=== PATIENT | female | born 1975 | race Caucasian/White ===

== ENCOUNTER → 2020-03-07 | Outpatient (CLI) | payer BC, MEDICARE, SELFPAY ==
[2020-03-07 09:28] VITALS: BMI 37.0
[2020-03-07 10:43] LABS: Absolute Lymphocyte Count 1.51 X10^3/uL (0.83-4.51); Absolute Neutrophil Count 4.6 X10^3/uL (2.0-7.7); Basophil# 0.02 X10^3/uL; Basophil% 0.3 % (0-1); Hematocrit 38.1 % (37-47); Hemoglobin 12.6 g/dL (12.0-15.0); Lymphocyte # 1.51 X10^3/ul (4.0); Lymphocyte % 22.3 % (19-41); Mean Corp Hgb Conc 33.1 g/dL (32-36); Mean Corpuscular Hgb 31.8 pg (27.0-32.0); Mean Corpuscular Volume 96.2 fL (81-99); Mean Platelet Vol. 10.5 fl (6.2-12.0); Monocyte# 0.38 X10^3/uL; Monocyte% 5.6 % (0-10); NRBC Flagged by Analyzer 0 % (0-5); Neutrophil # 4.63 X10^3/uL (2.7-7.7); Neutrophil % 68.5 % (47-70); Platelet Count 273 K/mm3 (150-450); RBC Distribution Width CV 12.6 % (11.6-14.6); RBC Distribution Width SD 43.9 fl (35.1-43.9); Red Blood Count 3.96 M/mm3 (4.2-5.4); White Blood Count 6.8 K/mm3 (4.4-11.0)
[2020-03-07 11:50] LABS: Prolactin 8.8 ng/mL; T4 Free Direct 1.07 ng/dL (0.76-1.46); Thyroid Stim Hormone (TSH) 1.93 uIU/mL (0.358-3.74)
== END | disposition home or self-care (01) ==
LOC: PAVLAB 10:16
PROVIDERS: PCP Family Medicine; Referring Provider Obstetrics & Gynecology; Visit Provider Obstetrics & Gynecology
DX: N92.6 Irregular menstruation, unspecified (principal)
CPT/HCPCS: 36415; 84146; 84439; 84443; 85025

== ENCOUNTER → 2020-03-29 | Outpatient (CLI) | payer BC, MEDICARE, SELFPAY ==
[2020-03-07 09:28] VITALS: BMI 37.0
--- NOTE | 2020-03-29 08:13 | US_ITS ---
STUDY: ULTRASOUND OF THE FEMALE PELVIS - COMPLETE REASON FOR EXAM: Female, 44 years old. IRREGULAR MENSES LMP: 03/08/2020. TECHNIQUE: Transabdominal and Transvaginal TECHNICAL QUALITY: Adequate. COMPARISON: None. FINDINGS: The uterus is anteverted and is in a midline position. The uterus is enlarged and measures 14.2 cm x 7.1 cm x 6.7 cm. There is a Nabothian cyst of the cervix. The endometrium is thickened and measures 15 mm in thickness, and is hyperechoic. There is no demonstrated endometrial mass. There is a 2.4 cm x 2.7cm x 1.3 cm fundal fibroid. I.U.D. - The patient does not have an I.U.D. The right ovary is visualized. The right ovary is enlarged and measures 9.3 cm x 10.7 cm x 9.4 cm. There is a 7.7 cm x 9.6 cm x 8.8 cm right ovarian cyst. There is no visualized right adnexal mass or complex lesion. There is normal arterial and normal venous vascularity. The left ovary is visualized. The left ovary measures 3.6 cm x 4.1 cm x 2.2 cm. There is a 2.4 cm x 2.8 cm x 1.7 cm cyst within There is no visualized left adnexal mass or complex lesion. There is normal arterial and normal venous vascularity. There is no fluid in the cul-de-sac. IMPRESSION: Enlarged fibroid uterus with thickened endometrium. Bilateral ovarian cysts more prominent on the right side which measures 7.7 cm x 9.6 cm x 8.8 cm. Electronically Signed: Mikhail Landon, at 12:56 EDT , Service support , STUDY: ULTRASOUND OF THE FEMALE PELVIS - LIMITED REASON FOR EXAM: Female, 44 years old IRREGULAR MENSES TECHNIQUE: Transabdominal and Transvaginal TECHNICAL QUALITY: Adequate. COMPARISON: None. FINDINGS: The uterus is anteverted and is in a midline position. The uterus measures 14.2 x 7.1 x 6.7 cm. Normal uterine cervix. The endometrium is thickened and measures 15 mm in thickness, and is hyperechoic. There is no demonstrated endometrial mass. There is a 2.4 cm x 2.7 cm x 1.3 cm fundal fibroid. The right ovary measures 9.3 cm x 10.7 cm x 9.4 cm. There is a 7.7 cm x 9.6 cm x 8.8 cm cyst. There is normal arterial and normal venous vascularity. The left ovary measures 3.6 cm x 4.1 cm x 2.2 cm. Is a 2.4 cm x 2.8 cm x 1.7 cm cyst. There is no visualized left adnexal mass or complex lesion. There is normal arterial and normal venous vascularity. There is no fluid in the cul-de-sac. US/Pelvic (Non ) IMPRESSION: Enlarged fibroid uterus with thickened endometrium. Bilateral ovarian cysts more prominent on the right side. Electronically Signed: Mikhail Landon, at 12:58 EDT , Service support ,
--- NOTE | 2020-03-29 08:13 | US_ITS ---
STUDY: ULTRASOUND OF THE FEMALE PELVIS - COMPLETE REASON FOR EXAM: Female, 44 years old. IRREGULAR MENSES LMP: 03/08/2020. TECHNIQUE: Transabdominal and Transvaginal TECHNICAL QUALITY: Adequate. COMPARISON: None. FINDINGS: The uterus is anteverted and is in a midline position. The uterus is enlarged and measures 14.2 cm x 7.1 cm x 6.7 cm. There is a Nabothian cyst of the cervix. The endometrium is thickened and measures 15 mm in thickness, and is hyperechoic. There is no demonstrated endometrial mass. There is a 2.4 cm x 2.7cm x 1.3 cm fundal fibroid. I.U.D. - The patient does not have an I.U.D. The right ovary is visualized. The right ovary is enlarged and measures 9.3 cm x 10.7 cm x 9.4 cm. There is a 7.7 cm x 9.6 cm x 8.8 cm right ovarian cyst. There is no visualized right adnexal mass or complex lesion. There is normal arterial and normal venous vascularity. The left ovary is visualized. The left ovary measures 3.6 cm x 4.1 cm x 2.2 cm. There is a 2.4 cm x 2.8 cm x 1.7 cm cyst within There is no visualized left adnexal mass or complex lesion. There is normal arterial and normal venous vascularity. There is no fluid in the cul-de-sac. IMPRESSION: Enlarged fibroid uterus with thickened endometrium. Bilateral ovarian cysts more prominent on the right side which measures 7.7 cm x 9.6 cm x 8.8 cm. Electronically Signed: Mikhail Landon, at 12:56 EDT , Service support , STUDY: ULTRASOUND OF THE FEMALE PELVIS - LIMITED REASON FOR EXAM: Female, 44 years old IRREGULAR MENSES TECHNIQUE: Transabdominal and Transvaginal TECHNICAL QUALITY: Adequate. COMPARISON: None. FINDINGS: The uterus is anteverted and is in a midline position. The uterus measures 14.2 x 7.1 x 6.7 cm. Normal uterine cervix. The endometrium is thickened and measures 15 mm in thickness, and is hyperechoic. There is no demonstrated endometrial mass. There is a 2.4 cm x 2.7 cm x 1.3 cm fundal fibroid. The right ovary measures 9.3 cm x 10.7 cm x 9.4 cm. There is a 7.7 cm x 9.6 cm x 8.8 cm cyst. There is normal arterial and normal venous vascularity. The left ovary measures 3.6 cm x 4.1 cm x 2.2 cm. Is a 2.4 cm x 2.8 cm x 1.7 cm cyst. There is no visualized left adnexal mass or complex lesion. There is normal arterial and normal venous vascularity. There is no fluid in the cul-de-sac. US/Transvaginal Non- IMPRESSION: Enlarged fibroid uterus with thickened endometrium. Bilateral ovarian cysts more prominent on the right side. Electronically Signed: Mikhail Landon, at 12:58 EDT , Service support ,
--- NOTE | 2020-03-29 08:15 | BI_ITS ---
MAMMOGRAPHY - BILATERAL SCREENING REASON FOR EXAM: Female, 44 years old. Routine annual screening examination. PERTINENT HISTORY: Non-contributory. History of bilateral breast reduction surgery. TECHNIQUE: Digital bilateral breast marychuy (3D mammographic acquisition) in the CC and MLO projections. 2-D mediolateral oblique (MLO) and craniocaudad (CC) views of both breasts were obtained. CAD: Full Field Digital Mammography with Computer Added Detection was performed. COMPARISON: Comparison is made with prior abdomen examination dated 08/10/2016. FINDINGS: Breast Composition: The breasts are almost entirely fatty. There are no dominant masses or suspicious calcifications. Stable benign-appearing bilateral axillary lymph nodes. No other significant abnormalities are identified. There has been no significant change since the prior study. BI/SCREEN MAMM (CAD) W/MARYCHUY BILAT IMPRESSION: Stable bilateral screening mammogram. Yearly follow-up mammogram recommended. (A) ASSESSMENT CATEGORY: BIRADS Category 2: Benign. A letter regarding these results will be sent to the patient by the facility within 30 days. Approximately 10% of breast cancers are not detected by mammography. A normal mammogram should not delay biopsy of a clinically suspicious abnormality. [id number] Electronically Signed: Mikhail Landon, at 10:26 EDT , Service support ,
[2020-04-01 21:23] LABS: HPV APTIMA, High Risk Negative (Negative)
== END | disposition home or self-care (01) ==
PROVIDERS: PCP Family Medicine; Referring Provider Obstetrics & Gynecology; Visit Provider Obstetrics & Gynecology
DX: N92.6 Irregular menstruation, unspecified (principal); Z12.31 Encounter for screening mammogram for malignant neoplasm of breast; Z12.4 Encounter for screening for malignant neoplasm of cervix
CPT/HCPCS: 76830; 76856; 77063; 77067; 87624; 88175; G0145

== ENCOUNTER 2020-04-19 06:40 | Day surgery (SDC) | payer BC, MEDICARE, SELFPAY ==
[2020-03-30 15:54] VITALS: BMI 37.0
--- NOTE | 2020-04-13 10:23 | EKG12_ITS ---
Test Reason : PRE OP Blood Pressure : / mmHG Vent. Rate : 079 BPM Atrial Rate : 079 BPM P-R Int : 156 ms QRS Dur : 086 ms QT Int : 380 ms P-R-T Axes : 045 -34 032 degrees QTc Int : 435 ms Normal sinus rhythm Left axis deviation Nonspecific T wave abnormality Abnormal ECG Confirmed by SHRADDHA BEGUM, ARTEMIO ([id number]), manager editorial HENRRY KC ([id number]) on 04/14/2020 8:14:05 AM Referred By: Margaret Teague Confirmed By:ARTEMIO LLANES MD
--- NOTE | 2020-04-16 00:59 | PCM.HPOB.BLA ---
- Problem List (1) Abnormal uterine bleeding Status: Acute Comment: recommend lab evaluation, imaging, and discussed hormonal therapy. fu for emb and liletta insertion. handouts given and patient info websites recommended. (2) Bilateral ovarian cysts Status: Acute Comment: recommend removal of ovary and drainage of cysts. Enlarged 14 cm fibroid uterus with thickened endometrium. Bilateral ovarian cysts more prominent on the right side which measures 7.7 cm x 9.6 cm x 8.8 cm. left 3 cm (3) Endometriosis Status: Acute Comment: diagnosed in past by Dr Hardwick. History and Physical Date of Admission: 04/19/20 Intake Vital Signs 03/30/20 BMI 37.0 03/30/20 Height 4 ft 11 in 03/30/20 Weight: 184 lb 03/30/20 BMI 37.1 03/30/20 BP 118/84 H Intake Visit Reasons: consult Chief Complaint: surgical consult Technical Writer And Editor Required: No Is patient in pain?: No Allergies acetaminophen [From [place]] Allergy (Mild, Verified 03/30/20 15:53) vomiting hydrocodone [From [place]] Allergy (Mild, Verified 03/30/20 15:53) vomiting oxycodone [From [place]] Allergy (Mild, Verified 03/30/20 15:53) vomiting Medications omeprazole 20 mg capsule,delayed release 20 mg PO DAILY 03/07/20 [History Confirmed 03/30/20] fluoxetine 20 mg capsule 20 mg PO DAILY #30 cap 03/08/20 [Rx Confirmed 03/30/20] Is last menstrual period known: No Post menopausal: No Patient : No : No PFSH Medical History Heartburn (Chronic) Endometriosis (Acute) Fibromyalgia (Chronic) Surgical History S/P colonoscopy (Acute) S/P (Resolved) S/P abdominoplasty (Resolved) S/P cholecystectomy (Resolved) S/P dilation and curettage (Resolved) S/P laparoscopy (Resolved) Status post breast reduction (Resolved) Family History Mother Colon cancer CVA (cerebral vascular accident) Social History (Updated 03/30/20 @ 16:[address] Margaret Teague MD) Smoking Status: Never smoker alcohol intake: never substance use type: does not use caffeine: Yes what type of physical activity do you participate in: yoga frequency: 1-2 times per week seatbelt use: always do you feel safe at home: Yes additional social history: Wwmglno-Ixqmlf-Nxwasj [employer]upp Patient is unemployed HPI consult: Details: CHARITY CANTOR is a 44 year old who presents for fu of AUB and enlarged uterus, cervical stenosis. she was planning on an IUD and was unable to have it placed. she had bilateral ovarian cysts seen on ultrasound one of which is 9 cm. She has persistent heavy bleeding and is needing definitive therapy. Female Reproductive History Menopausal Symptoms: Yes hot flashes, Yes night sweats, Yes difficulty concentrating, No change in libido Pregancy History 2 Elective abortions Hx Para 1 Spontaneous abortions 1 Hx # Term Pregnancies Ectopic pregnancies Hx # Pregnancies Multiple births 1 # of living children 2 Past Pregnancies Del. Date Name GA/Weeks Outcome Route Bth Weight Infant Gen Labor Lgth Anesthesia Del [facility] Provider FOB Unknown Memo/Chirag-2000 ROS Const Constitutional: Reports difficulty sleeping, fatigue, night sweats and weight gain; denies fever(s), headache(s), increased appetite, poor appetite or weight loss Eyes Eyes: Reports blurry vision and change in vision ENT ENT: Denies dry mouth Cardio Card: Denies chest pain Resp Resp: Denies cough or dyspnea GI GI: Reports as per HPI, abdominal pain, bloating, cramping and nausea; denies constipation or vomiting : Reports as per HPI, hot flashes, heavy periods, metrorrhagia and pelvic pain; denies difficulty urinating, painful urination, nipple discharge, urinary frequency, urinary incontinence, urinary hesitancy, urinary urgency, vaginal discharge, vaginal dryness, vaginal odor or vaginal itching Musc Musc: Reports joint pain and back pain Skin Skin/Breast: Denies nipple discharge Psych Psych: Reports anxiety, depression, difficulty concentrating, irritability and panic attacks; denies change in sex drive Exam Const General: cooperative, healthy appearing, comfortable, no acute distress, well developed Orientation: alert HENMT Head: normal to inspection, normocephalic Neck Neck: normal visual inspection, trachea midline Thyroid: thyroid normal Resp Effort & Inspection: normal respiratory effort GI Inspection: normal to inspection, non-distended Palpation: soft, no hepatosplenomegaly Musc Other: gross motor intact no deficits, full bilateral strength Skin General: no rashes or lesions noted Neuro General: alert, awake, moves all extremities, no focal motor deficits Motor: muscle tone normal throughout Extrem General: normal to inspection, no pedal edema Psych Appearance: grossly normal Mental Status: mental status grossly normal Affect: normal affect Speech and Movement: speech and movement normal Assessment & Plan Problems 1. Bilateral ovarian cysts N83.201; N83.202 recommend 2. Abnormal uterine bleeding N93.9 recommend lab evaluation, imaging, and discussed hormonal therapy. failed EMB and uterus enlarged that surgical treatment is recommended. handouts given and patient info websites recommended. 3. Endometriosis N80.9 diagnosed in past by Dr Hardwick. Plan plan [facility] oophorectomy, ovarian cystectomy and cystoscopy. After discussing the patient's diagnosis and treatment plan options, patient wishes to proceed with surgical management. I have discussed with the patient the risks, benefits, and alternatives of the procedure which include but are not limited to risks of anesthesia, bleeding, infection, possible damage to bowel, bladder, or surrounding vasculature which could lead to additional surgery to evaluate any complications. Patient agrees to procedure and wishes to proceed. ACOG/uptodate references given for additional information regarding procedure. Coding Level of Care Code Off vis,est,level 5 Diagnoses Bilateral ovarian cysts N83.201; N83.202 Abnormal uterine bleeding N93.9 Endometriosis N80.9
[2020-04-19] VITALS (14 sets, daily range): BP systolic 85–137; BP diastolic 38–82; PULSE 71–100; RESP 14–18; TEMP 36.1–37.1; O2SAT 95–100; BMI 37.1
[2020-04-19] MEDS: dexAMETHasone 10 MG/ML Vial 8 MG IV (07:00)
[2020-04-19] MEDS: Enoxaparin 40 MG/0.4 ML Syringe SC (07:00)
[2020-04-19 07:16] LABS: Absolute Lymphocyte Count 1.56 X10^3/uL (0.83-4.51); Absolute Neutrophil Count 4.1 X10^3/uL (2.0-7.7); Basophil# 0.03 X10^3/uL; Basophil% 0.5 % (0-1); Eosinophil# 0.12 X10^3/uL; Eosinophils% 1.9 % (0-5); Hematocrit 40.5 % (37-47); Hemoglobin 13.2 g/dL (12.0-15.0); Lymphocyte # 1.56 X10^3/ul (4.0); Lymphocyte % 25.2 % (19-41); Mean Corp Hgb Conc 32.6 g/dL (32-36); Mean Corpuscular Hgb 31.3 pg (27.0-32.0); Mean Platelet Vol. 10.1 fl (6.2-12.0); Monocyte# 0.33 X10^3/uL; Monocyte% 5.3 % (0-10); NRBC Flagged by Analyzer 0 % (0-5); Neutrophil # 4.14 X10^3/uL (2.7-7.7); Neutrophil % 66.8 % (47-70); Platelet Count 306 K/mm3 (150-450); RBC Distribution Width CV 12.6 % (11.6-14.6); Red Blood Count 4.22 M/mm3 (4.2-5.4); White Blood Count 6.2 K/mm3 (4.4-11.0)
[2020-04-19 07:17] LABS: Internal QC Validated? YES +Cl - CLEAR BKGD; Pregnancy, Urine Negative Negative
--- NOTE | 2020-04-19 07:25 | OP.PCM_ITS ---
Problem List (1) Abnormal uterine bleeding Status: Acute Comment: recommend lab evaluation, imaging, and discussed hormonal therapy. fu for emb and liletta insertion. handouts given and patient info websites recommended. (2) Bilateral ovarian cysts Status: Acute Comment: recommend removal of ovary and drainage of cysts. Enlarged 14 cm fibroid uterus with thickened endometrium. Bilateral ovarian cysts more prominent on the right side which measures 7.7 cm x 9.6 cm x 8.8 cm. left 3 cm (3) Endometriosis Status: Acute Comment: diagnosed in past by Dr Hardwick. Report of Operation Date of Procedure: 04/19/20 Pre-Operative Diagnosis: aub enlarged uterus ovarian cyst Post-Operative Diagnosis: same dense vesicouterine and uterine to anterior abdominal wall adhesions Surgery/Procedure Performed:: lavh bs cystoscopy Description of Surgical Findings:: Extensive vesicouterine to anterior abdominal wall adhesions dense sclerotic parametrial tissue. Pelvic congestion. Obliteration of round ligament on the right side and 3 times the thickness of around ligament on left side. 10 cm right ovary enlarged with simple cyst filled with clear fluid. Left ovary polycystic in appearance with 1 follicular cyst present. Omental to anterior abdominal wall adhesions. Enlarged uterus 14 cm size with multiple fibroids dense sclerotic tissue. Minimal uterine descent and limited vaginal access. Normal bladder lining bilateral strong ureteral spray day treatment clinician/art therapist: Kaitlynn Fairchild Type of Anesthesia:: General Special Medications: teresa Specimen's removed: uterus tubes Drains: tobias Estimated Blood Loss (mL): 150 Fluids Replaced: crystalloid Description of Procedure: Patient received preoperative antibiotics and SCDs were on preoperatively. Patient was taken back to the operating room and placed in the dorsal lithotomy position. General anesthesia was induced and patient was prepped and draped in normal sterile fashion. Uterine manipulator was placed inside the uterus and Tobias catheter placed in the bladder. The umbilicus was grasped with towel clamps and an intraumbilical incision was made after injecting with quarter percent Marcaine and a Veress needle entered into the abdomen confirmed to be intra-abdominal with a low opening pressure. Abdomen was insufflated with CO2 gas and the Veress needle removed and the 5 mm trocar was placed under direct visualization without complication. Right and left lower quadrants were transilluminated and injected with quarter percent Marcaine and 5 mm ports placed under direct visualization. Pelvis was well visualized see operative findings for additional information. The omental to anterior abdominal wall adhesions were transected with the LigaSure device and then adhesio lysis began to release the anterior uterine corpus off of the anterior abdominal wall. These were very dense adhesions and required blunt dissection as well as sharp and cautery with the LigaSure device. This freed up the right side of the uterus down to the level of the round ligament on the right side which was obliterated due to adhesions and the enlarged uterine corpus. A 10 cm ovarian cyst was noted and opened and drained for clear serous fluid. The right ovary was removed as well as the right and left fallopian tubes which were transected across with the miso salpinx with the LigaSure device and the right infundibulopelvic ligament was transected with the LigaSure device. The left round ligament was also second 3 times its temporal size and this was transected and pieces using the LigaSure device and adhesio lysis was performed to release the lower uterine corpus off of the anterior abdominal wall in the bladder area. Extensive dissection was performed utilizing hydrodissection, blunt and also sharp dissection. Using a LigaSure device the bladder flap was created and opened and the uterine arteries were isolated as much as possible and burned and transected using the LigaSure device. Utilizing a 30 degree scope and changing between the 3 different port sites and using an DataPad uterine manipulator, the uterine blood supply was cauterized and cut bilaterally and the parametrial area was completely dissected to a portion of the vaginal procedure to begin. In total approximately 50 minutes were spent due to adhesio lysis and difficulty of the surgery due to the dense adhesions and the enlarged uterine size. Attention was then paid to the vaginal portion of the procedure and the cervix was grasped with Marshall clamps and circumferentially injected with dilute vasopressin. A circumferential incision was made and the vaginal mucosa was mobilized off posteriorly and the cul-de-sac entered into sharply and a longneck speculum placed. The anterior cul-de-sac was then identified and entered into sharply. The uterosacral ligaments were clamped cut and suture ligated with 0 Monocryl bilaterally followed by the cardinal ligaments which were clamped cut and suture ligated bilaterally with 0 Monocryl. The uterus serially descended and was removed without difficulty with significant morcellation. Pelvic sidewall pedicles were checked and noted to have excellent hemostasis. The vaginal mucosa was reapproximated incorporating the posterior peritoneum. This was reapproximated using 0 Vicryl [id number] sutures. Excellent hemostasis was noted. The cystoscopy was then performed and bilateral ureteral strong spray was noted and the bladder was noted to have no abnormality or lesions seen. Tobias catheter was replaced and then attention paid to the abdominal portion of the procedure again. The pelvis and cul-de-sac was well visualized and no significant active bleeding noted but some raw areas were seen on the peritoneum and therefore Teresa was applied. Pressure was taken down and the areas visualized and noted of excellent hemostasis. All ports were removed under direct visualization without complication and the abdomen was desufflated of air. The instruments removed from the abdomen and the vagina vaginal sweep was negative. Port sites on the abdomen were closed with 4-0 Monocryl interrupted sutures and Steri's and windows were applied. She was awoken and taken recovery in stable condition. Grafts/Implants Used: none - Complications none - Admit VTE Documentation VTE Present on Admission: No VTE Mechan Device Prophylaxis: SCD's VTE Pharm Prophylaxis ordered?: Yes Multi Select Codes - Urinary/Genital Urinary/Genital CPT Codes: 70900 Cystoscopy, 98287 LAVH+BS/O >250gr Uterus, 78839 Lysis of adhesions, laproscopic - 50 minutes
[2020-04-19 07:27] LABS: Anion Gap 5 (5-15); BUN 10 mg/dL (7-18); Calcium,Total 8.8 mg/dL (8.5-10.1); Chloride 107 mmol/L (98-107); Creatinine, Serum 0.84 mg/dL (0.55-1.02); EST Glomerular Filtration Rate 78 mL/min (>60); Est Glom Filt Rate - Afr Amer 94 mL/min (>60); Glucose 111 mg/dL (74-106); Magnesium 2.2 mg/dL (1.6-2.6); Potassium 3.5 mmol/L (3.5-5.1); Sodium Level 139 mmol/L (136-145)
[2020-04-19 07:46] LABS: Bedside Glucose 115 mg/dL (70-110)
[2020-04-19] MEDS: Lactated Ringers 1,000 ML 40 ML IV (08:02)
[2020-04-19] MEDS: Phenazopyridine 95 MG Tablet 190 MG PO (08:03)
[2020-04-19] MEDS: Celecoxib 200 MG Capsule 400 MG PO (08:03)
[2020-04-19] MEDS: Gabapentin 600 MG Tablet PO (08:04)
[2020-04-19] MEDS: Scopolamine 1mg/72hr Patch 1 PATCH TRANSDERM. (08:05)
[2020-04-19] MEDS: Acetaminophen 500 MG Tablet 1000 MG PO ×3 (08:08→17:41)
--- NOTE | 2020-04-19 08:45 | HYST_PTH ---
PATIENT: CHARITY CANTOR [place] [facility] [place][id number] AGE/SX: 45/F ROOM: RE04/19/[address]: Dr. Margaret Teague MD : [id number] BED: DIS: 04/20/2020 SPEC #: [id number] RECD: 04/19/20 12:28 STATUS: MARY SHANTA #: [id number] ALICIA: 04/19/20 08:[address]: Margaret Teague DEPT: SURGICAL PATHOLOGY RECD BY: Karen Faust ENTERED: 04/19/20 13:32 SP TYPE: HYSTERECT OTHR DR: Dr. Jah Leyva MD Tissues: Uterus, NOS Procedures: Special Stain Group II Mucicarmine Stain (control) Surgery Specimen Level V HEADER OPERATION: ERAS, hysterectomy, LAVH, salpingectomy, right oophorectomy PRE-OP DIAGNOSIS: Bilateral ovarian cysts, abnormal uterine bleeding, endometriosis TISSUE SUBMITTED: Uterus, bilateral fallopian tubes, right ovary MICROSCOPIC DIAGNOSIS Uterus, hysterectomy: Cervix - squamous metaplasia, minimal chronic inflammation and nabothian cysts. Endometrium - transition endometrium. Myometrium - leiomyomas and focal superficial adenomyosis. Right and left fallopian tubes - no pathologic change. Right ovary - mucinous cystadenoma. See comment. AM:rufus 04/20/20 COMMENT Mucin stain with matched control was used in the evaluation of this case. MICROSCOPIC DESCRIPTION Slides are reviewed. GROSS DESCRIPTION Received in fixative is one container labeled with the patient's name and designated uterus. The specimen consists of a uterus received in eight fragments ranging in size from 3 cm to 8 cm and in aggregate weighing 207 gm. A fallopian tube is attached to the largest fragment. The fallopian tube measures 6 cm in length and 0.7 cm in average diameter and contains a normal fimbriated end. The presumed endocervical segment measures 5.5 cm in length. Due to fragmentation, the endometrial cavity is obstructed. The reddish-whitt endometrium measures up to 0.2 cm in thickness. The myometrium measures 2.2 cm in average thickness and contains two white rubbery nodules ranging in size from 0.3 to 0.4 cm. Also present free in the container is a pink-whitt cystic ovary with attached fallopian tube. The cystic ovary measures 7 x 6.5 x 1.5 cm. The adjacent fallopian tube measures 5 cm in length and 0.7 cm in average diameter. No tubo-ovarian adhesions are evident. The external appears smooth and glistening. No papillary projections or excrescences are identified. The external surface of the ovary is inked and the ovary serially sectioned to reveal a smooth, glistening inner surface. The cystic ovary averages 0.5 cm in thickness. Apparel Pattern Maker sections are submitted cassettes as follows: 1 - ecto- and endocervix, 2 - fallopian tube attached to uterus, 3 - endometrium/myometrium, 4 - endometrium/ myometrium and myometrial nodules, 5 & 6 - endometrium/myometrium, 7 - fallopian tube attached to cystic ovary, 8-12 - cystic ovary. / AM:rufus 04/19/20 TC:1 CPT: 24154, 54387
--- NOTE | 2020-04-19 08:48 | DCINST_ITS ---
Discharge Diet: No Restrictions Discharge Activity: Return to Normal Activity, May Not Drive, May Shower May resume sexual activity in: 6-8 weeks Call your doctor if your incision/area has: Continuous Slow Oozing, Sudden Increased Bleeding, Increased Pain/ Swelling, Increased Redness, Foul Smelling Discharge Call your doctor if you observe: Fever of 101 or Higher, Inability to urinate, Inability to have a bowel movement, Using more than one pad per hour Allergies/Adverse Reactions: Allergies hydrocodone [From [place]] Allergy (Mild, Verified 04/19/20 07:27) vomiting oxycodone [From Percocet] Allergy (Mild, Verified 04/19/20 07:27) vomiting Medications to take at Discharge fluoxetine 40 mg capsule 40 mg PO DAILY #30 cap 03/30/20 Acyclovir [Zovirax] 400 mg PO BID PRN 04/11/20 Multivitamin with Minerals [Multiple Vitamin] 1 ea PO DAILY 04/11/20 Pantoprazole Sodium [Protonix] 40 mg PO DAILY 04/11/20 Naproxen [Naprosyn] 250 - 500 mg PO Q8H PRN PRN #30 tab 04/19/20 The following prescriptions were given: Naproxen [Naprosyn] 250 - 500 mg PO Q8H PRN PRN #30 tab PRN Reason: MILD PAIN Transmission Status: Received by [facility] Orders to be completed after discharge: Type & Screen - PAT ONLY Time Frame: 04/13/20, Facility: [facility], Location: Laboratory Basic Metabolic Profile (BMP) Time Frame: 04/13/20, Facility: [facility], Location: Laboratory CBC W/Diff, Automated Time Frame: 04/13/20, Facility: [facility], Location: Laboratory Magnesium Time Frame: 04/13/20, Facility: [facility], Location: Laboratory Primary Care Physician: Jah Leyva MD [Primary Care Provider] - Test Results: Test results from this visit will be discussed in further detail at your follow- up appointment, if applicable. Please Follow Up With: Margaret Teague MD - [phone]
[2020-04-19] MEDS: Cefazolin 2 GM in 0.9% Normal Saline 100 ML IV (08:50)
[2020-04-19] MEDS: Lubricating Jelly 60 GM Tube 30 GM TOPICAL (09:01)
[2020-04-19] MEDS: Vasopressin 20 UNITS/ML Vial (10:00)
[2020-04-19] MEDS: Bupivacaine 0.25% 30 ML Vial (11:00)
[2020-04-19] MEDS: Lactated Ringers 1,000 ML 100 ML IV (11:43)
[2020-04-19] MEDS: Lactated Ringers 1,000 ML 70 ML IV (12:12)
[2020-04-19] MEDS: Docusate Sodium 100 MG Capsule PO ×2 (13:44→21:45)
[2020-04-19] MEDS: Ketorolac 30 MG/ML Syringe IV ×2 (14:34→20:18)
[2020-04-20] MEDS: Acetaminophen 500 MG Tablet 1000 MG PO (00:02)
[2020-04-20] MEDS: Ketorolac 30 MG/ML Syringe IV ×2 (01:58→08:11)
[2020-04-20 02:25] VITALS: BP 108/54; PULSE 82; RESP 16; TEMP 36.8; O2SAT 97
[2020-04-20 06:58] LABS: Hematocrit 34.7 % (37-47); Hemoglobin 11.1 g/dL (12.0-15.0); Mean Corpuscular Hgb 30.9 pg (27.0-32.0); Mean Corpuscular Volume 96.7 fL (81-99); Mean Platelet Vol. 10.4 fl (6.2-12.0); Platelet Count 269 K/mm3 (150-450); RBC Distribution Width CV 12.3 % (11.6-14.6); RBC Distribution Width SD 44.2 fl (35.1-43.9); Red Blood Count 3.59 M/mm3 (4.2-5.4); White Blood Count 10.8 K/mm3 (4.4-11.0)
[2020-04-20 08:10] VITALS: BP 112/69; PULSE 64; RESP 18; TEMP 36.7; O2SAT 99
[2020-04-20] MEDS: 0.9% Saline Lock 10 ML Syringe IV (08:11)
--- NOTE | 2020-04-20 08:18 | PN.OBGYN_ITS ---
Patient Problems: Active and Suspected Problems (Last Reviewed 03/30/20 @ 15:54 by Whitney Allen) History of right oophorectomy (Acute ~04/19/20) H/O bilateral salpingectomy (Acute ~04/19/20) History of laparoscopic-assisted vaginal hysterectomy (Acute ~04/19/20) Subjective: Patient seen and examined. Doing well. Pain controlled. Denies nausea and vomiting. Passing gas. Ambulating without difficulty. Asking how soon she can go home. Objective: Laboratory Tests 04/20/20 04/19/20 04/19/20 Range/Units 05:25 Unknown 07:39 WBC 10.8 (4.4-11.0) K/mm3 RBC 3.59 L (4.2-5.4) M/mm3 Hgb 11.1 L (12.0-15.0) g/dL Hct 34.7 L (37-47) % MCV 96.7 (81-99) fL MCH 30.9 (27.0-32.0) pg MCHC 32.0 (32-36) g/dL RDW Std Deviation 44.2 H (35.1-43.9) fl RDW Coeff of Kwaku 12.3 (11.6-14.6) % Plt Count 269 (150-450) K/mm3 MPV 10.4 (6.2-12.0) fl Immature Gran % (Auto) (0.0-0.9) % Neut % (Auto) (47-70) % Lymph % (Auto) (19-41) % [place] % (Auto) (0-10) % Eos % (Auto) (0-5) % Baso % (Auto) (0-1) % Absolute Neuts (auto) (2.0-7.7) X10^3/uL Absolute Lymphs (auto) (0.83-4.51) X10^3/uL Nucleated RBC % (0-5) % Sodium (136-145) mmol/L Potassium (3.5-5.1) mmol/L Chloride (98-107) mmol/L Carbon Dioxide (21.0-32.0) mmol/L Anion Gap (5-15) BUN (7-18) mg/dL Creatinine (0.55-1.02) mg/dL Est GFR (MDRD) Af Amer (>60) mL/min Est GFR (MDRD) Non-Af (>60) mL/min BUN/Creatinine Ratio (10-20) RATIO Glucose (74-106) mg/dL Calcium (8.5-10.1) mg/dL Magnesium (1.6-2.6) mg/dL Urine Test Negative Negative COVID-19 (SORIN) (Not Detected) POC Glucose 115 H (70-110) mg/dL Blood Type Antibody Screen 04/19/20 04/19/20 04/19/20 Range/Units 07:10 07:10 07:10 WBC 6.2 (4.4-11.0) K/mm3 RBC 4.22 (4.2-5.4) M/mm3 Hgb 13.2 (12.0-15.0) g/dL Hct 40.5 (37-47) % MCV 96.0 (81-99) fL MCH 31.3 (27.0-32.0) pg MCHC 32.6 (32-36) g/dL RDW Std Deviation 44.0 H (35.1-43.9) fl RDW Coeff of Kwaku 12.6 (11.6-14.6) % Plt Count 306 (150-450) K/mm3 MPV 10.1 (6.2-12.0) fl Immature Gran % (Auto) 0.300 (0.0-0.9) % Neut % (Auto) 66.8 (47-70) % Lymph % (Auto) 25.2 (19-41) % [place] % (Auto) 5.3 (0-10) % Eos % (Auto) 1.9 (0-5) % Baso % (Auto) 0.5 (0-1) % Absolute Neuts (auto) 4.1 (2.0-7.7) X10^3/uL Absolute Lymphs (auto) 1.56 (0.83-4.51) X10^3/uL Nucleated RBC % 0 (0-5) % Sodium 139 (136-145) mmol/L Potassium 3.5 (3.5-5.1) mmol/L Chloride 107 (98-107) mmol/L Carbon Dioxide 27.0 (21.0-32.0) mmol/L Anion Gap 5 (5-15) BUN 10 (7-18) mg/dL Creatinine 0.84 (0.55-1.02) mg/dL Est GFR (MDRD) Af Amer 94 (>60) mL/min Est GFR (MDRD) Non-Af 78 (>60) mL/min BUN/Creatinine Ratio 12.0 (10-20) RATIO Glucose 111 H (74-106) mg/dL Calcium 8.8 (8.5-10.1) mg/dL Magnesium 2.2 (1.6-2.6) mg/dL Urine Test Negative COVID-19 (SORIN) (Not Detected) POC Glucose (70-110) mg/dL Blood Type A POSITIVE Antibody Screen NEGATIVE 04/13/20 Range/Units 10:25 WBC (4.4-11.0) K/mm3 RBC (4.2-5.4) M/mm3 Hgb (12.0-15.0) g/dL Hct (37-47) % MCV (81-99) fL MCH (27.0-32.0) pg MCHC (32-36) g/dL RDW Std Deviation (35.1-43.9) fl RDW Coeff of Kwaku (11.6-14.6) % Plt Count (150-450) K/mm3 MPV (6.2-12.0) fl Immature Gran % (Auto) (0.0-0.9) % Neut % (Auto) (47-70) % Lymph % (Auto) (19-41) % [place] % (Auto) (0-10) % Eos % (Auto) (0-5) % Baso % (Auto) (0-1) % Absolute Neuts (auto) (2.0-7.7) X10^3/uL Absolute Lymphs (auto) (0.83-4.51) X10^3/uL Nucleated RBC % (0-5) % Sodium (136-145) mmol/L Potassium (3.5-5.1) mmol/L Chloride (98-107) mmol/L Carbon Dioxide (21.0-32.0) mmol/L Anion Gap (5-15) BUN (7-18) mg/dL Creatinine (0.55-1.02) mg/dL Est GFR (MDRD) Af Amer (>60) mL/min Est GFR (MDRD) Non-Af (>60) mL/min BUN/Creatinine Ratio (10-20) RATIO Glucose (74-106) mg/dL Calcium (8.5-10.1) mg/dL Magnesium (1.6-2.6) mg/dL Urine Test Negative COVID-19 (SORIN) Not Detected (Not Detected) POC Glucose (70-110) mg/dL Blood Type Antibody Screen - Physical Exam Vitals/I&O's: Vital Signs Temp Pulse Resp BP Pulse Ox 98.0 F 64 18 112/69 99 04/20/20 08:10 04/20/20 08:10 04/20/20 08:10 04/20/20 08:10 04/20/20 08:10 Oxygen Flow Rate (L/min) 6 Oxygen Delivery Method Room Air Weight: 183 lb 13.848 oz Body Mass Index (BMI) 37.1 Intake and Output for Last 24 Hours 04/18/20 04/19/20 04/20/20 23:59 23:59 23:59 Intake Total 3015 / 3015 1000 / 1000 Output Total 2450 / 3900 1750 / 1750 Balance 565 / -885 -750 / -750 General: Alert, Oriented x3, Cooperative HEENT: Atraumatic, PERRLA, EOMI, Normocephalic Neck: Supple, No JVD, Negative Carotid Bruits Lungs: Clear to auscultation, Normal air movement Cardiovascular: Regular rate, No murmurs Abdomen: Bowel Sounds Present, Soft, Non Tender, - - incisions c/d/i with dressings in place Extremities: No edema, Capillary Refill Less than 3 Seconds Skin: No rashes, No breakdown Musculoskeletal: No Tenderness to Palpation of Joints or Extremities Neurological: Cranial nerves II-XII grossly intact Psych/Mental Status: Normal Affect, Appropriate Laboratory Results 04/20/20 05:25: WBC 10.8, RBC 3.59 L, Hgb 11.1 L, Hct 34.7 L, MCV 96.7, MCH 30.9, MCHC 32.0, RDW Std Deviation 44.2 H, RDW Coeff of Kwaku 12.3, Plt Count 269, MPV 10.4 Current Medications Acetaminophen (Tylenol) 1,000 mg PO Q6 DA Last Admin: 04/20/20 06:47 Dose: Not Given Documented by: Docusate Sodium (Colace) 100 mg PO BID [facility] Last Admin: 04/19/20 21:45 Dose: 100 mg Documented by: Enoxaparin Sodium (Lovenox) 40 mg SC DAILY [facility] Lactated Ringer's () 1,000 mls @ 70 mls/hr IV .[id number] [facility] Stop: 04/20/20 11:45 Last Admin: 04/20/20 02:53 Dose: Not Given Documented by: Sodium Chloride () 250 mls @ 15 mls/hr IV .[id number] PRN PRN Reason: Saline Flush Sodium Chloride () 250 mls @ 15 mls/hr IV .[id number] PRN PRN Reason: Additional IVPB Infusion Ketorolac Tromethamine (Toradol (Bkc)) 30 mg IV Q6H [facility] Stop: 04/20/20 14:01 Last Admin: 04/20/20 08:11 Dose: 30 mg Documented by: Magnesium Chloride ([email or web address]) 128 mg PO DAILY PRN PRN PRN Reason: Constipation Nutritional Formula (Lactose Free) (Ensure Enlive) 120 ml PO TIDCM [facility] Last Admin: 04/20/20 08:11 Dose: 120 ml Documented by: Ondansetron HCl (Zofran Odt) 4 mg PO Q6H PRN PRN PRN Reason: NAUSEA Sodium Chloride () 10 - 40 ml IV UD PRN PRN Reason: SALINE FLUSH Last Admin: 04/20/20 08:11 Dose: 10 ml Documented by: Medical Necessity - Tobacco Use Smoking Status: Never smoker Tobacco Use: Non-smoker Assessment/Plan All Active Problems (Last Reviewed 03/30/20 @ 15:54 by Whitney Allen) History of right oophorectomy (Acute ~04/19/20) H/O bilateral salpingectomy (Acute ~04/19/20) History of laparoscopic-assisted vaginal hysterectomy (Acute ~04/19/20) Bilateral ovarian cysts (Acute) Depression with anxiety (Acute) Abnormal uterine bleeding (Acute) Endometriosis (Acute) POD#1 s/p LAVH, BS - Doing well this am - Ambulating without difficulty - Post op Hb stable - Pain controlled - Tolerating PO without nausea or vomiting - Incisions c/d/i - [place] out this am - Discharge orders placed - discussed homegoing pain meds. Plan for Tylenol #3
[2020-04-20] MEDS: Enoxaparin 40 MG/0.4 ML Syringe SC (09:19)
[2020-04-20] MEDS: Docusate Sodium 100 MG Capsule PO (09:19)
[2020-04-20 10:15] VITALS: O2SAT 96
== END 2020-04-20 10:20 | disposition home or self-care (01) ==
LOC: SDC 06:40 → AC 06:40 → MS3 04-20 09:15
PROVIDERS: Anesthesiology; PCP Family Medicine; Referring Provider Obstetrics & Gynecology; Visit Provider Obstetrics & Gynecology
PROC: 0UT9FZZ Resection of Uterus, Via Natural or Artificial Opening With Percutaneous Endoscopic Assistance (ICD-10-PCS; CPT 58552; principal; 2020-04-19 08:20)
DX: N87.9 Dysplasia of cervix uteri, unspecified (principal); N88.8 Other specified noninflammatory disorders of cervix uteri; N72 Inflammatory disease of cervix uteri; D25.9 Leiomyoma of uterus, unspecified; N80.0 Endometriosis of uterus; D27.0 Benign neoplasm of right ovary; K21.9 Gastro-esophageal reflux disease without esophagitis; F41.9 Anxiety disorder, unspecified; F32.9 Major depressive disorder, single episode, unspecified; Z11.59 Encounter for screening for other viral diseases; Z79.899 Other long term (current) drug therapy
CPT/HCPCS: 00840; 58552; 36415; 80048; 81025; 82962; 83735; 85025; 85027; 86850; 86900; 86901; 87635; 88307; 88313; 93005; 99251; C9803; J7120; A4216; G0463; J2405; U0003

== ENCOUNTER → 2023-04-29 | Outpatient (CLI) | payer BC, MEDICARE, SELFPAY ==
--- NOTE | 2023-04-29 10:38 | BI_ITS ---
MAMMOGRAPHY - BILATERAL SCREENING 3-D TOMOSYNTHESIS REASON FOR EXAM: Female, 48 years old. breast cancer screening PERTINENT HISTORY: No significant family history. TECHNIQUE: 2-D mammograms and 3-D Tomosynthesis of the breast (s) were performed. CAD was performed. COMPARISON: 03/29/2020 FINDINGS: The breast composition is composed of scattered fibroglandular density. Scattered benign calcifications are seen. No dense spiculated masses or suspicious microcalcifications are identified. No architectural distortion is identified. There is no skin thickening or retraction. There has been no significant change since the prior study. BI/SCRN MAMM (CAD)W/MARYCHUY BILAT IMPRESSION: No mammographic signs of malignancy. Routine yearly mammograms recommended. ASSESSMENT CATEGORY: BIRADS Category 1: Negative. A letter regarding these results will be sent to the patient by the facility within 30 days. FOLLOW UP RECOMMENDATION: Yearly follow up mammogram recommended. (A) Approximately 10% of breast cancers are not detected by mammography. A normal mammogram should not delay biopsy of a clinically suspicious abnormality. Electronically Signed: Tyron Morales MD at 13:53 EDT ,
== END | disposition home or self-care (01) ==
LOC: OPBI 10:37
PROVIDERS: PCP Family Medicine; Referring Provider Obstetrics & Gynecology; Visit Provider Obstetrics & Gynecology
DX: Z12.31 Encounter for screening mammogram for malignant neoplasm of breast (principal)
CPT/HCPCS: 77063; 77067

== ENCOUNTER → 2023-05-15 | Outpatient (CLI) | payer BC, MEDICARE, SELFPAY ==
--- NOTE | 2023-05-15 12:53 | US_ITS ---
STUDY: RENAL ULTRASOUND - COMPLETE REASON FOR EXAM: Female, 48 years old. FLANK PAIN TECHNIQUE: Ultrasound evaluation of the kidneys was performed with real-time and static sabillon-scale imaging. COMPARISON: None. FINDINGS: RIGHT KIDNEY: Normal location of the right kidney, which is normal in size. The right kidney measures 10.1 x 5.3 x 5.3 cm. There is a normal cortex of the right kidney. The renal cortex measures 1.5 cm. There is no right renal mass or cyst. There are no right renal calculi. There is no right hydronephrosis. DISTAL RIGHT URETER: There is non-visualization of the distal right ureter. There is no demonstrated right ureterovesical junction calculus. There is a visualized right ureteral jet. LEFT KIDNEY: Normal location of the left kidney, which is normal in size. The left kidney measures 10.8 x 5.2 x 5.9 cm. There is a normal cortex of the left kidney. The renal cortex measures 1.3 cm. There is no left renal mass or cyst. There are no left renal calculi. There is no left hydronephrosis. DISTAL LEFT URETER: There is non-visualization of the distal left ureter. There is no demonstrated left ureterovesical junction calculus. There is a visualized left ureteral jet. BLADDER: The distended urinary bladder has a volume of 429 ml. There is a normal wall thickness of the distended urinary bladder. There is no demonstrated mass within the urinary bladder. There are no demonstrated bladder calculi. US/Kidney and Bladder IMPRESSION: Normal ultrasound of the kidneys and urinary bladder. Electronically Signed: Jose Alfredo Cote MD at 16:54 EDT ,
== END | disposition home or self-care (01) ==
LOC: US 12:52
PROVIDERS: PCP Family Medicine; Referring Provider Urology; Visit Provider Urology
DX: R10.9 Unspecified abdominal pain (principal); Z87.442 Personal history of urinary calculi
CPT/HCPCS: 76770

== ENCOUNTER → 2024-05-08 | Outpatient (CLI) | payer BC, MEDICARE, SELFPAY ==
--- NOTE | 2024-05-08 08:00 | BI_ITS ---
MAMMOGRAPHY - BILATERAL SCREENING REASON FOR EXAM: Female, 49 years old. Routine annual screening examination. PERTINENT HISTORY: Non-contributory. History of prior bilateral breast reduction surgery. TECHNIQUE: Digital bilateral breast marychuy (3D mammographic acquisition) in the CC and MLO projections. 2-D mediolateral oblique (MLO) and craniocaudad (CC) views of both breasts were obtained. CAD: Full Field Digital Mammography with Computer Added Detection was performed. COMPARISON: Comparison is made with prior study April 29, 2023 and March 29, 2020. FINDINGS: Breast Composition: The breasts are almost entirely fatty. There are no dominant masses or suspicious calcifications. Stable bilateral fat containing axillary lymph nodes. No other significant abnormalities are identified. There has been no significant change since the prior study. BI/SCRN MAMM (CAD)W/MARYCHUY BILAT IMPRESSION: Stable bilateral screening mammogram. Yearly follow-up mammogram recommended. (A) ASSESSMENT CATEGORY: BIRADS Category 2: Benign. A letter regarding these results will be sent to the patient by the facility within 30 days. Approximately 10% of breast cancers are not detected by mammography. A normal mammogram should not delay biopsy of a clinically suspicious abnormality. [id number] Electronically Signed: Mikhail Landon MD at 9:18 EDT ,
--- OUTSIDE RECORDS SUMMARY | 2024-05-08 08:14 | XMS RPT_ITS | CCD ---
Author Organization [facility] Care Team Providers Care Videotape Editor Name Role Phone Mega Rivas Unavailable Unavailable Mega Rivas Unavailable Unavailable Mega Rivas Unavailable Unavailable Unavailable Mega Rivas MD Primary Care Provider [phone] MEGA RIVAS Attending Unavailable MEGA RIVAS Referring Unavailable MEGA RIVAS Primary Care Unavailable MEGA RIVAS Attending Unavailable MEGA RIVAS Referring Unavailable MEGA RIVAS Primary Care Unavailable MEGA RIVAS Attending Unavailable MEGA RIVAS Referring Unavailable MEGA RIVAS Primary Care Unavailable Mega Rivas MD Primary Care Provider Mega Rivas MD Unavailable Mega Rivas MD Primary Care Provider [phone] MEGA RIVAS Primary Care Unavailable TESTRAKIRILL GEORGE Referring Unavailable TESTRADORIS, KIRILL Referring Unavailable MEGA RIVAS Primary Care Unavailable TESTANDREIA, KIRILL Attending Unavailable MEGA RIVAS Primary Care Unavailable Mega Rivas MD Unavailable MEGA RIVAS Primary Care Unavailable MEGA RIVAS Attending Unavailable MEGA RIVAS Referring Unavailable MEGA RIVAS Primary Care Unavailable MEGA RIVAS Attending Unavailable MEGA RIVAS Primary Care Unavailable RIVAS, MEGA O Attending Unavailable RIVAS, MEGA O Referring Unavailable RIVAS, MEGA O Primary Care Unavailable RIVAS, MEGA O Attending Unavailable RIVAS, MEGA O Primary Care Unavailable RIVAS, MEGA O Attending Unavailable RIVAS, MEGA O Referring Unavailable RIVAS, MEGA O Primary Care Unavailable BRIDGETTE MARILIA Anderson Attending Unavailable RIVAS, MEGA O Referring Unavailable RIVAS, MEGA O Primary Care Unavailable MARILIA YA Attending Unavailable MARILIA YA Referring Unavailable RIVAS, MEGA O Primary Care Unavailable RIVAS, MEGA O Referring Unavailable RIVAS, MEGA O Primary Care Unavailable Allergies Allergy Classification Reported Allergen(s) Allergy Type Date of Onset Reaction(s) Facility (20 sources) Codeine; Translations: [codeine] Drug Allergy 06-17-2017 GI Upset, Diarrhea [facility] Medications Current Medications Medication Drug Class(es) Dates Sig (Normalized) Sig (Original) acyclovir 400 mg oral tablet (15 sources) Herpesvirus Nucleoside Analog DNA Polymerase Inhibitor, Herpes Simplex Virus Nucleoside Analog DNA Polymerase Inhibitor, Herpes Zoster Virus Nucleoside Analog DNA Polymerase Inhibitor Start: 09-30-2023 take 1 tablet by mouth three times daily as needed acyclovir (Zovirax) 400 mg tablet Indications: Recurrent cold sores Take 1 tablet (400 mg) by mouth 3 times a day. PRN 30 tablet 1 09/30/2023 Active Start: 04-20-2019 take 1 tablet by caleb th three times daily as needed acyclovir (Zovirax) 400 mg tablet Take 1 tablet (400 mg) by mouth 3 times a day. PRN 0 04/20/2019 Active ASCORBIC ACID, VITAMIN C, ORAL (6 sources) take 1 tablet by caleb th once daily ASCORBIC ACID, VITAMIN C, ORAL Take 1 tablet by mouth once daily. Active take 1 tablet by mouth once franklin y ASCORBIC ACID, VITAMIN C, ORAL Take 1 tablet by mouth once daily. 0 Active azithromycin 250 mg oral tablet (1 source) Macrolide Antimicrobial Start: 09-16-2023 End: 09-21-2023 azithromycin (Zithromax) 250 mg tablet Indications: Acute bronchitis, unspecified organism Take 2 tablets (500 mg) by mouth once daily for 1 day, THEN 1 tablet (250 mg) once daily for 4 days. Take 2 tabs (500 mg) by mouth today, than 1 daily for 4 days.. 6 tablet 0 09/16/2023 09/21/2023 Active Biotin (5 sources) End: 07-18-2023 take 1 tablet by mouth once daily BIOTIN ORAL Take 1 tablet by mouth once daily. 0 07/18/2023 Discontinued (Therapy completed) take 1 tablet by mouth once rfanklin y BIOTIN ORAL Take 1 tablet by mouth once daily. 0 Active BIOTIN ORAL Take by mouth. 0 Active Comment on above: Take by mouth. collagen, hydrolysate, bovin e, (COLLAGEN, HYDR, BOVINE,, BULK, MISC) (6 sources) collagen, hydrol ysate, bovine, (COLLAGEN, HYDR, BOVINE,, BULK, MISC) 1 tablet once daily. Active collagen, hydrol ysate, bovine, (COLLAGEN, HYDR, BOVINE,, BULK, MISC) 1 tablet once daily. 0 Active magnesium oxide 400 mg oral tablet (17 sources) Start: 07-18-2023 take 1 tablet by mouth once daily magnesium oxide (Mag-Ox) 400 mg (241.3 mg magnesium) tablet Indications: Medication management Take 1 tablet (400 mg) by mouth once daily. 30 tablet 11 07/18/2023 Active Start: 12-30-2020 End: 07-18-2023 take 1 tablet by mouth twice daily magnesium oxide (Mag-Ox) 400 mg (241.3 mg magnesium) tablet Take 1 tablet (400 mg) by mouth twice a day. 0 12/30/2020 07/18/2023 Discontinued (Reorder) Start: 12-30-2020 take 1 tablet by caleb th twice daily magnesium oxide (MAG-OX) 400 mg (241.3 mg magnesium) tablet Indications: Chronic migraine Take 1 tablet by mouth twice daily. 60 tablet 5 12/30/2020 Active Start: 12-30-2020 take 1 tablet by caleb th twice daily Magnesium Oxide 400 (241.3 Mg) MG TABS TAKE 1 TABLET BY MOUTH TWICE DAILY Quantity: 0 Refills: 0 Ordered: 26-Jan-2021 DO Start : 30-Dec-2020 Active Comment on above: Take 1 tablet by caleb th twice daily. MULTIVITAMIN ORAL (8 sources) take 1 tablet by mouth once daily MULTIVITAMIN ORAL Take 1 tablet by mouth once daily. Active take 1 tablet by mouth once franklin y MULTIVITAMIN ORAL Take 1 tablet by mouth once daily. 0 Active MULTIVITAMIN ORA L Take by mouth. 0 Active Comment on above: Take by mouth. phentermine hydrochloride 37.5 mg oral capsule (6 sources) Sympathomimetic Amine Anorectic Start: 2023 End: 2023 take 33-33.9 capsules by mouth once daily before mealtime phentermine 37.5 mg capsule Indications: Class 1 obesity due to excess calories with serious comorbidity and body mass index (BMI) of 33.0 to 33.9 in adult , Medication management Take 1 capsule (37.5 mg) by mouth once daily in the morning. Take before meals. 30 capsule 09/16/2023 11/15/2023 Discontinued (Med List Cleanup) prochlorperazine 10 mg oral tablet (13 sources) Phenothiazine Start: 2020 End: 2023 take 1 tablet by mouth every twelve hours for nausea prochlorperazine (Compazine) 10 mg tablet Take 1 tablet (10 mg) by mouth every 12 hours if needed for nausea. 0 12/30/2020 07/18/2023 Discontinued (Therapy completed) Start: 12-30-2020 take 1 tablet by caleb th twice daily as needed prochlorperazine (COMPAZINE) 10 mg tablet Indications: Chronic migraine Take 1 tablet by mouth twice daily as needed. 24 tablet 5 12/30/2020 Active Comment on above: Take 1 tablet by caleb th twice daily as needed. riboflavin 100 mg oral tablet (5 sources) Start: 12-31-19 21 End: 07-18-19 24 take 1 tablet by mouth once daily riboflavin (vitamin B2) 100 mg tablet tablet Take 1 tablet (100 mg) by mouth once daily. 0 12/30/2020 07/18/2023 Discontinued (Therapy completed) Comment on above: Take 1 tablet by caleb th once daily. terbinafine 250 mg oral tablet (3 sources) Allylamine Antifungal Start: 11-16-19 23 End: 05-27-20 23 take 1 tablet by mouth once daily terbinafine (LamISIL) 250 mg tablet Take 1 tablet (250 mg) by mouth once daily. 0 11/15/2022 05/27/2023 Discontinued (Therapy completed) Comment on above: Take 1 tablet by caleb th once daily. tirzepatide (Mounjaro) 2.5 mg/0.5 mL pen injector (1 source) Start: 05-28-20 tirzepatide (Mounjaro) 2.5 mg/0.5 mL pen injector Indications: Class 2 severe obesity due to excess calories with serious comorbidity and body mass index (BMI) of 35.0 to 35.9 in adult (CMS/HCC) Inject 2.5 mg under the skin 1 (one) time per week. 2 mL 1 05/28/2023 Active topiramate 100 mg oral tablet (16 sources) Start: 12-31-19 21 take 1 tablet by mouth once daily at bedtime topiramate (Topamax) 100 mg tablet Take 1 tablet (100 mg) by mouth once daily at bedtime. 0 04/28/2021 Active Comment on above: Take 1 tablet by caleb th daily at bedtime. 24 hr venlafaxine 75 mg extended release oral capsule (5 sources) Serotonin and Norepinephrine Reuptake Inhibitor Start: 05-24-20 take 1 capsule by mouth once daily venlafaxine XR (Effexor-XR) 75 mg 24 hr capsule Take 1 capsule (75 mg) by mouth once daily. 05/24/2023 Active Completed/Discontinued Medications Medication Drug Class(es) Dates Sig (Normalized) Sig (Original) Ascorbic Acid (2 sources) Vitamin C ascorbic acid (VITAMIN C ORAL) Take by mouth. 0 Active Comment on above: Take by mouth. aspirin/acetaminophen /caffeine (EXCEDRIN MIGRAINE ORAL) (2 sources) aspirin/acetamin op hen/caffeine (EXCEDRIN MIGRAINE ORAL) Take by mouth. 0 Active Comment on above: Take by mouth. Collagen (2 sources) COLLAGEN MISC ergocalciferol 1.25 mg oral capsule (7 sources) Provitamin D2 Compound Start: 11-07-2021 End: 07-18-2023 take 1 capsule by mouth every week Vitamin D (Ergocalciferol) 1.25 MG (73743 UT) Oral Capsule TAKE 1 CAPSULE WEEKLY. Quantity: 13 Refills: 3 Ordered: 11-May-2022 Mega Rivas MD Start : 07-Nov-2021 Active FLUoxetine 40 mg oral capsule (12 sources) Serotonin Reuptake Inhibitor Start: 08-26-2020 End: 05-27-2023 take 1 capsule by mouth once daily FLUoxetine HCl - 40 MG Oral Capsule TAKE 1 CAPSULE Daily Quantity: 90 Refills: 3 Ordered: 20-Oct-2021 Mega Rivas MD Start : 26-Aug-2020 Active Comment on above: Take 40 mg by mouth once daily. pantoprazole 40 mg delayed release oral tablet (17 sources) Proton Pump Inhibitor Start: 04-20-2019 take 1 tablet by mouth once daily Pantoprazole Sodium 40 MG Oral Tablet Delayed Release TAKE 1 TABLET DAILY. Quantity: 90 Refills: 3 Ordered: 11-May-2022 Mega Rivas MD Start : 20-Apr-2019 Active pantoprazole (HI OTONIX) 40 mg injection Inject intravenously DAILY (6 AM). 0 Active Comment on above: Inject intravenously DAILY (6 AM). semaglutide 0.25 mg or 0.5 mg (2 mg/3 mL) pen injector (2 sources) Start: End: inject 0.25 mg by subcutaneous injection every week, then inject 0.5 mg by subcutaneous injection every week semaglutide 0.25 mg or 0.5 mg (2 mg/3 mL) pen injector Indications: Class 2 severe obesity due to excess calories with serious comorbidity and body mass index (BMI) of 35.0 to 35.9 in adult (CMS/[facility]) Inject 0.25 mg under the skin 1 (one) time per week for 14 days, THEN 0.5 mg 1 (one) time per week. 9 mL 0 08/09/2023 09/16/2023 Discontinued (Other) Start: 08-09-2023 End: 11-07-2023 inject 0.25 mg by subcutaneous injection every week, then inject 0.5 mg by subcutaneous injection every week semaglutide 0.25 mg or 0.5 mg (2 mg/3 mL) pen injector Indications: Class 2 severe obesity due to excess calories with serious comorbidity and body mass index (BMI) of 35.0 to 35.9 in adult (CMS/HCC) Inject 0.25 mg under the skin 1 (one) time per week for 14 days, THEN 0.5 mg 1 (one) time per week. 9 mL 0 08/09/2023 11/07/2023 Active SUMAtriptan 50 mg oral tablet (9 sources) Serotonin-1b and Serotonin-1d Receptor Agonist Start: 04-20-2019 take 1 tablet by mouth every two hours SUMAtriptan Succinate 50 MG Oral Tablet TAKE 1 TABLET FOR MIGRAINE RELIEF. MAY REPEAT EVERY 2 HOURS. MAX 200MG/DAY. Quantity: 0 Refills: 0 Ordered: 20-Apr-2019 DO Start : 20-Apr-2019 Active Problems Active Problems Problem Classification Problem Date Documented Da te Episodic/Chronic Anxiety disorders (20 sources) Posttraumatic stress disorder; Translations: [Posttraumatic stress disorder] Onset: 3 11-16-2022 Chronic Contraceptive and procreative management (20 sources) Patient encounter status; Translations: [Unspecified contraceptive management] Resolved: 1 08-19-2023 Episodic Endometriosis (18 sources) Endometriosis (clinical); Translations: [Endometriosis, site unspecified] Onset: 3 11-16-2022 Chronic Esophageal disorders (20 sources) Gastroesophageal reflux disease; Translations: [Esophageal reflux] Onset: 3 11-16-2022 Chronic Gastrointestinal hemorrhage (4 sources) Hemorrhage of anus and rectum; Translations: [Hemorrhage of anus and rectum] Onset: 4 Episodic Genitourinary congenital anomalies (14 sources) Embryonic cyst of ovary; Translations: [Other and unspecified ovarian cyst] Onset: 3 11-16-2022 Chronic Genitourinary symptoms and ill-defined conditions (9 sources) Female stress incontinence; Translations: [Stress incontinence (female) (male)] Onset: 3 05-27-2023 Chronic Headache; including migraine (20 sources) Migraine; Translations: [Migraine, unspecified, without mention of intractable migraine without mention of status migrainosus] Onset: 3 11-16-2022 Chronic Malaise and fatigue (15 sources) Chronic fatigue syndrome; Translations: [Chronic fatigue syndrome] Onset: 3 11-16-2022 Chronic Malaise and fatigue (9 sources) Malaise and fatigue; Translations: [Other malaise and fatigue] Episodic Mood disorders (20 sources) Moderate major depression ; Translations: [Major depressive affective disorder, single episode, moderate] Onset: 3 11-16-2022 Chronic Mycoses (2 sources) Onychomycosis; Translations: [Tinea unguium] Onset: 3 Episodic Nutritional deficiencies (20 sources) Vitamin D deficiency; Translations: [Unspecified vitamin D deficiency] Onset: 3 Chronic Other bone disease and musculoskeletal deformities (1 source) Costal chondritis; Translations: [Chondrocostal junction syndrome [Tietze]] 05-27-2023 Episodic Other connective tissue disease (1 source) Lateral epicondylitis of bilateral humerus; Translations: [Lateral epicondylitis, right elbow] Episodic Other gastrointestinal disorders (1 source) Abdominal bloating; Translations: [Abdominal distension (gaseous)] 11-15-2023 Episodic Other gastrointestinal disorders (2 sources) Abdominal distension (gaseous); Translations: [Abdominal distension (gaseous)] Onset: 4 Episodic Other non-traumatic joint disorders (19 sources) Multiple joint pain; Translations: [Pain in joint, multiple sites] Onset: 3 Episodic Other non-traumatic joint disorders (1 source) Hypermobility of joint; Translations: [Joint derangement, unspecified] Episodic Other nutritional; endocrine; and metabolic disorders (11 sources) Severe obesity; Translations: [Morbid obesity] Onset: 3 Chronic Other nutritional; endocrine; and metabolic disorders (3 sources) Obesity; Translations: [Obesity, unspecified] Onset: 3 11-16-2022 Chronic Other nutritional; endocrine; and metabolic disorders (8 sources) Obesity caused by energy imbalance; Translations: [Other obesity due to excess calories] Onset: 3 08-19-2023 Chronic Other nutritional; endocrine; and metabolic disorders (2 sources) Other obesity due to excess calories; Translations: [Other obesity due to excess calories] Onset: 4 Chronic Other nutritional; endocrine; and metabolic disorders (2 sources) Body mass index (BMI) 34.0-34.9, adult; Translations: [Body mass index (BMI) 34.0-34.9, adult] Onset: 4 Chronic Other nutritional; endocrine; and metabolic disorders (2 sources) Body mass index (BMI) 33.0-33.9, adult; Translations: [Body mass index (BMI) 33.0-33.9, adult] Onset: 4 Chronic Other nutritional; endocrine; and metabolic disorders (2 sources) Morbid (severe) obesity due to excess calories; Translations: [Morbid (severe) obesity due to excess calories (CMS/HCC)] Onset: 3 Chronic Other nutritional; endocrine; and metabolic disorders (2 sources) Body mass index (BMI) 35.0-35.9, adult; Translations: [Body mass index (BMI) 35.0-35.9, adult] Onset: 3 Chronic Other screening for suspected conditions (not mental disorders or infectious disease) (2 sources) Encounter for screening for cardiovascular disorders; Translations: [Encounter for screening for cardiovascular disorders] Onset: 4 Episodic Unclassified (2 sources) 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; Translations: [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] Onset: 3 Past or Other Problems Problem Classification Problem Date Documented Da te Episodic/Chronic Acute bronchitis (3 sources) Acute bronchitis; Translations: [Acute bronchitis, unspecified] Onset: 09-16-2023 09-16-2023 Episodic Diseases of white blood cells (11 sources) Neutropenia; Translations: [Neutropenia, unspecified] Onset: 11-16-2022 Resolved: 11-16-2022 11-16-2022 Chronic Nonmalignant breast conditions (8 sources) Hypertrophy of breast; Translations: [Hypertrophy of breast] Onset: 02-21-2005 Resolved: 05-27-2023 02-21-2005 Episodic Other aftercare (2 sources) Other fpc (current) drug therapy; Translations: [Other fpc (current) drug therapy] Onset: 07-18-2023 Episodic Other bone disease and musculoskeletal deformities (2 sources) Chondrocostal junction syndrome [Tietze]; Translations: [Chondrocostal junction syndrome (tietze)] Onset: 05-27-2023 Episodic Other connective tissue disease (20 sources) Fibromyalgia; Translations: [Myalgia and myositis, unspecified] Onset: 11-16-2022 Episodic Other connective tissue disease (7 sources) Tendinitis of left elbow; Translations: [Other synovitis and tenosynovitis] Onset: 11-16-2022 Resolved: 11-16-2022 11-16-2022 Episodic Other connective tissue disease (2 sources) Fibromyalgia; Translations: [Fibromyalgia] Onset: 11-16-2022 Episodic Other female genital disorders (8 sources) H/O: abnormal uterine bleeding; Translations: [Personal history of other genital system and obstetric disorders] Resolved: 08-26-2020 Episodic Other non-traumatic joint disorders (5 sources) Pain in right shoulder; Translations: [Pain in joint, shoulder region] Onset: 05-27-2023 05-27-2023 Episodic Other non-traumatic joint disorders (4 sources) Pain in unspecified joint; Translations: [Pain in unspecified joint] Onset: 11-16-2022 Episodic Other nutritional; endocrine; and metabolic disorders (9 sources) Body mass index 30+ - obesity; Translations: [Body Mass Index 34.0-34.9, adult] Resolved: 08-26-2020 Chronic Sprains and strains (3 sources) Strain of muscle(s) and tendon(s) of the rotator cuff of right shoulder, initial encounter; Translations: [Rotator cuff (capsule) sprain] Onset: 05-27-2023 05-27-2023 Episodic Unclassified (2 sources) Patient encounter status; Translations: [Contraceptive management] Unclassified (6 sources) Onset: 11-16-2022 11-16-2022 Unclassified (2 sources) Myalgic 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/ch ronic fatigue syndrome; Translations: [Myalgic 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/ch ronic fatigue syndrome] Onset: 05-27-2023 Viral infection (20 sources) Recurrent herpes simplex labialis; Translations: [Herpes simplex without mention of complication] Onset: 11-16-2022 11-16-2022 Episodic NEGATED: Highlighted row has not occurred!Residual codes; unclassified (3 sources) Disease Episodic Results Test Name Value Interpretation Reference Range Facility COLONOSCOPYon 02-28-2024 Colonoscopy Table formatting fro m the original result was not included. Impression Normal. Protruding hemorrhoids Findings Normal Left anterior external protruding hemorrhoids observed during digital rectal exam; no bleeding was identified Recommendation Repeat colonoscopy in 3 years, due: 02/27/2027 Follow up with PCP Indication Rectal bleeding Staff Staff Role No Staff Documented Medications midazolam PF (Versed) injection 2.5 mg meperidine PF (Demerol) injection 50 mg glucagon (Glucagen) injection 1 mg (Totals for administrations occurring from 1229 to 1259 on 02/28/24) Preprocedure A history and physical has been performed, and patient medication allergies have been reviewed. The patient's tolerance of previous anesthesia has been reviewed. The risks and benefits of the procedure and the sedation options and risks were discussed with the patient and patient's partner. All questions were answered and informed consent obtained. Details of the Procedure The patient underwent moderate sedation, which was administered by the procedural nurse. The patient's blood pressure, ECG, ETCO2, heart rate, level of consciousness, oxygen and respirations were monitored throughout the procedure. A digital rectal exam was performed. The scope was introduced through the anus and advanced to the terminal ileum. Retroflexion was performed in the rectum. The quality of bowel preparation was evaluated using the [place] Bowel Preparation Scale with scores of: right colon = 3, transverse colon = 3, left colon = 3. The total BBPS score was 9. Bowel prep was adequate. The patient experienced no blood loss. The procedure was not difficult. The patient tolerated the procedure well. There were no apparent adverse events. Events Procedure Events Event Event Time ENDO SCOPE IN TIME 02/28/2024 12:43 PM ENDO CECUM REACHED 02/28/2024 12:47 PM ENDO SCOPE OUT TIME 02/28/2024 12:58 PM Specimens No specimens collected Procedure Location [address] [id number] Referring Provider Marilia Ya DO Procedure Provider Marilia Ya DO Normal [facility] Comment on above: Order Comment: 02/27 DRUG SCREEN,URINEon 07-18-19 Amphetamines Screen Ql (U) Negative Normal Presumptive Negative [facility] Comment on above: Order Comment: Drug screen results are presumptive and should not be used to assess compliance with prescribed medication. Contact the performing [facility] [[email or web address]] laboratory to add-on definitive confirmatory testing if clinically indicated. Toxicology screening results are reported qualitatively. The concentration must ???be greater than or equal to the cutoff to be reported as positive. The concentration at which the screening test can detect an individual drug or metabolite varies. The absence of expected drug(s) and/or drug metabolite(s) may indicate non-compliance, inappropriate timing of specimen collection relative to drug administration, poor drug absorption, diluted/adulterated urine, or limitations of testing. For medical purposes only; not valid for forensic use. Interpretive questions should be directed to the laboratory medical directors. Result Comment: CUTO FF LEVEL: 500 NG/ML Cross-reactivity has been reported with high concentrations of the following drugs: buproprion, chloroquine, chlorpromazine, ephedrine, mephentermine, fenfluramine, phentermine, phenylpropanolamine, pseudoephedrine, and propranolol. Performed By: #### D RUG3 #### KESHAV WALKER ([id number]) [facility] ([facility]) [address] [place] [address] Barbiturates Screen Ql (U) Negative Normal Presumptive Negative [facility] Comment on above: Order Comment: Drug screen results are presumptive and should not be used to assess compliance with prescribed medication. Contact the performing [facility] [[email or web address]] laboratory to add-on definitive confirmatory testing if clinically indicated. Toxicology screening results are reported qualitatively. The concentration must ???be greater than or equal to the cutoff to be reported as positive. The concentration at which the screening test can detect an individual drug or metabolite varies. The absence of expected drug(s) and/or drug metabolite(s) may indicate non-compliance, inappropriate timing of specimen collection relative to drug administration, poor drug absorption, diluted/adulterated urine, or limitations of testing. For medical purposes only; not valid for forensic use. Interpretive questions should be directed to the laboratory medical directors. Result Comment: CUTO FF LEVEL: 200 NG/ML Performed By: #### D RUG3 #### KESHAV WALKER ([id number]) [facility] ([facility]) [address] [place] [address] Benzodiazepines Ql (U) Negative Normal Presumptive Negative [facility] Comment on above: Order Comment: Drug screen results are presumptive and should not be used to assess compliance with prescribed medication. Contact the performing [facility] [[email or web address]] laboratory to add-on definitive confirmatory testing if clinically indicated. Toxicology screening results are reported qualitatively. The concentration must ???be greater than or equal to the cutoff to be reported as positive. The concentration at which the screening test can detect an individual drug or metabolite varies. The absence of expected drug(s) and/or drug metabolite(s) may indicate non-compliance, inappropriate timing of specimen collection relative to drug administration, poor drug absorption, diluted/adulterated urine, or limitations of testing. For medical purposes only; not valid for forensic use. Interpretive questions should be directed to the laboratory medical directors. Result Comment: CUTO FF LEVEL: 200 NG/ML Performed By: #### D RUG3 #### KESHAV WALKER ([id number]) [facility] ([facility]) [address] [place] [address] Benzoylecgonine Screen Ql (U) Negative Normal Presumptive Negative [facility] Ambulatory Comment on above: Order Comment: Drug screen results are presumptive and should not be used to assess compliance with prescribed medication. Contact the performing [facility] [email or web address]] laboratory to add-on definitive confirmatory testing if clinically indicated. Toxicology screening results are reported qualitatively. The concentration must ???be greater than or equal to the cutoff to be reported as positive. The concentration at which the screening test can detect an individual drug or metabolite varies. The absence of expected drug(s) and/or drug metabolite(s) may indicate non-compliance, inappropriate timing of specimen collection relative to drug administration, poor drug absorption, diluted/adulterated urine, or limitations of testing. For medical purposes only; not valid for forensic use. Interpretive questions should be directed to the laboratory medical directors. Result Comment: CUTO FF LEVEL: 150 NG/ML Performed By: #### D RUG3 #### KESHAV WALKER ([id number]) [facility] ([facility]) [address] [place] [address] Cannabinoids Screen Ql (U) Negative Normal Presumptive Negative [facility] Ambulatory Comment on above: Order Comment: Drug screen results are presumptive and should not be used to assess compliance with prescribed medication. Contact the performing [facility] [email or web address]] laboratory to add-on definitive confirmatory testing if clinically indicated. Toxicology screening results are reported qualitatively. The concentration must ???be greater than or equal to the cutoff to be reported as positive. The concentration at which the screening test can detect an individual drug or metabolite varies. The absence of expected drug(s) and/or drug metabolite(s) may indicate non-compliance, inappropriate timing of specimen collection relative to drug administration, poor drug absorption, diluted/adulterated urine, or limitations of testing. For medical purposes only; not valid for forensic use. Interpretive questions should be directed to the laboratory medical directors. Result Comment: CUTO FF LEVEL: 50 NG/ML Performed By: #### D RUG3 #### KESHAV WALKER ([id number]) [facility] ([facility]) [address] [place] [address] fentaNYL+Norfentan yl Screen Ql (U) Negative Normal Presumptive Negative [facility] Ambulatory Comment on above: Order Comment: Drug screen results are presumptive and should not be used to assess compliance with prescribed medication. Contact the performing [facility] [email or web address]] laboratory to add-on definitive confirmatory testing if clinically indicated. Toxicology screening results are reported qualitatively. The concentration must ???be greater than or equal to the cutoff to be reported as positive. The concentration at which the screening test can detect an individual drug or metabolite varies. The absence of expected drug(s) and/or drug metabolite(s) may indicate non-compliance, inappropriate timing of specimen collection relative to drug administration, poor drug absorption, diluted/adulterated urine, or limitations of testing. For medical purposes only; not valid for forensic use. Interpretive questions should be directed to the laboratory medical directors. Result Comment: CUTO FF LEVEL: 5 NG/ML Performed By: #### D RUG3 #### KESHAV WALKER ([id number]) [facility] ([facility]) [address] [place] [address] Opiates Screen Ql (U) Negative Normal Presumptive Negative [facility] Ambulatory Comment on above: Order Comment: Drug screen results are presumptive and should not be used to assess compliance with prescribed medication. Contact the performing [facility] [email or web address]] laboratory to add-on definitive confirmatory testing if clinically indicated. Toxicology screening results are reported qualitatively. The concentration must ???be greater than or equal to the cutoff to be reported as positive. The concentration at which the screening test can detect an individual drug or metabolite varies. The absence of expected drug(s) and/or drug metabolite(s) may indicate non-compliance, inappropriate timing of specimen collection relative to drug administration, poor drug absorption, diluted/adulterated urine, or limitations of testing. For medical purposes only; not valid for forensic use. Interpretive questions should be directed to the laboratory medical directors. Result Comment: CUTO FF LEVEL: 300 NG/ML The opiate screen does not detect fentanyl, meperidine, or tramadol. Oxycodone is not consistently detected (refer to Oxycodone Screen, Urine result). Performed By: #### D RUG3 #### KESHAV WALKER ([id number]) [facility] ([facility]) [address] [place] [address] oxyCODONE+oxyMORph one Screen Ql (U) Negative Normal Presumptive Negative [facility] Ambulatory Comment on above: Order Comment: Drug screen results are presumptive and should not be used to assess compliance with prescribed medication. Contact the performing [facility] [email or web address]] laboratory to add-on definitive confirmatory testing if clinically indicated. Toxicology screening results are reported qualitatively. The concentration must ???be greater than or equal to the cutoff to be reported as positive. The concentration at which the screening test can detect an individual drug or metabolite varies. The absence of expected drug(s) and/or drug metabolite(s) may indicate non-compliance, inappropriate timing of specimen collection relative to drug administration, poor drug absorption, diluted/adulterated urine, or limitations of testing. For medical purposes only; not valid for forensic use. Interpretive questions should be directed to the laboratory medical directors. Result Comment: CUTO FF LEVEL: 100 NG/ML This test will accurately detect both oxycodone and oxymorphone. Performed By: #### D RUG3 #### KESHAV WALKER ([id number]) [facility] ([facility]) [address] [place] [address] Phencyclidine Ql (U) Negative Normal Presumptive Negative [facility] Ambulatory Comment on above: Order Comment: Drug screen results are presumptive and should not be used to assess compliance with prescribed medication. Contact the performing [facility] [email or web address]] laboratory to add-on definitive confirmatory testing if clinically indicated. Toxicology screening results are reported qualitatively. The concentration must ???be greater than or equal to the cutoff to be reported as positive. The concentration at which the screening test can detect an individual drug or metabolite varies. The absence of expected drug(s) and/or drug metabolite(s) may indicate non-compliance, inappropriate timing of specimen collection relative to drug administration, poor drug absorption, diluted/adulterated urine, or limitations of testing. For medical purposes only; not valid for forensic use. Interpretive questions should be directed to the laboratory medical directors. Result Comment: CUTO FF LEVEL: 25 NG/ML Cross-reactivity has been reported with dextromethorphan. Performed By: #### D RUG3 #### KESHAV WALKER ([id number]) [facility] ([facility]) [address] [place] [address] CBC panel Auto (Bld)on 05-27 Erythrocyte distribution width (RBC) [Ratio] 13.3 % Normal 11.5-14.5 [facility] Comment on above: Performed By: #### 5 8410-2 #### KESHAV WALKER ([id number]) [facility] ([facility]) [address] [place] [address] 63515 Hematocrit (Bld) [Volume fraction] 39.3 % Normal 36.0-46.0 [facility] Comment on above: Performed By: #### 5 8410-2 #### KESHAV WALKER ([id number]) [facility] ([facility]) [address] [place] [address] Hemoglobin (Bld) [Mass/Vol] 12.4 g/dL Normal 12.0-16.0 [facility] Comment on above: Performed By: #### 5 8410-2 #### KESHAV WALKER ([id number]) [facility] ([facility]) [address] [place], [place] [address] MCH (RBC) [Entitic mass] 30.0 pg Normal 26.0-34.0 [facility] Comment on above: Performed By: #### 5 8410-2 #### KESHAV WALKER ([id number]) [facility] ([facility]) [address] [place] [address] 00223 MCHC (RBC) [Mass/Vol] 31.6 g/dL Low 32.0-36.0 [facility] Comment on above: Performed By: #### 5 8410-2 #### KESHAV WALKER ([id number]) [facility] ([facility]) [address] [place] [address] 42683 MCV (RBC) [Entitic vol] 95 fL Normal 80-100 [facility] Comment on above: Performed By: #### 5 8410-2 #### KESHAV WALKER ([id number]) [facility] ([facility]) [address] [place] [address] 36283 Nucleated RBC/100 WBC (Bld) [Ratio] 0.0 /100 WBCs Normal 0.0-0.0 [facility] Comment on above: Performed By: #### 5 8410-2 #### KESHAV WALKER ([id number]) [facility] ([facility]) [address] [place] [address] 10352 Platelets (Bld) [#/Vol] 334 x10*3/uL Normal 150-450 [facility] Comment on above: Performed By: #### 5 8410-2 #### KESHAV WALKER ([id number]) [facility] ([facility]) [address] [place] [address] 85937 RBC (Bld) [#/Vol] 4.13 x10*6/uL Normal 4.00-5.20 [facility] Comment on above: Performed By: #### 5 8410-2 #### KESHAV WALKER ([id number]) [facility] ([facility]) [address] [place] [address] 71882 WBC (Bld) [#/Vol] 4.9 x10*3/uL Normal 4.4-11.3 [facility] Comment on above: Performed By: #### 5 8410-2 #### KESHAV WALKER ([id number]) [facility] ([facility]) [address] [place] [address] 66972 Calcitriolon 05-27-2023 1,25-dihydroxyvita min D3 [Mass/Vol] 92.3 pg/mL High 19.9-79.3 [facility] Comment on above: Result Comment: INTE RPRETIVE INFORMATION: Vitamin D, 1,25- Dihydroxy This test is primarily indicated during patient evaluation for hypercalcemia and renal failure. A normal result does not rule out Vitamin D deficiency. The recommended test for diagnosing Vitamin D deficiency is Vitamin D 25-hydroxy. Performed By: [employer] [address] [place] [address] Collection Advisor: Jcarlos Alas MD, PhD CLIA Number: [id number] Performed By: #### 1 649-3 #### KATYA QR [employer] DavidSRINATA) ([id number]) [address] [place] [address] Cobalaminson 05-27-2023 Cobalamin (Vitamin B12) [Mass/Vol] 264 pg/mL Normal 211-911 [facility] Comment on above: Performed By: #### 2 132-9 #### KESHAV WALKER ([id number]) [facility] ([facility]) [address] [place] [address] Comprehensive metabolic 2000 panelon 05-27-2023 Albumin BCP dye [Mass/Vol] 4.3 g/dL Normal 3.4-5.0 [facility] Comment on above: Performed By: #### 2 4323-8 #### KESHAV WALKER ([id number]) [facility] ([facility]) [address] [place], [place] [address] ALP [Catalytic activity/Vol] 55 U/L Normal 33-110 [facility] Comment on above: Performed By: #### 2 4323-8 #### KESHAV WALKER ([id number]) [facility] ([facility]) [address] [place] [address] 48059 ALT With P-5'-P [Catalytic activity/Vol] 20 U/L Normal 7-45 [facility] Comment on above: Result Comment: Maricarmen ents treated with Sulfasalazine may generate falsely decreased results for ALT. Performed By: #### 2 4323-8 #### KESHAV WALKER ([id number]) [facility] ([facility]) [address] [place] [address] 09688 Anion gap [Moles/Vol] 10 mmol/L Normal 10-20 [facility] Comment on above: Performed By: #### 2 4323-8 #### KESHAV WALKER ([id number]) [facility] ([facility]) [address] [place] [address] 84712 AST With P-5'-P [Catalytic activity/Vol] 20 U/L Normal 9-39 [facility] Comment on above: Performed By: #### 2 4323-8 #### KESHAV WALKER ([id number]) [facility] ([facility]) [address] [place] [address] 83618 Bilirubin [Mass/Vol] 0.7 mg/dL Normal 0.0-1.2 [facility] Comment on above: Performed By: #### 2 4323-8 #### KESHAV WALKER ([id number]) [facility] ([facility]) [facility] [place] [address] Calcium [Mass/Vol] 9.3 mg/dL Normal 8.6-10.3 [facility] Comment on above: Performed By: #### 2 4323-8 #### KESHAV WALKER ([id number]) [facility] ([facility]) [address] [place] [address] 01507 Chloride [Moles/Vol] 104 mmol/L Normal 98-107 [facility] Comment on above: Performed By: #### 2 4323-8 #### KESHAV WALKER ([id number]) [facility] ([facility]) [address] [place] [address] 45627 CO2 [Moles/Vol] 28 mmol/L Normal 21-32 [facility] Comment on above: Performed By: #### 2 4323-8 #### KESHAV WALKER ([id number]) [facility] ([facility]) [address] [place] [address] 63803 Creatinine [Mass/Vol] 0.67 mg/dL Normal 0.50-1.05 [facility] Comment on above: Performed By: #### 2 4323-8 #### KESHAV WALKER ([id number]) [facility] ([facility]) [address] [place] [address] 42279 GFR/1.73 sq M.predicted MDRD (S/P/Bld) [Vol rate/Area] mL/min/{1.73_m2} Normal >60 [facility] Comment on above: Result Comment: Calc ulations of estimated GFR are performed using the 2020 CKD-EPI Study Refit equation without the race variable for the IDMS-Traceable creatinine methods. https://jasn.asnjournals.org/content//ASN.718777766 8 Performed By: #### 2 4323-8 #### KESHAV WALKER ([id number]) [facility] ([facility]) [address] [place] [address] 41898 Glucose [Mass/Vol] 87 mg/dL Normal 74-99 [facility] Comment on above: Performed By: #### 2 4323-8 #### KESHAV WALKER ([id number]) [facility] ([facility]) [address] [place] [address] 97854 Potassium [Moles/Vol] 3.7 mmol/L Normal 3.5-5.3 [facility] Comment on above: Performed By: #### 2 4323-8 #### KESHAV WALKER ([id number]) [facility] ([facility]) [address] [place] [address] 57388 Protein [Mass/Vol] 7.2 g/dL Normal 6.4-8.2 [facility] Comment on above: Performed By: #### 2 4323-8 #### KESHAV WALKER ([id number]) [facility] ([facility]) [address] [place] [address] 03286 Sodium [Moles/Vol] 138 mmol/L Normal 136-145 [facility] Comment on above: Performed By: #### 2 4323-8 #### KESHAV WALKER ([id number]) [facility] ([facility]) [address] [place] [address] 05707 Urea nitrogen [Mass/Vol] 16 mg/dL Normal 6-23 [facility] Comment on above: Performed By: #### 2 4323-8 #### KESHAV WALKER ([id number]) [facility] ([facility]) [address] [place] [address] 84495 Magnesiumon 05-27-2023 Magnesium [Mass/Vol] 2.33 mg/dL Normal 1.60-2.40 [facility] Comment on above: Performed By: #### 1 9123-9 #### KESHAV WALKER ([id number]) [facility] ([facility]) [address] [place] [address] 73383 TSH WITH REFLEX TO FREE T4 I F ABNORMALon 05-27-2023 TSH Qn 2.35 m[IU]/L Normal 0.44-3.98 [facility] Comment on above: Order Comment: TSH t esting is performed using different testing methodology at [facility] than at other [facility]. Direct result comparisons should only be made within the same method. Performed By: #### T HYDS #### PARR AARON ([id number]) [facility] ([facility]) [address] [place] [address] XR SHOULDER RIGHT 2+ VIEWSon 05-27-2023 XR SHOULDER RIGHT 2+ VIEWS Interpreted By: Carele Bowman, STUDY: Right shoulder, 5 views. INDICATION: Signs/Symptoms:fall on shoulder. COMPARISON: None. ACCESSION NUMBER(S): [id number] ORDERING CLINICIAN: MEGA RIVAS FINDINGS: No acute fracture or malalignment. No significant degenerative changes. Soft tissues are unremarkable. IMPRESSION: 1. Unremarkable right shoulder radiographs. MACRO: None. Signed by: Carlee Bowman 05/29/2023 6:02 PM Dictation workstation: [id number] [facility] Hepatic function 2000 panelo n 01-11-2023 Albumin [Mass/Vol] 4.3 g/dL Normal 3.9-4.9 [facility] Comment on above: Order Comment: Specmya rivera Type: BLOOD SPECIMEN Ordering Facility: [facility] Address: [address] [address] Performed By: #### 2 4325-3 #### [facility] CLIA [id number] [address] [place] [address] [place] [facility] CLIA [id number] [address] [place] [address] [place] ALP [Catalytic activity/Vol] 58 U/L Normal 34-123 [facility] Comment on above: Order Comment: Wendi rivera Type: BLOOD SPECIMEN Ordering Facility: [facility] Address: [address] [address] Performed By: #### 2 4325-3 #### [facility] CLIA [id number] [address] [place] [address] [place] [facility] CLIA [id number] [address] [place] ALT [Catalytic activity/Vol] 21 U/L Normal 7-38 [facility] Comment on above: Order Comment: Speci men Type: BLOOD SPECIMEN Ordering Facility: [facility] Address: [address] Performed By: #### 2 4325-3 #### [facility] CLIA [id number] [address] [place] [address] [place] [facility] CLIA [id number] [address] [place] [address] [place] AST [Catalytic activity/Vol] 21 U/L Normal 13-35 [facility] Comment on above: Order Comment: Speci men Type: BLOOD SPECIMEN Ordering Facility: [facility] Address: [address] [place] [address] Performed By: #### 2 4325-3 #### [facility] CLIA [id number] [address] [place] [address] [place] [facility] CLIA [id number] [address] [place] [address] [place] Bilirubin [Mass/Vol] 0.5 mg/dL Normal 0.2-1.3 [facility] Comment on above: Order Comment: Speci men Type: BLOOD SPECIMEN Ordering Facility: [facility] Address: [address] [place], [place] [address] Performed By: #### 2 4325-3 #### [facility] CLIA [id number] [address] [place] [address] [place] [facility] CLIA [id number] [address] [place] [address] [place] Bilirubin.conjugat ed [Mass/Vol] mg/dL Normal <0.2 [facility] Comment on above: Order Comment: Speci men Type: BLOOD SPECIMEN Ordering Facility: [facility] Address: [address] Performed By: #### 2 4325-3 #### [facility] CLIA [id number] [address] [place] [address] [place] [facility] CLIA [id number] [address] [place] Protein [Mass/Vol] 6.9 g/dL Normal 6.3-8.0 [facility] Comment on above: Order Comment: Speci men Type: BLOOD SPECIMEN Ordering Facility: [facility] Address: [address] [address] Performed By: #### 2 4325-3 #### [facility] CLIA [id number] [address] [place] [facility] CLIA [id number] [address] [place] Hepatic function 2000 panelo n 11-16-2022 Albumin [Mass/Vol] 4.4 g/dL 3.9 - 4.9 g/dL [facility] ALP [Catalytic activity/Vol] 55 U/L 34 - 123 U/L [facility] ALT [Catalytic activity/Vol] 22 U/L 7 - 38 U/L [facility] AST [Catalytic activity/Vol] 21 U/L 13 - 35 U/L [facility] Bilirubin [Mass/Vol] 0.7 mg/dL 0.2 - 1.3 mg/dL [facility] Bilirubin.conjugat ed [Mass/Vol] <0.2 mg/dL [facility] Protein [Mass/Vol] 6.9 g/dL 6.3 - 8.0 g/dL [facility] CNOVon 11-15-2022 CNOV Office Visit (PODIWS ) -------- ENMA HAWLEY ([id number]) 1975 F Date Time Provider Department 11/15/22 1:15 PM KIRILL FAJARDO During your visit today, we recorded the following information about you: Inge MendozaSAMI 11/16/2022 10:25 PM Signed AMB ROOMING INTAKE FLOWSHEET DATA Patient presents with: Left Foot - New, Nail Fungus Right Foot - New, Nail Fungus Inge Mendoza LPN Kirill Fajardo, DPZoltan 11/16/2022 10:25 PM Signed Initial Podiatric Office Visit: Chief Complaint: This 47 year old female who presents with chief complaint:toenail fungus HPI Patient presents to clinic for evaluation of b/l feet. She complains of thick, discolored toenails of both feet. She has tried topical medication without success. She does complain of pain with any degree of pressure. Patient is here to discuss options for the toenails. PAIN EVALUATION No data found in the last 1 encounters. No results found for: HBA1C PCP: Mega Rivas MD, MD PAST MEDICAL HISTORY Diagnosis Date Anxiety Depression Fibromyalgia Insomnia Current Outpatient Medications Medication Sig pantoprazole (PROTONIX) 40 mg injection Inject intravenously DAILY (6 AM). aspirin/acetaminophen/ca ffeine (EXCEDRIN MIGRAINE ORAL) Take by mouth. MULTIVITAMIN ORAL Take by mouth. COLLAGEN MISC ascorbic acid (VITAMIN C ORAL) Take by mouth. BIOTIN ORAL Take by mouth. prochlorperazine (COMPAZINE) 10 mg tablet Take 1 tablet by mouth twice daily as needed. FLUoxetine HCl (PROZAC) 40 mg capsule Take 40 mg by mouth once daily. topiramate (TOPAMAX) 100 mg tablet Take 1 tablet by mouth daily at bedtime. magnesium oxide (MAG-OX) 400 mg (241.3 mg magnesium) tablet Take 1 tablet by mouth twice daily. riboflavin, vitamin B2, (VITAMIN B-2) 100 mg tab Take 1 tablet by mouth once daily. No current facility-administered medications for this visit. ALLERGIES Allergen Reactions Codeine GI Upset PAST SURGICAL HISTORY Procedure Laterality Date BREAST REDUCTION SECTION HX CHOLECYSTECTOMY FAMILY HISTORY Problem Relation Age of Onset Colon Cancer Mother Heart Attack Brother Social History Tobacco Use Smoking status: Never Smokeless tobacco: Never Substance Use Topics Alcohol use: No Drug use: No REVIEW OF SYSTEMS GENERAL: Negative for Malaise, significant weight loss, fever RESPIRATORY: Negative for cough, wheezing and shortness of breath CARDIOVASCULAR: Negative for chest pain, leg swelling and palpitations GI: Negative for abdominal discomfort, blood in stools or black stools and change in bowel habits : Negative for dysuria, frequency and incontinence MUSCULOSKELETAL: Negative for joint pain or swelling, back pain, and muscle pain. SKIN: Negative for lesions, rash, and itching. HEMATOLOGY/LYMPHOLOGY Negative for prolonged bleeding, bruising easily, and swollen nodes. ENDOCRINE: Negative for cold or heat intolerance, polyuria, polydipsia and goiter. NEURO: negative Physical Exam: Constitutional: Pt is a well developed 47 year old female who is alert, oriented and cooperative Eyes: Following during examination. No redness or drainage. Respiratory: RR normal and nonlabored. Even breathing. No evidence of distress or shortness of breath. Psychology: Patient is engaged during conversation. Normal affect and mood. Does not appear depressed or anxious during encounter. Vascular: Dorsalis pedis and posterior tibial pulses palpable as b/l Capillary Fill time < 5 seconds to digits 1-5 b/l Skin temperature warm to cool proximal to distal b/l Hair growth present to digits Neurological: intact light touch/epicritic sensation b/l intact protective sensation no significant neurological deficits Dermatological: Nails 1-5 b/l appear discolored yellow and dystrophic. Webspaces clean and dry 1-4 b/l. Skin appears well hydrated and supple. good color, texture, turgor. No open lesions present. No callosities present. Musculoskeletal/Orthopae dic: Foot type is neutral structurally AJ ROM is full with knee extended and flexed 1st MPJ is full when loaded and no pain or crepitus are noted with ROM. MTJ, STJ are full and free of pain and crepitus. +5/5 muscle strength dorsiflexion, plantarflexion, inversion, eversion b/l Radiographs: n/a ASSESSMENT: (B35.1) Onychomycosis (primary encounter diagnosis) PLAN: 1. History and physical examination performed. 2. Discussed discolored toenails of b/l feet. Discussed various etiolgies not limited to fungus, mold, yeast, trauma, aging of nails. In the event these are fungal, discussed various treatment options not limited to topical care which has low success, oral medication but need to check liver enzymes, laser vs removal. Patient may be intereseted in lamisil. Will check hepatic function panel. 3. Will call patient with results. Kirill Fajardo, (more content not included)... Normal [facility] Hepatic function 2000 panelo n 11-15-2022 Albumin [Mass/Vol] 4.4 g/dL Normal 3.9-4.9 [facility] Comment on above: Order Comment: Speci men Type: BLOOD SPECIMEN Ordering Facility: [facility] Address: [address] [place], [place] [id number] Performed By: #### 2 4325-3 #### [facility] CLIA [id number] [address] [place] [address] [place] [facility] CLIA [id number] [address] [place] [address] [place] ALP [Catalytic activity/Vol] 55 U/L Normal 34-123 [facility] Comment on above: Order Comment: Speci men Type: BLOOD SPECIMEN Ordering Facility: [facility] Address: [address] [place], [place] [id number] Performed By: #### 2 4325-3 #### [facility] CLIA [id number] [address] [place] [address] [place] [facility] CLIA [id number] [address] [place] [address] [place] ALT [Catalytic activity/Vol] 22 U/L Normal 7-38 [facility] Comment on above: Order Comment: Speci men Type: BLOOD SPECIMEN Ordering Facility: [facility] Address: [address] Performed By: #### 2 4325-3 #### [facility] CLIA [id number] [address] [place] [address] [place] [facility] CLIA [id number] [address] [place] [address] [place] AST [Catalytic activity/Vol] 21 U/L Normal 13-35 [facility] Comment on above: Order Comment: Speci men Type: BLOOD SPECIMEN Ordering Facility: [facility] Address: [address] [address] Performed By: #### 2 4325-3 #### [facility] CLIA [id number] [address] [place] [address] [place] [facility] CLIA [id number] [address] [place] [address] [place] Bilirubin [Mass/Vol] 0.7 mg/dL Normal 0.2-1.3 [facility] Comment on above: Order Comment: Speci men Type: BLOOD SPECIMEN Ordering Facility: [facility] Address: [address] [place] [address] Performed By: #### 2 4325-3 #### [facility] CLIA [id number] [address] [place] [address] [place] [facility] CLIA [id number] [facility] [place] [address] [place] Bilirubin.conjugat ed [Mass/Vol] mg/dL Normal <0.2 [facility] Comment on above: Order Comment: Speci men Type: BLOOD SPECIMEN Ordering Facility: [facility] Address: [address] [place] [address] Performed By: #### 2 4325-3 #### [facility] CLIA [id number] [address] [place] [address] [place] [facility] CLIA [id number] [address] [place] [address] [place] Protein [Mass/Vol] 6.9 g/dL Normal 6.3-8.0 [facility] Comment on above: Order Comment: Speci men Type: BLOOD SPECIMEN Ordering Facility: [facility] Address: [address] Performed By: #### 2 4325-3 #### [facility] CLIA [id number] [address] [place] [address] [place] [facility] CLIA [id number] [address] [place] [address] [place] CBC AND DIFFERENTIALon 05-25 % AUTOMATED IMMATURE GRAN 0.2 % Normal 0.0 - 0.9 [facility] Comment on above: Result Comment: Danielle ture Granulocyte Count (IG) includes promyelocytes, myelocytes and metamyelocytes but does not include bands. Percent differential counts (%) should be interpreted in the context of the absolute cell counts (cells/L). Performed By: #### C BCDF #### [address] [address] Basophils (Bld) [#/Vol] 0.02 10*3/uL Normal 0.00 - 0.10 [facility] Comment on above: Performed By: #### C BCDF #### [address] [address] Basophils/100 WBC (Bld) 0.4 % Normal 0.0 - 2.0 [facility] Comment on above: Performed By: #### C BCDF #### [address] [address] Eosinophils (Bld) [#/Vol] 0.16 10*3/uL Normal 0.00 - 0.70 [facility] Comment on above: Performed By: #### C BCDF #### [address] [address] Eosinophils/100 WBC (Bld) 3.2 % Normal 0.0 - 6.0 [facility] Comment on above: Performed By: #### C BCDF #### [address] [address] Erythrocyte distribution width (RBC) [Ratio] 13.1 % Normal 11.5 - 14.5 [facility] Comment on above: Performed By: #### C BCDF #### [address] [address] Hematocrit (Bld) [Volume fraction] 38.3 % Normal 36.0 - 46.0 [facility] Comment on above: Performed By: #### C BCDF #### [address] [address] Hemoglobin (Bld) [Mass/Vol] 12.4 g/dL Normal 12.0 - 16.0 [facility] Comment on above: Performed By: #### C BCDF #### [address] [address] Lymphocytes (Bld) [#/Vol] 1.86 10*3/uL Normal 1.20 - 4.80 [facility] Comment on above: Performed By: #### C BCDF #### [address] [address] Lymphocytes/100 WBC (Bld) 37.6 % Normal 13.0 - 44.0 [facility] Comment on above: Performed By: #### C BCDF #### [address] [address] MCHC (RBC) [Mass/Vol] 32.4 g/dL Normal 32.0 - 36.0 [facility] Comment on above: Performed By: #### C BCDF #### [address] [address] MCV (RBC) [Entitic vol] 93 fL Normal 80 - 100 [facility] Comment on above: Performed By: #### C BCDF #### [address] [address] Monocytes (Bld) [#/Vol] 0.40 10*3/uL Normal 0.10 - 1.00 [facility] Comment on above: Performed By: #### C BCDF #### [address] [address] Monocytes/100 WBC (Bld) 8.1 % Normal 2.0 - 10.0 [facility] Comment on above: Performed By: #### C BCDF #### [address] [address] Neutrophils (Bld) [#/Vol] 2.50 10*3/uL Normal 1.20 - 7.70 [facility] Comment on above: Result Comment: Perc ent differential counts (%) should be interpreted in the context of the absolute cell counts (cells/L). Performed By: #### C BCDF #### [address] [address] Neutrophils/100 WBC (Bld) 50.5 % Normal 40.0 - 80.0 [facility] Comment on above: Performed By: #### C BCDF #### [address] [address] Platelets (Bld) [#/Vol] 341 10*3/uL Normal 150 - 450 [facility] Comment on above: Performed By: #### C BCDF #### [address] [address] RBC 4.11 x10E12/L Normal 4.00 - 5.20 [facility] Comment on above: Performed By: #### C BCDF #### [address] [address] WBC (Bld) [#/Vol] 5.0 10*3/uL Normal 4.4 - 11.3 [facility] [place] Comment on above: Performed By: #### C BCDF #### [address] [address] COMPREHENSIVE PANELon 2021 Albumin [Mass/Vol] 4.3 g/dL Normal 3.4 - 5.0 [facility] [place] Comment on above: Performed By: #### C MP #### [address] [address] ALP [Catalytic activity/Vol] 57 U/L Normal 33 - 110 [facility] Comment on above: Performed By: #### C MP #### [address] [address] ALT [Catalytic activity/Vol] 29 U/L Normal 7 - 45 [facility] Comment on above: Result Comment: Maricarmen ents treated with Sulfasalazine may generate falsely decreased results for ALT. Performed By: #### C MP #### [address] [address] Anion gap [Moles/Vol] 11 mmol/L Normal 10 - 20 [facility] Comment on above: Performed By: #### C MP #### [address] [address] AST [Catalytic activity/Vol] 27 U/L Normal 9 - 39 [facility] Comment on above: Performed By: #### C MP #### [address] [address] Bilirubin [Mass/Vol] 1.0 mg/dL Normal 0.0 - 1.2 [facility] Comment on above: Performed By: #### C MP #### [address] [address] Calcium [Mass/Vol] 9.2 mg/dL Normal 8.6 - 10.3 [facility] [place] Comment on above: Performed By: #### C MP #### [address] [address] Chloride [Moles/Vol] 105 mmol/L Normal 98 - 107 [facility] Comment on above: Performed By: #### C MP #### [address] [address] Creatinine [Mass/Vol] 0.71 mg/dL Normal 0.50 - 1.05 [facility] Comment on above: Performed By: #### C MP #### [address] [address] eGFR FEMALE >90 Normal >90 [facility] Comment on above: Result Comment: CALC ULATIONS OF ESTIMATED GFR ARE PERFORMED USING THE 2020 CKD-EPI STUDY REFIT EQUATION WITHOUT THE RACE VARIABLE FOR THE IDMS-TRACEABLE CREATININE METHODS. https://jasn.asnjournals.org/content//ASN.093855232 8 Performed By: #### C MP #### [address] [address] Glucose [Mass/Vol] 92 mg/dL Normal 74 - 99 [facility] [place] Comment on above: Performed By: #### C MP #### [address] [address] HCO3 (Bld) [Moles/Vol] 27 mmol/L Normal 21 - 32 [facility] Comment on above: Performed By: #### C MP #### [address] [address] Potassium [Moles/Vol] 3.8 mmol/L Normal 3.5 - 5.3 [facility] Comment on above: Performed By: #### C MP #### [address] [address] Protein [Mass/Vol] 7.5 g/dL Normal 6.4 - 8.2 [facility] [place] Comment on above: Performed By: #### C MP #### [address] [address] Sodium [Moles/Vol] 139 mmol/L Normal 136 - 145 [facility] [place] Comment on above: Performed By: #### C MP #### [address] [address] Urea nitrogen [Mass/Vol] 13 mg/dL Normal 6 - 23 [facility] Comment on above: Performed By: #### C MP #### [address] [address] Complete Blood Count + Parisa mcnair 05-25-2022 Basophils/100 WBC (Bld) 0.4 % 0.0 - 2.0 [facility] Work Phone: [phone] Erythrocyte distribution width (RBC) [Ratio] 13.1 % See Below [facility] Work Phone: Comment on above: Reference Range: 11. 5 - 14.5 Hematocrit (Bld) [Volume fraction] 38.3 % See Below [facility] Work Phone: [phone] Comment on above: Reference Range: 36. 0 - 46.0 Hemoglobin (Bld) [Mass/Vol] 12.4 g/dL See Below [facility] Work Phone: Comment on above: Reference Range: 12. 0 - 16.0 Lymphocytes/100 WBC (Bld) 37.6 % See Below [facility] Work Phone: [phone] Comment on above: Reference Range: 13. 0 - 44.0 MCHC (RBC) [Mass/Vol] 32.4 g/dL See Below [facility] Work Phone: [phone] Comment on above: Reference Range: 32. 0 - 36.0 MCV (RBC) [Entitic vol] 93 fL 80 - 100 [facility] Work Phone: [phone] Monocytes/100 WBC (Bld) 8.1 % 2.0 - 10.0 [facility] Work Phone: [phone] Neutrophils/100 WBC (Bld) 50.5 % See Below [facility] Work Phone: [phone] Comment on above: Reference Range: 40. 0 - 80.0 Platelets (Bld) [#/Vol] 341 10*3/uL 150 - 450 [facility] Work Phone: [phone] RBC (Bld) [#/Vol] 4.11 {x10E12/L} See Below [facility] Work Phone: [phone] Comment on above: Reference Range: 4.0 0 - 5.20 WBC (Bld) [#/Vol] 5.0 10*3/uL 4.4 - 11.3 [facility] Work Phone: [phone] Complete Blood Count + Differential 0.02 {x10E9/L} See Below [facility] Work Phone: [phone] Comment on above: Reference Range: 0.0 0 - 0.10 Complete Blood Count + Differential 0.16 {x10E9/L} See Below [facility] Work Phone: [phone] Comment on above: Reference Range: 0.0 0 - 0.70 Complete Blood Count + Differential 0.40 {x10E9/L} See Below [facility] Work Phone: [phone] Comment on above: Reference Range: 0.1 0 - 1.00 Complete Blood Count + Differential 1.86 {x10E9/L} See Below [facility] Work Phone: Comment on above: Reference Range: 1.2 0 - 4.80 Complete Blood Count + Differential 2.50 {x10E9/L} See Below [facility] Work Phone: [phone] Comment on above: Reference Range: 1.2 0 - 7.70 Percent differential counts (%) should be interpreted in the context of the absolute cell counts (cells/L). Complete Blood Count + Differential 3.2 % 0.0 - 6.0 [facility] Work Phone: [phone] Complete Blood Count + Differential 0.2 % 0.0 - 0.9 [facility] Work Phone: Comment on above: Immature Granulocyte Count (IG) includes promyelocytes, myelocytes and metamyelocytes but does not include bands. Percent differential counts (%) should be interpreted in the context of the absolute cell counts (cells/L). FERRITINon 05-25-2022 FERRITIN 34 ug/L Normal 8 - 150 [facility] Comment on above: Performed By: #### F ERRI #### [address] [address] Ferritin, Serumon 05-25-2022 Ferritin [Mass/Vol] 34 ug/L 8 - 150 [facility] Work Phone: [phone] IRON + TIBCon 05-25-2022 % SATURATION 18 % Low 25 - 45 [facility] Comment on above: Performed By: #### I RONT #### [address] [address] Iron [Mass/Vol] 72 ug/dL Normal 35 - 150 [facility] Comment on above: Performed By: #### I RONT #### [address] [address] TIBC 399 ug/dL Normal 240 - 445 [facility] Comment on above: Performed By: #### I RONT #### [address] [address] Laboratory - Chemistry and C hemistry - challengeon 05-25-2022 Albumin BCP dye [Mass/Vol] 4.3 g/dL 3.4 - 5.0 [facility] Work Phone: ALP [Catalytic activity/Vol] 57 U/L 33 - 110 [facility] Work Phone: [phone] ALT With P-5'-P [Catalytic activity/Vol] 29 U/L 7 - 45 [facility] Work Phone: Comment on above: Patients treated wit h Sulfasalazine may generate falsely decreased results for ALT. Anion gap [Moles/Vol] 11 mmol/L 10 - 20 [facility] Work Phone: AST With P-5'-P [Catalytic activity/Vol] 27 U/L 9 - 39 [facility] Work Phone: Bilirubin [Mass/Vol] 1.0 mg/dL 0.0 - 1.2 [facility] Work Phone: Calcium [Mass/Vol] 9.2 mg/dL 8.6 - 10.3 [facility] Work Phone: [phone] Chloride [Moles/Vol] 105 mmol/L 98 - 107 [facility] Work Phone: CO2 [Moles/Vol] 27 mmol/L 21 - 32 [facility] Work Phone: Creatinine [Mass/Vol] 0.71 mg/dL See Below [facility] Work Phone: Comment on above: Reference Range: 0.5 0 - 1.05 Glucose [Mass/Vol] 92 mg/dL 74 - 99 [facility] Work Phone: Iron [Mass/Vol] 72 ug/dL 35 - 150 [facility] Work Phone: [phone] Iron binding capacity [Mass/Vol] 399 ug/dL 240 - 445 [facility] Work Phone: Potassium [Moles/Vol] 3.8 mmol/L 3.5 - 5.3 [facility] Work Phone: Protein [Mass/Vol] 7.5 g/dL 6.4 - 8.2 [facility] Work Phone: [phone] Sodium [Moles/Vol] 139 mmol/L 136 - 145 [facility] Work Phone: [phone] Urea nitrogen [Mass/Vol] 13 mg/dL 6 - 23 [facility] Work Phone: MAGNESIUMon 05-25-2022 Magnesium [Mass/Vol] 1.93 mg/dL Normal 1.60 - 2.40 [facility] Comment on above: Performed By: #### C BCDF #### [address] [address] Magnesium, Serumon Magnesium [Mass/Vol] 1.93 mg/dL See Below [facility] Work Phone: Comment on above: Reference Range: 1.6 0 - 2.40 No Panel Informationon 05-25 >90 >90 [facility] Work Phone: Comment on above: CALCULATIONS OF SANDIP MATED GFR ARE PERFORMED USING THE 2020 CKD-EPI STUDY REFIT EQUATION WITHOUT THE RACE VARIABLE FOR THE IDMS-TRACEABLE CREATININE METHODS.https://jasn.asnjournals.org/content///ASN.2 348831557 18 % below low threshold 25 - 45 [facility] Work Phone: VITAMIN B12on 05-25-2022 Cobalamin (Vitamin B12) [Mass/Vol] 419 pg/mL Normal 211 - 911 [facility] Comment on above: Performed By: #### V TB12 #### [address] [address] VITAMIN D, 25-HYDROXYon 05-15 VITAMIN D, 25-HYDROXY 25 ng/mL Abnormal [facility] Comment on above: Result Comment: . DEFICIENCY: < 20 NG/ML INSUFFICIENCY: 20-29 NG/ML SUFFICIENCY: 30-100 NG/ML THIS ASSAY ACCURATELY QUANTIFIES THE SUM OF VITAMIN D3, 25-HYDROXY AND VIT D2,25-HYDROXY. 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) Migraine headache (346.90) (G43.909) Endometriosis (617.9) (N80.9) PTSD (post-traumatic stress disorder) (309.81) (F43.10) Polyarthralgia (719.49) (M25.50) Status post cholecystectomy (V45.79) (Z90.49) Vitamin D deficiency (268.9) (E55.9) 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 More for the fibro and stomach. Wellbutrin made her anxiety and panic attacks worse and she stopped it. Cymbalta made her sick. Dr Teague put her on Prozac 40. That is not too bad but still has anxiety. Now that she has insurance still needs to get back with [facility]. Still anxious about leaving the house but pushes to do that. Went on vacation and had to come back home after 2 days. now on days so that helps but 7 days per week. Son moved out a couple years ago and another son in November 2020 and that was hard on her. Weeping a lot missing her boys. Son visits a lot. Did get another dog for companionship. One of them is being trained for spinning operator dog. Again emphasizing need for counseling. In conversations she will get forgetful. Will repeat questions she had answered. Some speech slurring. Comes and goes. Has been to neurology for the memory. She is on Topamax and magnesium. Forgets often. Level pending. Helping the fibromyalgia. Eye on right still twitches. .PHQ-9 score 20 last spring. Not suicidal. Fibromyalgia and Polyarthralgia - . She has started on Nutraceuticals for this and not long enough to see if any help. She saw Dr Luke for RA which was negative and fibromyalgia and follow up as needed. Has had more falls. 3 in the last month. Feels like legs give out. Legs feel like Jello. Hands hard to hold tooth brush. Has had PT in past and not helped. Had normal MRI on June 20, 2021. Aggravated pains in hands and shakes when putting on hairspray. Still gets lightheaded. Tired all the time and and getting worse making depression worse. Dr Luke is doing labs. Still pain in the shoulders and back. Still pain and weakness with trying to put things in her cupboards. When brushing teeth toothbrush will fall out of hand. When driving her arms get weak and hurt. Very little energy but some days has the energy. But then is she does anything she is exhausted for a week. Had a disability evaluation with the conclusions that are not a lot different than my assessment. She is now on SSI. Can sit 15 minutes at a time for up to 6.5 hours per day. Up a down a lot. Stand 15 minutes at a time for up to 2.5 hours per day, walk 5 minutes at a time for up to 1 hour per day. Occasional lifting of 10 pounds and frequent lifting of 2-3 pounds, Occasional reaching at waist level and none about shoulders. Occasional stairs and no ladders. Occasional kneeling bending, stooping, crouching and use of feet to pedal control. Infrequent use of hands for fine and gross manipulation. She is trying Yoga for fibromyalgia. Occasional stool incontinence spells are better with the gut microbiome compound. Also having chills and hot flashes GERD and post cholecystectomy - She is feeling bloated and full less with microbiome nutraceutical. Also abdomen pain better. . So has been referred to gastroenterology was to do a colonoscopy on September 21 when he was sick. So rescheduled. Nausea and loss of appetite but not losing weight. No Melena, dysphagia, but occasional blood and heartburn since she stopped the medication for awhile. Has had a scope in 2017 with hemorrhoids. Off Questran Low vitamin D level - she is on Vitamin D weekly and labs pending Migraine headache - no change and has photophobia. Imitrex is no longer working. So she is on Topamax which does help. The neurologist added magnesium and that helps. Obesity - Down 8 pounds last time and stable this time. Forgets the Nutraceuticals she is on. URSULA (stress urinary incontinence, female) - Better since hysterectomy a year ago. Still some issues and wearing a pad. Still has pain from endometriosis. Worse with cycles with one ovary. Hopefully will stop soon with menopause Telogen hair loss still an issue. Cold sores have been doing pretty well (more content not included)... Normal [employer] Tobacco Screening.on 022 Fall risk assessment b) One or more falls in the last year [facility] Work Phone: Tobacco use status [facility] b) No [facility] Work Phone: Office Visiton 02-02-2022 Follow-up visit Diagnoses/Problems Encounter for preventive health examination (V70.0) (Z00.00) Class 2 obesity with body mass index (BMI) of 35.0 to 35.9 in adult (278.00,V85.35) (E66.9,Z68.35) Endometriosis (617.9) (N80.9) Chronic fatigue syndrome (780.71) (R53.82) Fibromyalgia (729.1) (M79.7) GERD (gastroesophageal reflux disease) (530.81) (K21.9) Malaise and fatigue (780.79) (R53.81,R53.83) Migraine headache (346.90) (G43.909) Moderate major depression (296.22) (F32.1) Polyarthralgia (719.49) (M25.50) PTSD (post-traumatic stress disorder) (309.81) (F43.10) 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) Status post cholecystectomy (V45.79) (Z90.49) Vitamin D deficiency (268.9) (E55.9) Medication management (V58.69) (Z79.899) Orders Chronic fatigue syndrome Complete Blood Count + Differential; Status:Active; Requested for:[id number]; Comprehensive Metabolic Panel; Status:Active; Requested for:05May2022; Magnesium, Serum; Status:Active; Requested for:[id number]; Medication management Follow-up visit in 3 months Outpatient Follow-up Status: Hold For - Scheduling Requested for: [id number] Vitamin D deficiency Vitamin D 25-Hydroxy; Status:Active; Requested for:[id number]; Chief Complaint medck History of Present IllnessPTSD and Depression - She is now using a lot of nutraceuticals. More for the fibro and stomach. Wellbutrin made her anxiety and panic attacks worse and she stopped it. Dr eTague put her on Prozac 40. That is not too bad but still has anxiety. Now that she has insurance still needs to get back with [facility]. Still anxious about leaving the house but pushes to do that. Went on vacation and had to come back home after 2 days. now on days so that helps but 7 days per week. Son moved out a couple years ago and another son in November 2020 and that was hard on her. Weeping a lot missing her boys. Son visits a lot. Did get another dog for companionship. One of them is being trained for spinning operator dog. Again emphasizing need for counseling. In conversations she will get forgetful. Will repeat questions she had answered. Some speech slurring. Comes and goes. Cymbalta made her sick. Has been to neurology for the memory. She is on Topamax and magnesium. Helping the fibromyalgia. Eye on right still twitches. Fibromyalgia - . She has started on Nutraceuticals for this and not long enough to see if any help. She saw Dr Luke for RA which was negative and fibromyalgia and follow up as needed. Has had more falls. Had normal MRI on June 20, 2021. Aggravated pains in hands and shakes when putting on hairspray. Still gets lightheaded. Tired all the time and and getting worse making depression worse. Still pain in the shoulders and back. Still pain and weakness with trying to put things in her cupboards. When driving her arms get weak and hurt. Very little energy but some days has the energy. Had a disability evaluation with the conclusions that are not a lot different than my assessment. She is now on SSI. Can sit 15 minutes at a time for up to 6.5 hours per day. Up a down a lot. Stand 15 minutes at a time for up to 2.5 hours per day, walk 5 minutes at a time for up to 1 hour per day. Occasional lifting of 10 pounds and frequent lifting of 2-3 pounds, Occasional reaching at waist level and none about shoulders. Occasional stairs and no ladders. Occasional kneeling bending, stooping, crouching and use of feet to pedal control. Infrequent use of hands for fine and gross manipulation. She says she is having more falls as her legs give out on her. And she is having more tremors with the weakness. She is trying Yoga for fibromyalgia. Occasional stool incontinence spells are better with the gut microbiome compound. Also having chills and hot flashes.PHQ-9 score 20 last time. . Not suicidal GERD and post cholecystectomy - She is feeling bloated and full less with microbiome nutraceutical. Also abdomen pain better. . So has been referred to gastroenterology was to do a colonoscopy on September 21 when he was sick. So rescheduled. Nausea and loss of appetite but not losing weight. No Melena, dysphagia, but occasional blood and heartburn since she stopped the medication for awhile. Has had a scope in 2016 with hemorrhoids. Impaired fasting glucose - FBS on labs in August 2020 was below 100. No polyphagia, polydipsia, polyuria, or non healing sores. Low vitamin D level - she is on Vitamin D weekly Migraine headache - no change with photophobia. Imitrex is no longer working. So she is on Topamax which does help. The neurologist added magnesium and that helps. Obesity - Down 8 pounds with the Nutraceuticals she is on. 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 To see gastroenterology. Off [employer]. PTSD (post-traumatic stress disorder) - has been to Dr Jos Luke of [facility] for the comprehensive pain management which will cover this. She is now to return as needed. She has been to neurology URSULA (stress urinary incontine (more content not included)... Normal [employer] Tobacco Screening.on 022 Tobacco use status CPHS b) No -[facility] Work Phone: CBC AND DIFFERENTIALon 11-14 Basophils (Bld) [#/Vol] 0.00 10*3/uL Normal 0.00 - 0.10 [facility] Comment on above: Performed By: #### C BCDF #### [address] [address] Basophils/100 WBC (Bld) 0.6 % Normal 0.0 - 2.0 [facility] Comment on above: Performed By: #### C BCDF #### [address] [address] Eosinophils (Bld) [#/Vol] 0.10 10*3/uL Normal 0.00 - 0.70 [facility] Comment on above: Performed By: #### C BCDF #### [address] [address] Eosinophils/100 WBC (Bld) 3.6 % Normal 0.0 - 6.0 [facility] Comment on above: Performed By: #### C BCDF #### [address] [address] Erythrocyte distribution width (RBC) [Ratio] 13.6 % Normal 11.5 - 14.5 [facility] Comment on above: Performed By: #### C BCDF #### [address] [address] Hematocrit (Bld) [Volume fraction] 37.9 % Normal 36.0 - 46.0 [facility] Comment on above: Performed By: #### C BCDF #### [address] [address] Hemoglobin (Bld) [Mass/Vol] 12.4 g/dL Normal 12.0 - 16.0 [facility] Comment on above: Performed By: #### C BCDF #### [address] [address] Lymphocytes (Bld) [#/Vol] 1.40 10*3/uL Normal 1.20 - 4.80 [facility] Comment on above: Performed By: #### C BCDF #### [address] [address] Lymphocytes/100 WBC (Bld) 37.0 % Normal 13.0 - 44.0 [facility] Comment on above: Performed By: #### C BCDF #### [address] [address] MCHC (RBC) [Mass/Vol] 32.9 g/dL Normal 32.0 - 36.0 [facility] Comment on above: Performed By: #### C BCDF #### [address] [address] MCV (RBC) [Entitic vol] 92 fL Normal 80 - 100 [facility] Comment on above: Performed By: #### C BCDF #### [address] [address] Monocytes (Bld) [#/Vol] 0.20 10*3/uL Normal 0.10 - 1.00 [facility] Comment on above: Performed By: #### C BCDF #### [address] [address] Monocytes/100 WBC (Bld) 6.2 % Normal 2.0 - 10.0 [facility] Comment on above: Performed By: #### C BCDF #### [address] [address] Neutrophils (Bld) [#/Vol] 2.10 10*3/uL Normal 1.20 - 7.70 [facility] Comment on above: Result Comment: Perc ent differential counts (%) should be interpreted in the context of the absolute cell counts (cells/L). Performed By: #### C BCDF #### [address] [address] Neutrophils/100 WBC (Bld) 52.6 % Normal 40.0 - 80.0 [facility] Comment on above: Performed By: #### C BCDF #### [address] [address] NUCLEATED RBC 0.3 /100 WBC Normal [facility] Comment on above: Performed By: #### C BCDF #### [address] [address] Platelets (Bld) [#/Vol] 289 10*3/uL Normal 150 - 450 [facility] Comment on above: Performed By: #### C BCDF #### [address] [address] RBC 4.11 x10E12/L Normal 4.00 - 5.20 [facility] Comment on above: Performed By: #### C BCDF #### [address] [address] WBC (Bld) [#/Vol] 3.9 10*3/uL Low 4.4 - 11.3 [facility] [place] Comment on above: Performed By: #### C BCDF #### [address] [address] Complete Blood Count + Diffe rentialon 11-14-2021 Basophils/100 WBC (Bld) 0.6 % 0.0 - 2.0 [facility] Work Phone: [phone] Erythrocyte distribution width (RBC) [Ratio] 13.6 % See Below [facility] Work Phone: [phone] Comment on above: Reference Range: 11. 5 - 14.5 Hematocrit (Bld) [Volume fraction] 37.9 % See Below [facility] Work Phone: [phone] Comment on above: Reference Range: 36. 0 - 46.0 Hemoglobin (Bld) [Mass/Vol] 12.4 g/dL See Below [facility] Work Phone: Comment on above: Reference Range: 12. 0 - 16.0 Lymphocytes/100 WBC (Bld) 37.0 % See Below [facility] Work Phone: [phone] Comment on above: Reference Range: 13. 0 - 44.0 MCHC (RBC) [Mass/Vol] 32.9 g/dL See Below [facility] Work Phone: Comment on above: Reference Range: 32. 0 - 36.0 MCV (RBC) [Entitic vol] 92 fL 80 - 100 [facility] Work Phone: [phone] Monocytes/100 WBC (Bld) 6.2 % 2.0 - 10.0 [facility] Work Phone: [phone] Neutrophils/100 WBC (Bld) 52.6 % See Below [facility] Work Phone: [phone] Comment on above: Reference Range: 40. 0 - 80.0 Platelets (Bld) [#/Vol] 289 10*3/uL 150 - 450 [facility] Work Phone: [phone] RBC (Bld) [#/Vol] 4.11 {x10E12/L} See Below [facility] Work Phone: [phone] Comment on above: Reference Range: 4.0 0 - 5.20 WBC (Bld) [#/Vol] 3.9 10*3/uL below low threshold 4.4 - 11.3 [facility] Work Phone: [phone] Complete Blood Count + Differential 0.00 {x10E9/L} See Below [facility] Work Phone: [phone] Comment on above: Reference Range: 0.0 0 - 0.10 Complete Blood Count + Differential 0.10 {x10E9/L} See Below [facility] Work Phone: [phone] Comment on above: Reference Range: 0.0 0 - 0.70 Complete Blood Count + Differential 0.20 {x10E9/L} See Below [facility] Work Phone: Comment on above: Reference Range: 0.1 0 - 1.00 Complete Blood Count + Differential 1.40 {x10E9/L} See Below [facility] Work Phone: Comment on above: Reference Range: 1.2 0 - 4.80 Complete Blood Count + Differential 2.10 {x10E9/L} See Below [facility] Work Phone: Comment on above: Reference Range: 1.2 0 - 7.70 Percent differential counts (%) should be interpreted in the context of the absolute cell counts (cells/L). Complete Blood Count + Differential 3.6 % 0.0 - 6.0 [facility] Work Phone: Complete Blood Count + Differential 0.3 {/100_WBC} [facility] Work Phone: CBCon 11-06-2021 Erythrocyte distribution width (RBC) [Ratio] 14.1 % Normal 11.5 - 14.5 [facility] Comment on above: Performed By: #### C BC #### [address] [address] Hematocrit (Bld) [Volume fraction] 38.0 % Normal 36.0 - 46.0 [facility] Comment on above: Performed By: #### C BC #### [address] [address] Hemoglobin (Bld) [Mass/Vol] 12.7 g/dL Normal 12.0 - 16.0 [facility] Comment on above: Performed By: #### C BC #### [address] [address] MCHC (RBC) [Mass/Vol] 33.5 g/dL Normal 32.0 - 36.0 [facility] Comment on above: Performed By: #### C BC #### [address] [address] MCV (RBC) [Entitic vol] 92 fL Normal 80 - 100 [facility] Comment on above: Performed By: #### C BC #### [address] [address] Platelets (Bld) [#/Vol] 281 10*3/uL Normal 150 - 450 [facility] Comment on above: Performed By: #### C BC #### [address] [address] RBC 4.11 x10E12/L Normal 4.00 - 5.20 [facility] Comment on above: Performed By: #### C BC #### [address] [address] WBC (Bld) [#/Vol] 4.0 10*3/uL Low 4.4 - 11.3 [facility] [place] Comment on above: Performed By: #### C BC #### [address] [address] COMPREHENSIVE PANELon 2021 Albumin [Mass/Vol] 4.2 g/dL Normal 3.4 - 5.0 [facility] [place] Comment on above: Performed By: #### C BCDF #### [address] [address] ALP [Catalytic activity/Vol] 46 U/L Normal 33 - 110 [facility] Comment on above: Performed By: #### C BCDF #### [address] [address] ALT [Catalytic activity/Vol] 18 U/L Normal 7 - 45 [facility] Comment on above: Result Comment: Maricarmen ents treated with Sulfasalazine may generate falsely decreased results for ALT. Performed By: #### C BCDF #### [address] [address] Anion gap [Moles/Vol] 11 mmol/L Normal 10 - 20 [facility] Comment on above: Performed By: #### C BCDF #### [address] [address] AST [Catalytic activity/Vol] 17 U/L Normal 9 - 39 [facility] Comment on above: Performed By: #### C BCDF #### [address] [address] Bilirubin [Mass/Vol] 0.9 mg/dL Normal 0.0 - 1.2 [facility] Comment on above: Performed By: #### C BCDF #### [address] [address] Calcium [Mass/Vol] 8.9 mg/dL Normal 8.6 - 10.3 [facility] [place] Comment on above: Performed By: #### C BCDF #### [address] [address] Chloride [Moles/Vol] 110 mmol/L High 98 - 107 [facility] Comment on above: Performed By: #### C BCDF #### [address] [address] Creatinine [Mass/Vol] 0.73 mg/dL Normal 0.50 - 1.05 [facility] Comment on above: Performed By: #### C BCDF #### [address] [address] eGFR FEMALE >90 Normal >90 [facility] Comment on above: Result Comment: CALC ULATIONS OF ESTIMATED GFR ARE PERFORMED USING THE 2020 CKD-EPI STUDY REFIT EQUATION WITHOUT THE RACE VARIABLE FOR THE IDMS-TRACEABLE CREATININE METHODS. https://jasn.asnjournals.org/content/early//ASN.344420028 8 Performed By: #### C BCDF #### [address] [address] Glucose [Mass/Vol] 93 mg/dL Normal 74 - 99 [facility] [place] Comment on above: Performed By: #### C BCDF #### [address] [address] HCO3 (Bld) [Moles/Vol] 22 mmol/L Normal 21 - 32 [facility] Comment on above: Performed By: #### C BCDF #### [address] [address] Potassium [Moles/Vol] 3.8 mmol/L Normal 3.5 - 5.3 [facility] Comment on above: Performed By: #### C BCDF #### [address] [address] Protein [Mass/Vol] 6.9 g/dL Normal 6.4 - 8.2 [facility] [place] Comment on above: Performed By: #### C BCDF #### [address] [address] Sodium [Moles/Vol] 139 mmol/L Normal 136 - 145 [facility] [place] Comment on above: Performed By: #### C BCDF #### [address] [address] Urea nitrogen [Mass/Vol] 12 mg/dL Normal 6 - 23 [facility] Comment on above: Performed By: #### C BCDF #### [address] [address] Laboratory - Chemistry and C hemistry - challengeon 11-06-2021 Albumin BCP dye [Mass/Vol] 4.2 g/dL 3.4 - 5.0 [facility] Work Phone: ALP [Catalytic activity/Vol] 46 U/L 33 - 110 [facility] Work Phone: [phone] ALT With P-5'-P [Catalytic activity/Vol] 18 U/L 7 - 45 [facility] Work Phone: [phone] Comment on above: Patients treated wit h Sulfasalazine may generate falsely decreased results for ALT. Anion gap [Moles/Vol] 11 mmol/L 10 - 20 [facility] Work Phone: AST With P-5'-P [Catalytic activity/Vol] 17 U/L 9 - 39 [facility] Work Phone: Bilirubin [Mass/Vol] 0.9 mg/dL 0.0 - 1.2 [facility] Work Phone: Calcium [Mass/Vol] 8.9 mg/dL 8.6 - 10.3 [facility] Work Phone: Chloride [Moles/Vol] 110 mmol/L above high threshold 98 - 107 [facility] Work Phone: CO2 [Moles/Vol] 22 mmol/L 21 - 32 [facility] Work Phone: Creatinine [Mass/Vol] 0.73 mg/dL See Below [facility] Work Phone: Comment on above: Reference Range: 0.5 0 - 1.05 Glucose [Mass/Vol] 93 mg/dL 74 - 99 [facility] Work Phone: [phone] Potassium [Moles/Vol] 3.8 mmol/L 3.5 - 5.3 [facility] Work Phone: [phone] Protein [Mass/Vol] 6.9 g/dL 6.4 - 8.2 [facility] Work Phone: [phone] Sodium [Moles/Vol] 139 mmol/L 136 - 145 [facility] Work Phone: [phone] TSH Qn 1.01 m[IU]/L See Below [facility] Work Phone: Comment on above: Reference Range: 0.4 4 - 3.98 TSH testing is performed using different testing methodology at [facility] than at other [facility]. Direct result comparisons should only be made within the same method. Urea nitrogen [Mass/Vol] 12 mg/dL 6 - 23 [facility] Work Phone: Laboratory - Hematology and Cell countson 11-06-2021 Erythrocyte distribution width (RBC) [Ratio] 14.1 % See Below [facility] Work Phone: Comment on above: Reference Range: 11. 5 - 14.5 Hematocrit (Bld) [Volume fraction] 38.0 % See Below [facility] Work Phone: Comment on above: Reference Range: 36. 0 - 46.0 Hemoglobin (Bld) [Mass/Vol] 12.7 g/dL See Below [facility] Work Phone: Comment on above: Reference Range: 12. 0 - 16.0 MCHC (RBC) [Mass/Vol] 33.5 g/dL See Below [facility] Work Phone: [phone] Comment on above: Reference Range: 32. 0 - 36.0 MCV (RBC) [Entitic vol] 92 fL 80 - 100 [facility] Work Phone: [phone] Platelets (Bld) [#/Vol] 281 10*3/uL 150 - 450 [facility] Work Phone: [phone] RBC (Bld) [#/Vol] 4.11 {x10E12/L} See Below [facility] Work Phone: Comment on above: Reference Range: 4.0 0 - 5.20 WBC (Bld) [#/Vol] 4.0 10*3/uL below low threshold 4.4 - 11.3 [facility] Work Phone: No Panel Informationon 11-06 >90 >90 [facility] Work Phone: Comment on above: CALCULATIONS OF SANDIP MATED GFR ARE PERFORMED USING THE 2020 CKD-EPI STUDY REFIT EQUATION WITHOUT THE RACE VARIABLE FOR THE IDMS-TRACEABLE CREATININE METHODS.https://jasn.asnjournals.org/content/early//ASN.2 362574116 SEDIMENTATION RATE, ERYTHROC YTEon 11-06-2021 SEDIMENTATION RATE, ERYTHROCYTE 14 mm/h Normal 0 - 20 [facility] Comment on above: Performed By: #### C BCDF #### [address] [address] Sedimentation Rate, Erythroc yteon 11-06-2021 ESR (Bld) [Velocity] 14 mm/h 0 - 20 [facility] Work Phone: TSH WITH REFLEX TO FREE T4 I F ABNORMALon 11-06-2021 TSH Qn 1.01 m[IU]/L Normal 0.44 - 3.98 [facility] [place] Comment on above: Result Comment: TSH testing is performed using different testing methodology at [facility] than at other [facility]. Direct result comparisons should only be made within the same method. Performed By: #### T HYDS #### [address] [address] VITAMIN B12on 11-06-2021 Cobalamin (Vitamin B12) [Mass/Vol] 469 pg/mL Normal 211 - 911 [facility] Comment on above: Performed By: #### V TB12 #### [address] [address] VITAMIN D, 25-HYDROXYon 10-14 VITAMIN D, 25-HYDROXY 23 ng/mL Abnormal [facility] Comment on above: Result Comment: . DEFICIENCY: < 20 NG/ML INSUFFICIENCY: 20-29 NG/ML SUFFICIENCY: 30-100 NG/ML THIS ASSAY ACCURATELY QUANTIFIES THE SUM OF VITAMIN D3, 25-HYDROXY AND VIT D2,25-HYDROXY. Performed By: #### V TDOH #### [address] [address] Vitamin B12, Serumon 022 Cobalamin (Vitamin B12) [Mass/Vol] 469 pg/mL 211 - 911 [facility] Work Phone: Vitamin D 25-Hydroxyon 11-06 25-hydroxyvitamin D3 [Mass/Vol] 23 ng/mL Abnormal [facility] Work Phone: Comment on above: .DEFICIENCY: < 20 NG /MLINSUFFICIENCY: 20-29 NG/MLSUFFICIENCY: 30-100 NG/MLTHIS ASSAY ACCURATELY QUANTIFIES THE SUM OFVITAMIN D3, 25-HYDROXY AND VIT D2,25-HYDROXY. 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) Polyarthralgia (719.49) (M25.50) PTSD (post-traumatic stress disorder) (309.81) (F43.10) Status post cholecystectomy (V45.79) (Z90.49) Chronic fatigue syndrome (780.71) (R53.82) Malaise and fatigue (780.79) (R53.81,R53.83) Vitamin D deficiency (268.9) (E55.9) Migraine headache (346.90) (G43.909) Medication management (V58.69) (Z79.899) 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) Orders Malaise and fatigue Complete Blood Count; Status:Active; Requested for:20Oct2021; Comprehensive Metabolic Panel; Status:Active; Requested for:20Oct2021; TSH WITH REFLEX TO FREE T4 IF ABNORMAL; Status:Active; Requested for:20Oct2021; Vitamin B12, Serum; Status:Active; Requested for:20Oct2021; Medication management Follow-up visit in 3 months Outpatient Follow-up Status: Hold For - Scheduling Requested for: 20Oct2021 Moderate major depression Renew: FLUoxetine HCl - 40 MG Oral Capsule; TAKE 1 CAPSULE Daily Polyarthralgia Sedimentation Rate, Erythrocyte; Status:Active; Requested for:20Oct2021; Vitamin D deficiency Vitamin D 25-Hydroxy; Status:Active; Requested for:20Oct2021; Chief Complaint [facility] Adult Risk Screening Depression/Suicide Screening: During the past 2 weeks, the patient felt down, depressed or hopeless. During the past 2 weeks, the patient felt little interest or pleasure in doing things. PHQ-9 Depression Scale: 1. Little interest or pleasure in doing things - nearly every day 2. Feeling down, depressed or hopeless - more than half the days 3. Trouble falling asleep or sleeping too much - more than half the days 4. Feeling tired or having little energy - nearly every day 5. Poor appetite or overeating - nearly every day 6. Feeling bad about self or failure or letting others down - nearly every day 7. Trouble concentrating on things - more than half the days 8. Moving / speaking slowly or fidgety / restless - more than half the days 9. Thought would be better off or hurting self - not at all Total Score: 20/27 Severity of depression is severe. How difficult have these problems made it for you to do your work, take care of things at home, or get along with people? Very Difficult. History of Present Illness PTSD and Depression - Wellbutrin made her anxiety and panic attacks worse and she stopped it. Dr Teague put her on Prozac 40. That is not too bad but still has anxiety. Now that she has insurance still needs to get back with [facility]. Still anxious about leaving the house but pushes to to that. now on days so that helps but 7 days per week. Son moved out a couple years ago and another son in November 2020 and that was hard on her. Weeping a lot missing her boys. Son visits a lot. Did get another dog for companionship. Again emphasizing need for counseling. In conversations she will get forgetful. Will repeat questions she had answered. Flor made her sick. Has been to neurology for the memory. She is on Topamax and magnesium. Helping the fibromyalgia. Eye on right still twitches. Fibromyalgia - . She saw Dr Luke for RA which was negative and fibromyalgia and follow up as needed. Sent to neurology as above for memory. Had normal MRI on June 20, 2021. Has had more falls including in August and bruised left hand. Aggravated this. Still gets lightheaded. Tired all the time and and getting worse making depression worse. Also getting pain in hands. Still pain in the shoulders and back. Still pain and weakness with trying to put things in her cupboards. When driving her arms get weak and hurt. Very little energy but some days has the energy. Had a disability evaluation with the conclusions that are not a lot different than my assessment. She is now on SSI. Can sit 15 minutes at a time for up to 6.5 hours per day. Up a down a lot. Stand 15 minutes at a time for up to 2.5 hours per day, walk 5 minutes at a time for up to 1 hour per day. Occasional lifting of 10 pounds and frequent lifting of 2-3 pounds, Occasional reaching at waist level and none about shoulders. Occasional stairs and no ladders. Occasional kneeling bending, stooping, crouching and use of feet to pedal control. Infrequent use of hands for fine and gross manipulation. She says she is having more falls as her legs give out on her. And she is having more tremors with the weakness. She is trying Yoga for fibromyalgia. Occasional stool incontinence spells.. Also having chills and hot flashes.PHQ-9 score 20. Not suicidal GERD and post cholecystectomy - She is feeling bloated and full all the time. Abdomen pain. So has been referred to gastroenterology was to do a colonoscopy on September 21 when he was sick. So rescheduled. Nausea and loss of appetite but not losing w (more content not included)... Normal [employer] Tobacco Screening.on 022 Adult depression screening assessment Yes [facility] Work Phone: [phone] Tobacco use status CPHS b) No [facility] Work Phone: CNPNon 09-22-2021 CNPN Telephone (AKASCP) -------- ENMA HAWLEY ([id number]) 1975 F Date Time Provider Department 09/22/21 JOSE ALFREDO CARLOS During your visit today, we recorded the following information about you: Jose Alfredo Carlos MD 09/22/2021 10:52 AM Signed Pt called back at surgery ctr. Didn't know about appt, but apparently sick May be rescheduled for procedures. May need to adjust f/up appt dep on reschedule sharan. Chanda Lance MA 09/22/2021 2:04 PM Signed Left message to call to schedule Egd/Colon Chanda Lance MA Allergies As of Date: 09/22/2021 Noted Allergy Reaction CODEINE 06/17/2017 8 - GI Upset Date Reviewed: 08/03/2021 Reviewed by: Jose Alfredo Carlos MD - Fully Assessed Reason for Visit: Procedure [88] Prescriptions as of 09/22/2021 - topiramate (TOPAMAX) 100 mg tablet Take 1 tablet by mouth daily at bedtime. - pantoprazole (PROTONIX) 40 mg injection Inject intravenously DAILY (6 AM). - aspirin/acetaminophen/ca ffeine (EXCEDRIN MIGRAINE ORAL) Take by mouth. - MULTIVITAMIN ORAL Take by mouth. - COLLAGEN MISC - ascorbic acid (VITAMIN C ORAL) Take by mouth. - BIOTIN ORAL Take by mouth. - prochlorperazine (COMPAZINE) 10 mg tablet Take 1 tablet by mouth twice daily as needed. - magnesium oxide (MAG-OX) 400 mg (241.3 mg magnesium) tablet Take 1 tablet by mouth twice daily. - riboflavin, vitamin B2, (VITAMIN B-2) 100 mg tab Take 1 tablet by mouth once daily. - FLUoxetine HCl (PROZAC) 40 mg capsule Take 40 mg by mouth once daily. Problem List As Of Date 09/22/2021 Noted Resolved HYPERTROPHY OF BREAST [N62] 02/21/2005 Fibromyalgia [M79.7] Encounter Status:Closed by CHANDA LANCE on 09/22/21 [facility] CNOVon 08-03-2021 CNOV Office Visit (AGGAST N) -------- ENMA HAWLEY ([id number]) 1975 F Date Time Provider Department 08/03/21 11:00 AM JOSE ALFREDO CARLOS During your visit today, we recorded the following information about you: Pulse Blood pressure Weight Height 90/minute 120/85 86.5 kg 1.473 m Jose Alfredo Carlos MD 08/03/2021 11:34 AM Signed HPI: Enma Hawley is a 46 year old female who presents for Consult (Bloating and IBS ). Pt is here for the above. Pt has hx of FMG. Had an EGD and colonoscopy early . Pt is on pantoprazole 40 mg daily. Gets postprandial bloating. Eats less but no wt loss. Has lower abd pain before a BM then relief. BM's can be hard but much of the time has postprandial urgency and loose stools. Another colonoscopy was done 2016 and was neg. At ? Not in Epic. Sees blood w some straining 2-3x's per mo. Has a BM 1-3x's per day. Has some reflux but may be more related to compliance w PPI. Has some nausea, occas emesis w sinus issues? No dysphagia. M had CRC. Current Outpatient Medications Medication Sig - topiramate (TOPAMAX) 100 mg tablet Take 1 tablet by mouth daily at bedtime. - pantoprazole (PROTONIX) 40 mg injection Inject intravenously DAILY (6 AM). - aspirin/acetaminophen/ca ffeine (EXCEDRIN MIGRAINE ORAL) Take by mouth. - MULTIVITAMIN ORAL Take by mouth. - COLLAGEN MISC - ascorbic acid (VITAMIN C ORAL) Take by mouth. - BIOTIN ORAL Take by mouth. - prochlorperazine (COMPAZINE) 10 mg tablet Take 1 tablet by mouth twice daily as needed. - FLUoxetine HCl (PROZAC) 40 mg capsule Take 40 mg by mouth once daily. - magnesium oxide (MAG-OX) 400 mg (241.3 mg magnesium) tablet Take 1 tablet by mouth twice daily. - riboflavin, vitamin B2, (VITAMIN B-2) 100 mg tab Take 1 tablet by mouth once daily. No current facility-administered medications for this visit. PAST MEDICAL HISTORY Diagnosis Date - Anxiety - Depression - Fibromyalgia - Insomnia PAST SURGICAL HISTORY Procedure Laterality Date - BREAST REDUCTION - SECTION HX - CHOLECYSTECTOMY FAMILY HISTORY Problem Relation Age of Onset - Colon Cancer Mother - Heart Attack Brother Social History Tobacco Use - Smoking status: Never Smoker - Smokeless tobacco: Never Used Substance Use Topics - Alcohol use: No - Drug use: No ALLERGIES Allergen Reactions - Codeine GI Upset REVIEW OF SYSTEMS GENERAL: No weight loss, malaise or fevers. HEENT: Negative for frequent or significant headaches, No changes in hearing or vision, no nose bleeds or other nasal problems. NECK: Negative for lumps, goiter, pain and significant neck swelling. RESPIRATORY: Negative for cough, hemoptysis, wheezing or shortness of breath CARDIOVASCULAR: Negative for chest pain, leg swelling or palpitations GI: See HPI : No history of dysuria, frequency or incontinence MUSCULOSKELETAL: Negative for joint pain or swelling, back pain or muscle pain. SKIN: Negative for lesions, rash, and itching PSYCH: Negative for sleep disturbance, mood disorder and recent psychosocial stressors NEURO: No history of headaches, syncope, paralysis, seizures or tremors PHYSICAL EXAMINATION: BP 120/85 Pulse 90 Ht 4' 10 (1.47m) Wt 190 lb 12.8 oz (86.5kg) BMI 39.89 kg/(m2). GENERAL APPEARANCE: Well appearing, alert, in no acute distress, well-hydrated, well nourished.. SKIN: Skin color, texture, turgor normal, no suspicious rashes or lesions. EYES: Anicteric sclera. Pupils are equally round and reactive to light. Extraocular movements are intact. . NECK: Supple, no adenopathy; thyroid symmetric, normal size, no bruits. LUNGS: Lungs clear to auscultation. No wheezing, rhonchi, rales. HEART: RRR without murmur, gallop, or rubs. No ectopy. ABDOMEN: Normal, soft, non-tender, no masses or organomegaly. EXTREMITIES: No deformities, edema, skin discoloration, clubbing or cyanosis. NEUROLOGIC: Gait normal. Sensation and strength grossly intact.. ASSESSMENT AND PLAN: ASSESSMENT/PLAN: 1. Family hx of colon cancer - ICD9: V16.0, ICD10: Z80.0 (primary diagnosis) - COLONOSCOPY DIAGNOSTIC 2. Rectal bleeding - ICD9: 569.3, ICD10: K62.5 - COLONOSCOPY DIAGNOSTIC 3. Lower abdominal pain - ICD9: 789.09, ICD10: R10.30 - COLONOSCOPY DIAGNOSTIC 4. Early satiety - ICD9: 780.94, ICD10: R68.81 - EGD DIAGNOSTIC 5. Gastroesophageal reflux disease, unspecified whether esophagitis present - ICD9: 530.81, ICD10: K21.9 - Discussed lifestyle modifications including losing weight, limiting caffeine, no meals three hours before sleep and head of bed elevation - EGD DIAGNOSTIC 6. Functional diarrhea - ICD9: 564.5, ICD10: K59.1 - COLONOSCOPY DIAGNOSTIC - EGD DIAGNOSTIC MD Chanda Park MA 08/03/2021 11:55 AM Signed Addended by: CHANDA LANCE on: 08/03/2021 11:55 AM Modules accepted: Orders Referring Provider: GARRY LUKE (more content not included)... [facility] Maria Elena 08-03-2021 TEE Telephone (AGGASTN) -------- ENMA HAWLEY ([id number]) 1975 F Date Time Provider Department 08/03/21 JOSE ALFREDO CARLOS During your visit today, we recorded the following information about you: Chanda Lance MA 08/03/2021 11:47 AM Signed c Allergies As of Date: 08/03/2021 Noted Allergy Reaction CODEINE 06/17/2017 8 - GI Upset Date Reviewed: 08/03/2021 Reviewed by: Jose Alfredo Carlos MD - Fully Assessed Reason for Visit: Orders [681] Primary Visit Diagnosis:Family hx of colon cancer [Z80.0] Other Visit Diagnoses:Rectal bleeding [K62.5] Lower abdominal pain [R10.30] Early satiety [R68.81] Gastroesophageal reflux disease, unspecified whether esophagitis present [K21.9] Functional diarrhea [K59.1] Order(s):PRE-PROCEDURE AND PRE-OPERATIVE COVID [SQPOCOVD] Order #: [id number] FUTURE Prescriptions as of 08/03/2021 - topiramate (TOPAMAX) 100 mg tablet Take 1 tablet by mouth daily at bedtime. - pantoprazole (PROTONIX) 40 mg injection Inject intravenously DAILY (6 AM). - aspirin/acetaminophen/ca ffeine (EXCEDRIN MIGRAINE ORAL) Take by mouth. - MULTIVITAMIN ORAL Take by mouth. - COLLAGEN MISC - ascorbic acid (VITAMIN C ORAL) Take by mouth. - BIOTIN ORAL Take by mouth. - prochlorperazine (COMPAZINE) 10 mg tablet Take 1 tablet by mouth twice daily as needed. - magnesium oxide (MAG-OX) 400 mg (241.3 mg magnesium) tablet Take 1 tablet by mouth twice daily. - riboflavin, vitamin B2, (VITAMIN B-2) 100 mg tab Take 1 tablet by mouth once daily. - FLUoxetine HCl (PROZAC) 40 mg capsule Take 40 mg by mouth once daily. Problem List As Of Date 08/03/2021 Noted Resolved HYPERTROPHY OF BREAST [N62] 02/21/2005 Fibromyalgia [M79.7] Encounter Status:Closed by CHANDA LANCE on 08/03/21 [facility] FOLATE SERUMon 08-03-2021 Folate [Mass/Vol] ng/mL Normal >4.7 [facility] Comment on above: Order Comment: Speci men Type: BLOOD SPECIMEN Result Comment: A re sult of > 20 ng/mL is not necessarily indicative of a pathologic or treatable condition: it reflects a limitation of the test methodology. Assay reference range: 4.8 to 24.2 ng/mL. Suitable for detection of folate deficiency. Reference: Folate III (Folate III) [package insert V 1.0 Slovak]. [facility], [place], [place]: May 2015. Performed By: #### S ERFOL #### [facility] CLIA [id number] [address] VITAMIN B12 BLOODon 08-03-19 Cobalamin (Vitamin B12) [Mass/Vol] 1153 pg/mL Normal 232-1,245 [facility] Comment on above: Order Comment: Speci men Type: BLOOD SPECIMEN Performed By: #### B 12 #### [facility] CLIA [id number] [address] CNPNon 07-10-2021 CNPN Telephone (NEMyDatingTreeK) -------- ENMA HAWLEY ([id number]) 1975 F Date Time Provider Department 07/10/21 LEONILA MIRZA During your visit today, we recorded the following information about you: Clayton Galloway 07/10/2021 1:22 PM Signed Patient called in requesting we mail the lab work orders to the patients home so that she can have the labs done in [place] at . Orders were printed and mailed to the patient. Allergies As of Date: 07/10/2021 Noted Allergy Reaction CODEINE 06/17/2017 8 - GI Upset Date Reviewed: 05/11/2021 Reviewed by: Jos Luke MD - Fully Assessed Reason for Visit: Orders [681] Prescriptions as of 07/10/2021 - topiramate (TOPAMAX) 100 mg tablet Take 1 tablet by mouth daily at bedtime. - pantoprazole (PROTONIX) 40 mg injection Inject intravenously DAILY (6 AM). - aspirin/acetaminophen/ca ffeine (EXCEDRIN MIGRAINE ORAL) Take by mouth. - MULTIVITAMIN ORAL Take by mouth. - COLLAGEN MISC - ascorbic acid (VITAMIN C ORAL) Take by mouth. - BIOTIN ORAL Take by mouth. - prochlorperazine (COMPAZINE) 10 mg tablet Take 1 tablet by mouth twice daily as needed. - magnesium oxide (MAG-OX) 400 mg (241.3 mg magnesium) tablet Take 1 tablet by mouth twice daily. - riboflavin, vitamin B2, (VITAMIN B-2) 100 mg tab Take 1 tablet by mouth once daily. - FLUoxetine HCl (PROZAC) 40 mg capsule Take 40 mg by mouth once daily. Problem List As Of Date 07/10/2021 Noted Resolved HYPERTROPHY OF BREAST [N62] 02/21/2005 Fibromyalgia [M79.7] Encounter Status:Closed by CLAYTON GALLOWAY on 07/10/21 [facility] Office Visiton 06-15-2021 Follow-up visit Diagnoses/Problems Class 2 severe obesity with serious comorbidity and body mass index (BMI) of 36.0 to 36.9 in adult (278.01,V85.36) (E66.01,Z68.36) PTSD (post-traumatic stress disorder) (309.81) (F43.10) Malaise and fatigue (780.79) (R53.81,R53.83) GERD (gastroesophageal reflux disease) (530.81) (K21.9) Fibromyalgia (729.1) (M79.7) Migraine headache (346.90) (G43.909) Polyarthralgia (719.49) (M25.50) 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) Status post cholecystectomy (V45.79) (Z90.49) Moderate major depression (296.22) (F32.1) Medication management (V58.69) (Z79.899) Orders Medication management Follow-up visit in 4 Months Outpatient Follow-up Status: Hold For - Scheduling Requested for: [id number] Migraine headache Changed: From Topiramate 25 MG Oral Tablet TAKE 4 TABLETS BY MOUTH ONCE DAILY AT BEDTIME To Topiramate 100 MG Oral Tablet TAKE 1 TABLET DAILY Recurrent cold sores Renew: Acyclovir 400 MG Oral Tablet; TAKE 1 TABLET 3 TIMES DAILY Status post cholecystectomy Stop: Cholestyramine 4 GM Oral Packet Patient Discussion/Summary Still needs to get out for counseling and needs to do the YOGA. Chief Complaint medck History of Present IllnessPTSD and Depression - Wellbutrin made her anxiety and panic attacks worse and she stopped it. Dr Teague put her on Prozac 40. That is not too bad but still has anxiety. Now that she has insurance still needs to get back with [facility]. Anxious about leaving the house. now on days so that helps. Son moved out a couple years ago and another son in November and that was hard on her. Weeping a lot missing her boys. Again emphasizing need for counseling. In conversations she will get forgetful. Will repeat questions she had answered. Cymbalta made her sick. Has been to neurology for the memory. She is on Topamax and magnesium. Helping the fibromyalgia. Still forgetful. Eye on right still twitches. She is about to lose long friend dog. Fibromyalgia - . She saw Dr Luke for RA which was negative and fibromyalgia and follow up as needed. Sent to neurology as above for memory. To have MRI on June 20. . Has had more falls and aggravated this. Still gets lightheaded. Tired all the time and and getting worse making depression worse. Also getting pain in hands. Still pain in the shoulders and back. Still pain and weakness with trying to put things in her cupboards. When driving her arms get weak and hurt. Very little energy but some days has the energy. Had a disability evaluation with the conclusions that are not a lot different than my assessment. She is now on SSI. Can sit 15 minutes at a time for up to 6.5 hours per day. Up a down a lot. Stand 15 minutes at a time for up to 2.5 hours per day, walk 5 minutes at a time for up to 1 hour per day. Occasional lifting of 10 pounds and frequent lifting of 2-3 pounds, Occasional reaching at waist level and none about shoulders. Occasional stairs and no ladders. Occasional kneeling bending, stooping, crouching and use of feet to pedal control. Frequent use of hands for fine and gross manipulation. Frequent usages above which I would actually put somewhere between occasional and frequent. She says she is having more falls as her legs give out on her. And she is having more tremors with the weakness. She is trying Yoga for fibromyalgia. Did have as stool incontinence spell a few weeks ago. Also having chills and hot flashes GERD - She is feeling bloated and full all the time. Abdomen pain. So has been referred to gastroenterology. Nausea and loss of appetite but not losing weight. No HB, Melena, dysphagia, but occasional blood. Has had a scope in 2017 with hemorrhoids. Impaired fasting glucose - FBS on labs in August was below 100. No polyphagia, polydipsia, polyuria, or non healing sores. Low vitamin D level - she is on supplement for this. Migraine headache - no change with photophobia. Imitrex is no longer working. So she is on Topamax which does help. The neurologist added magnesium. Forgets to take medications. Obesity - frustrated with this as she cannot work out due to pain. Feels she does not eat much at all and she still not able to lose. 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 No blood but has a lot of food particles. Some incontinence. She is bloated all the time. To see gastroenterology. Off [facility]. PTSD (post-traumatic stress disorder) - has been to Dr Jos Luke of [facility] for the comprehensive pain management which will cover this. She is now to return as needed. She is seeing neurology URSULA (stress urinary incontinence, female) - Better since hysterectomy a year ago. Still some issues. . Telogen hair loss still an issue. Cold sores have been doing pretty well lately. Rare acyclovir Active Problems Endometriosis (617.9) (N80.9) Fibromyalgia (729.1) (M79.7) GERD (gastroesophageal reflux disease) (530.81) (K21.9) Malaise and fatigue (780.79) (R53.81,R53.83) Medication management (V58.69) (more content not included)... Normal [employer] Tobacco Screening.on 12-02-2 021 Tobacco use status HS b) No [facility] Work Phone: Salome 05-11-2021 CNOV Office Visit (NEVA DANIELS) -------- ENMA HAWLEY ([id number]) 1975 F Date Time Provider Department 05/11/21 1:00 PM JOS LUKE During your visit today, we recorded the following information about you: Temperature Pulse Blood pressure Weight 98.2 degrees 85/minute 115/92 84.4 kg Height 1.524 m Jos Luke MD 05/11/2021 1:12 PM Signed Subjective HPI: 46-year-old pleasant lady with generalized chronic pain, hypermobility is here for follow-up. She has a history of fibromyalgia and has failed multiple medications. Since last visit she has seen a neurologist and diagnosed with migraine and given medication. She is also scheduled for some additional evaluation. Recently she has noted some increased nausea, abdominal pain. She is on PPI through her PCP already. Her pain today is 6/10 in her neck, upper back, elbows, hands, knees and hips. She is noted some swelling in the morning in the hands and feet but no swelling right now. Stiffness in the morning can last many hours. She is elected to hold off on repeat physical therapy. She did physical therapy in 2018 without much response. She continues to have fatigue. She has been recommended sleep study but has not been able to go. She had a hysterectomy in April 2020. She has failed multiple NSAIDs. She has failed gabapentin, Cymbalta, Lyrica, ibuprofen. She continues to describe fatigue. She has insomnia. New patient visit August 24, 2019 Enma Hawley is a 44 year old female who presents with generalized chronic pain is here for evaluation. She's been diagnosed with fibromyalgia by her PCP but has failed multiple medications. Her pain is 6/10 all over especially shoulders, back, hips and knees. She has no swelling. Stiffness can be worse in the morning and sometimes last 4-5 hours area she's had the symptoms at least since 2008. She has tried physical therapy and water therapy in 2018? But didn't see much improvement. She's tried various NSAIDs without much improvement. She takes ibuprofen without any relief. NSAIDs also upset her stomach. She has tried gabapentin, Cymbalta, Lyrica but has had trouble tolerating all these medications. She hasn't had any blood work recently. She describes dry mouth but no dry eyes. She denies any raynauds. She's noticed a itchy rash underneath her left breast for which she uses cortisone but has not seen a trench pipe layer for it. She denies any other rashes. She denies any family history of autoimmune disease. PAST MEDICAL HISTORY Diagnosis Date - Anxiety - Depression - Fibromyalgia - Insomnia PAST SURGICAL HISTORY Procedure Laterality Date - BREAST REDUCTION - SECTION HX - CHOLECYSTECTOMY Health Maintenance Procedures DEPRESSION SCREENING Never done HIV SCREENING Never done DTAP,TDAP,TD(1 - Tdap) Never done PAP TESTING Never done HPV TESTING Never done MAMMOGRAM Never done LIPID SCREEN Never done COLORECTAL CANCER SCREENING Never done INFLUENZA(1) due on 03/15/2021 Discussed health maintenance, including regular aerobic exercise, low fat diet, and periodic exams. Health Maintenance Immunizations Given Immunizations: Immunization History Administered Date(s) Administered COVID-19 vaccine ([employer]) 04/07/2021 04/28/2021 Current Outpatient Medications Medication Sig - topiramate (TOPAMAX) 100 mg tablet Take 1 tablet by mouth daily at bedtime. - pantoprazole (PROTONIX) 40 mg injection Inject intravenously DAILY (6 AM). - aspirin/acetaminophen/ca ffeine (EXCEDRIN MIGRAINE ORAL) Take by mouth. - MULTIVITAMIN ORAL Take by mouth. - COLLAGEN MISC - ascorbic acid (VITAMIN C ORAL) Take by mouth. - BIOTIN ORAL Take by mouth. - prochlorperazine (COMPAZINE) 10 mg tablet Take 1 tablet by mouth twice daily as needed. - magnesium oxide (MAG-OX) 400 mg (241.3 mg magnesium) tablet Take 1 tablet by mouth twice daily. - riboflavin, vitamin B2, (VITAMIN B-2) 100 mg tab Take 1 tablet by mouth once daily. - FLUoxetine HCl (PROZAC) 40 mg capsule Take 40 mg by mouth once daily. No current facility-administered medications for this visit. ALLERGIES Allergen Reactions - Codeine GI Upset FAMILY HISTORY Problem Relation Age of Onset - Colon Cancer Mother - Heart Attack Brother Social History Tobacco Use - Smoking status: Never Smoker - Smokeless tobacco: Never Used Substance Use Topics - Alcohol use: No - Drug use: No History Review: I have reviewed and modified as needed, the following during this visit: Allergies, Past Medical History, Past Surgical History, Past Family History, Past Social History. Review of Systems CONSTITUTIONAL: Recent Weight Gain: no Recent Weight Loss: No Fatigue: Yes Weakness: no Fever: No EYES: Pain: no Redness: No Loss of vision: No Double or blurred vision: No Dryness: No Feels like something in eye: (more content not included)... Normal [facility] 05-11-2021 [facility] Telephone (AGRHEUHWN ) -------- ENMA HAWLEY ([id number]) 1975 F Date Time Provider Department 05/11/21 JOS LUKE During your visit today, we recorded the following information about you: Linda Rodriguez [employer] 05/11/2021 1:18 PM Signed Internal referral #[id number] GI Linda Rodriguez [place] Linda Rodriguez [place] 05/19/2021 8:36 AM Signed Allergies As of Date: 05/11/2021 Noted Allergy Reaction CODEINE 06/17/2017 8 - GI Upset Date Reviewed: 05/11/2021 Reviewed by: Jos Luke MD - Fully Assessed Reason for Visit: Initial Consult [145] Cmt: gastroenterology Prescriptions as of 05/19/2021 - topiramate (TOPAMAX) 100 mg tablet Take 1 tablet by mouth daily at bedtime. - pantoprazole (PROTONIX) 40 mg injection Inject intravenously DAILY (6 AM). - aspirin/acetaminophen/ca ffeine (EXCEDRIN MIGRAINE ORAL) Take by mouth. - MULTIVITAMIN ORAL Take by mouth. - COLLAGEN MISC - ascorbic acid (VITAMIN C ORAL) Take by mouth. - BIOTIN ORAL Take by mouth. - prochlorperazine (COMPAZINE) 10 mg tablet Take 1 tablet by mouth twice daily as needed. - magnesium oxide (MAG-OX) 400 mg (241.3 mg magnesium) tablet Take 1 tablet by mouth twice daily. - riboflavin, vitamin B2, (VITAMIN B-2) 100 mg tab Take 1 tablet by mouth once daily. - FLUoxetine HCl (PROZAC) 40 mg capsule Take 40 mg by mouth once daily. Problem List As Of Date 05/11/2021 Noted Resolved HYPERTROPHY OF BREAST [N62] 02/21/2005 Fibromyalgia [M79.7] Encounter Status:Closed by SHEKHAR MENESESARYLINDA on 05/11/21 [facility] Office Visit (DALIA ) -------- ENMA HAWLEY ([id number]) 1975 F Date Time Provider Department 12/30/20 10:30 AM LEONILA MIRZA During your visit today, we recorded the following information about you: Pulse Blood pressure Weight Height 76/minute 122/76 85.4 kg 1.473 m Leonila Mirza MD 01/28/2021 9:51 PM Signed NEW PATIENT EVALUATION Subjective HPI Enma Hawley is a 45 year old right-handed female who presents for evaluation of memory difficulty. Dr. Luke is the referring physician. Dr. Mega Rivas MD is the PCP. She explains that she has had migraines as long as she can remember. Diagnosed with fibromyalgia in 2017. Headache description: - Aura: n/a - Onset: Any time - Location: Starts in the back and then holocranial - Pain: Throbbing / pounding - Duration: All day to a few days - Frequency: Daily for a few months, before that was 2-3 times a month - A/w: (++)photophobia / (++)phonophobia / (+)nausea / (+)osmophobia / (-)autonomic sx - Positional?: Little better laying - Improves with: Laying down in a dark quiet room - Triggers: n/a - Family Hx: 2 sisters, niece, mom Current preventive: n/a Current abortive: Excedrin (somewhat helpful, maybe every other) Previous preventives: For FM she has tried gabapentin, duloxetine, pregabalin but had side effects to each mostly GI Previous abortives: Some medication from her PCP didn't help but she doesn't recall what it was She has had memory difficulty. Will forget to do things, has forgotten to pay bills, forgotten to add detergent to laundry, will go into a room and forget why. Will be driving and then pass where she is going and forget where she is going. Knees and ankles will give out on her. Loses her balance sometimes. Her body is in constant pain. She has tried many medicines but always gets sick to her stomach. Can barely eat but then is still gaining weight. When she looks up she gets dizziness. She has always had balance problems even as a kid. Sleep is terrible. Wakes up often. Can't get comfortable, just bought a new mattress. Pain certainly contributes. Has never been able to sleep well even when she was little. She has depression and anxiety. She is on fluoxetine, maybe helping a little bit. Had seen a psychiatrist in the past, then lost insurance, then pandemic, but would be open to going back. Currently getting fluoxetine from her negative notcher. She had an emergency hysterectomy 04/2020. Having problems with her bowels and bladder. Medications: Current Outpatient Medications Medication Sig Dispense Refill - FLUoxetine HCl (PROZAC) 40 mg capsule Take 40 mg by mouth once daily. No current facility-administered medications for this visit. ROS ROS: Her ROS was positive for that mentioned in the HPI. Otherwise a 10-point ROS was completed and was negative. ALLERGIES Allergen Reactions - Codeine GI Upset Past Medical History: PAST MEDICAL HISTORY Diagnosis Date - Anxiety - Depression - Fibromyalgia - Insomnia Family History: FAMILY HISTORY Problem Relation Age of Onset - Colon Cancer Mother - Heart Attack Brother Mom had some kind of neurologic condition but never formally diagnosed Multiple family members with migraine see HPI Social History: Social History Tobacco Use - Smoking status: Never Smoker - Smokeless tobacco: Never Used Substance Use Topics - Alcohol use: No - Drug use: No HS + 1/2 year of college Lives with her No tob, etoh, or drugs 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 Head: Normocephalic, no masses, lesions, tenderness or abnormalities Neck: Supple Heart: RRR Peripheral Pulses: Normal Neurologic Examination Mental Status: She is alert. She is fully oriented. Attention is intact. Recent and remote memory is intact. Language shows normal comprehension and fluency. Affect is flat. MOCA - Education: 12.5 + 1. Visuospatial / executive: /5. Namin/3. Attention: 11/17. Language: 07/17. Abstraction: /. Delayed recall: 11/16. Orientation: 12/18. Total: 28/30 Cranial Nerves: Pupils are equal and reactive to light. Extraocular movements show full and smooth pursuits. No nystagmus. Funduscopic exam shows sharp optic discs and normal vasculature. Visual brantley are full to confrontation. Facial sensation is intact. Facial activation is symmetric. Hearing is intact to conversation. There is no hypomimia. There is no hypophonia. There is no dysarthria. Tongue is (more content not included)... Normal [facility] Maria Elena 11-09-2020 TEEN Telephone ([employer]) -------- ENMA HAWLEY ([id number]) 1975 F Date Time Provider Department 11/09/20 LEONILA MIRZA During your visit today, we recorded the following information about you: Shashank Wanda [place] Ppg 11/09/2020 11:17 AM Signed LVM for patient to schedule w/ Dr. Mirza. DX: insomnia, memory loss, difficulty with speech. Shashank Wanda [place] Ppg 11/10/2020 1:40 PM Signed Second VM for patient to schedule has been left. I will try tomorrow. Allergies As of Date: 11/09/2020 Noted Allergy Reaction CODEINE 06/17/2017 8 - GI Upset Date Reviewed: 11/04/2020 Reviewed by: Jos Luke - Fully Assessed Reason for Visit: Scheduling [3921] Cmt: New Referral Prescriptions as of 11/09/2020 Sig: FLUOXETINE 40 MG CAPSULE Take 40 mg by mouth once franklin* Problem List As Of Date 11/09/2020 Noted Resolved HYPERTROPHY OF BREAST [N62] 02/21/2005 Fibromyalgia [M79.7] Encounter Status:Closed by WANDA FOOD DEMONSTRATOR PPGSHASHANK on 11/09/20 Normal [facility] CBC W Auto Differential pane l (Bld)on 11-04-2020 Basophils (Bld) [#/Vol] 10*3/uL Normal <0.11 [facility] Comment on above: Order Comment: Speci men Type: BLOOD SPECIMEN Performed By: #### 5 7021-8 ####[facility]IA [id number] [place] [address] Basophils/100 WBC (Bld) 0.3 % Normal [facility] Comment on above: Order Comment: Speci men Type: BLOOD SPECIMEN Performed By: #### 5 7021-8 ####[facility]ORYCLIA [id number] [place] [address] Differential cell count method Nom (Bld) Auto Normal [facility] Comment on above: Order Comment: Speci men Type: BLOOD SPECIMEN Performed By: #### 5 7021-8 ####[facility]ORYCLIA [id number] [place] [address] Eosinophils (Bld) [#/Vol] 0.24 10*3/uL Normal <0.46 [facility] Comment on above: Order Comment: Speci men Type: BLOOD SPECIMEN Performed By: #### 5 7021-8 ####[facility] [id number] [place] [address] Eosinophils/100 WBC (Bld) 4.1 % Normal [facility] Comment on above: Order Comment: Speci men Type: BLOOD SPECIMEN Performed By: #### 5 7021-8 ####[facility] [id number] [place] [address] Erythrocyte distribution width (RBC) [Ratio] 12.9 % Normal 11.5-15.0 [facility] Comment on above: Order Comment: Speci men Type: BLOOD SPECIMEN Performed By: #### 5 7021-8 ####[facility] [id number] [place] [address] Hematocrit (Bld) [Volume fraction] 41.2 % Normal 36.0-46.0 [facility] Comment on above: Order Comment: Speci men Type: BLOOD SPECIMEN Performed By: #### 5 7021-8 ####[facility] [id number] [place] [address] Hemoglobin (Bld) [Mass/Vol] 13.4 g/dL Normal 11.5-15.5 [facility] Comment on above: Order Comment: Speci men Type: BLOOD SPECIMEN Performed By: #### 5 7021-8 ####[facility] [id number] [place] [address] IMMATURE GRAN % 0.2 % Normal [facility] Comment on above: Order Comment: Speci men Type: BLOOD SPECIMEN Performed By: #### 5 7021-8 ####[facility] [id number] [place] [address] IMMATURE GRAN ABS <0.03 Normal <0.10 [facility] Comment on above: Order Comment: Speci men Type: BLOOD SPECIMEN Performed By: #### 5 7021-8 ####[facility] [id number] [place] [address] Lymphocytes (Bld) [#/Vol] 1.85 10*3/uL Normal 1.00-4.00 [facility] Comment on above: Order Comment: Speci men Type: BLOOD SPECIMEN Performed By: #### 5 7021-8 ####[facility]ORYCLIA [id number] [place] [address] Lymphocytes/100 WBC (Bld) 31.8 % Normal [facility] Comment on above: Order Comment: Speci men Type: BLOOD SPECIMEN Performed By: #### 5 7021-8 ####[facility]ORYCLIA [id number] [place] [address] MCH (RBC) [Entitic mass] 30.9 pg Normal 26.0-34.0 [facility] Comment on above: Order Comment: Speci men Type: BLOOD SPECIMEN Performed By: #### 5 7021-8 ####[facility]ORYCLIA [id number] [place] [address] MCHC (RBC) [Mass/Vol] 32.5 g/dL Normal 30.5-36.0 [facility] Comment on above: Order Comment: Speci men Type: BLOOD SPECIMEN Performed By: #### 5 7021-8 ####[facility]ORYCLIA [id number] [place] [address] MCV (RBC) [Entitic vol] 94.9 fL Normal 80.0-100.0 [facility] Comment on above: Order Comment: Speci men Type: BLOOD SPECIMEN Performed By: #### 5 7021-8 ####[facility] [id number] [place] [address] Monocytes (Bld) [#/Vol] 0.37 10*3/uL Normal <0.87 [facility] Comment on above: Order Comment: Speci men Type: BLOOD SPECIMEN Performed By: #### 5 7021-8 ####[facility]IA [id number] [place] [address] Monocytes/100 WBC (Bld) 6.4 % Normal [facility] Comment on above: Order Comment: Speci men Type: BLOOD SPECIMEN Performed By: #### 5 7021-8 ####[facility]IA [id number] [place] [address] Neutrophils (Bld) [#/Vol] 3.32 10*3/uL Normal 1.45-7.50 [facility] Comment on above: Order Comment: Speci men Type: BLOOD SPECIMEN Performed By: #### 5 7021-8 ####[facility] [id number] [place] [address] Neutrophils/100 WBC (Bld) 57.2 % Normal [facility] Comment on above: Order Comment: Speci men Type: BLOOD SPECIMEN Performed By: #### 5 7021-8 ####[facility]IA [id number] [place] [address] Nucleated RBC (Bld) [#/Vol] 10*3/uL Normal <0.01 [facility] Comment on above: Order Comment: Speci men Type: BLOOD SPECIMEN Performed By: #### 5 7021-8 ####[facility]IA [id number] [place] [address] Nucleated RBC/100 WBC (Bld) [Ratio] 0.0 /100 WBC Normal 0.0 [facility] Comment on above: Order Comment: Speci men Type: BLOOD SPECIMEN Performed By: #### 5 7021-8 ####[facility]CLIA [id number] [place] [address] Platelet mean volume (Bld) [Entitic vol] 10.6 fL Normal 9.0-12.7 [facility] Comment on above: Order Comment: Speci men Type: BLOOD SPECIMEN Performed By: #### 5 7021-8 ####[facility]ORYCLIA [id number] [place] [address] Platelets (Bld) [#/Vol] 287 10*3/uL Normal 150-400 [facility] Comment on above: Order Comment: Speci men Type: BLOOD SPECIMEN Performed By: #### 5 7021-8 ####[facility]ORYCLIA [id number] [place] [address] RBC (Bld) [#/Vol] 4.34 10*6/uL Normal 3.90-5.20 [facility] Comment on above: Order Comment: Speci men Type: BLOOD SPECIMEN Performed By: #### 5 7021-8 ####[facility]ORYCLIA [id number] [place] [address] WBC (Bld) [#/Vol] 5.81 10*3/uL Normal 3.70-11.00 [facility] Comment on above: Order Comment: Speci men Type: BLOOD SPECIMEN Performed By: #### 5 7021-8 ####[facility]ATORYCLIA [id number] [place] [address] CNOVon 11-04-2020 CNOV Office Visit (NEVA DANIELS) -------- ENMA HAWLEY ([id number]) 1975 F Date Time Provider Department 11/04/20 10:20 AM JOS LUKE During your visit today, we recorded the following information about you: Temperature Pulse Blood pressure Weight 98.7 degrees 95/minute 117/80 83.9 kg Height 1.524 m Jos Luke MD 11/04/2020 10:30 AM Signed Subjective HPI: 45-year-old pleasant lady with generalized chronic pain, hypermobility is here for follow-up. She has a history of fibromyalgia and has failed multiple medications. Her pain today is 6/10 all over especially neck, shoulders, hands, top of left foot. She has no swelling. Stiffness is all day but worse for 4 to 5 hours in the morning. She was recommended physical therapy but has not been able to go-she did physical therapy in 2018 without much response. She describes headaches, memory loss, some problems with speech intermittently. She has excessive fatigue. She has trouble sleeping at night. She has been recommended sleep study but has not been able to go. She had a hysterectomy in April 2020. She has failed multiple NSAIDs. She has failed gabapentin, Cymbalta, Lyrica, ibuprofen. She continues to describe fatigue. She has insomnia. New patient visit August 24, 2019 Enma Hawley is a 44 year old female who presents with generalized chronic pain is here for evaluation. She's been diagnosed with fibromyalgia by her PCP but has failed multiple medications. Her pain is 6/10 all over especially shoulders, back, hips and knees. She has no swelling. Stiffness can be worse in the morning and sometimes last 4-5 hours area she's had the symptoms at least since 2007. She has tried physical therapy and water therapy in 2018? But didn't see much improvement. She's tried various NSAIDs without much improvement. She takes ibuprofen without any relief. NSAIDs also upset her stomach. She has tried gabapentin, Cymbalta, Lyrica but has had trouble tolerating all these medications. She hasn't had any blood work recently. She describes dry mouth but no dry eyes. She denies any raynauds. She's noticed a itchy rash underneath her left breast for which she uses cortisone but has not seen a trench pipe layer for it. She denies any other rashes. She denies any family history of autoimmune disease. PAST MEDICAL HISTORY Diagnosis Date - Fibromyalgia diag by pcp PAST SURGICAL HISTORY Procedure Laterality Date - BREAST REDUCTION - SECTION HX - CHOLECYSTECTOMY Health Maintenance Procedures DEPRESSION SCREENING Completed HIV SCREENING Completed DTAP,TDAP,TD(1 - Tdap) Completed PAP TESTING Completed HPV TESTING Completed MAMMOGRAM Completed LIPID SCREEN Completed Discussed health maintenance, including regular aerobic exercise, low fat diet, and periodic exams. Health Maintenance Immunizations Given Immunizations: There is no immunization history on file for this patient. Current Outpatient Medications Medication Sig - FLUoxetine HCl (PROZAC) 40 mg capsule Take 40 mg by mouth once daily. No current facility-administered medications for this visit. ALLERGIES Allergen Reactions - Codeine GI Upset FAMILY HISTORY Problem Relation Age of Onset - Colon Cancer Mother - Heart Attack Brother Social History Tobacco Use - Smoking status: Never Smoker - Smokeless tobacco: Never Used Substance Use Topics - Alcohol use: No - Drug use: No History Review: I have reviewed and modified as needed, the following during this visit: Allergies, Past Medical History, Past Surgical History, Past Family History, Past Social History. Review of Systems CONSTITUTIONAL: Recent Weight Gain: no Recent Weight Loss: No Fatigue: Yes Weakness: no Fever: No EYES: Pain: no Redness: No Loss of vision: No Double or blurred vision: No Dryness: No Feels like something in eye: no Itching eyes: no [id number]-THROAT: Ringing in ears:no Loss of hearing: No Nosebleeds: No Loss of smell: No Dryness in nose: Yes Runny Nose: No Sore tongue: No Bleeding gums: No Sores in mouth: No Loss of taste: No Dryness of mouth: Yes Frequent sore throats: no Hoarseness: Yes Difficulty in swallowing: No CARDIOVASCULAR: Pain in chest: No Irregular heart beat: Yes Sudden changes in heart beat: No High blood pressure: No Heart murmurs: No RESPIRATORY: Shortness of breath:no Difficulty in breathing at night: No Swollen legs or feet: No Cough: No Cough of blood: No Wheezing (asthma): No GASTROINTESTINAL: Nausea: Yes Vomiting of blood or coffee ground material: No Stomach pain relieved by food or milk: No Jaundice: No Increasing constipation: No Persistent diarrhea: No Blood in stools: No Black stools: No Heartburn: Yes GENITOURINARY: Difficult urination: No Pain or burning on urination: No Blood in (more content not included)... [facility] 11[facility]04[facility]2020 [facility] Telephone ([facility] ) -------- ENMA HAWLEY ([id number]) 1975 F Date Time Provider Department 11/04/20 JOS LUKE During your visit today, we recorded the following information about you: Linda Rodriguez [employer] 11/04/2020 1:30 PM Signed Internal referral #[id number] Neurology Linda Rodriguez [place] Linda Rodriguez [place] 11/17/2020 4:26 PM Signed Allergies As of Date: 11/04/2020 Noted Allergy Reaction CODEINE 06/17/2017 8 - GI Upset Date Reviewed: 11/04/2020 Reviewed by: Jos Luke - Fully Assessed Reason for Visit: Initial Consult [665] Cmt: neurology Prescriptions as of 11/04/2020 Sig: FLUOXETINE 40 MG CAPSULE Take 40 mg by mouth once franklin* Problem List As Of Date 11/04/2020 Noted Resolved HYPERTROPHY OF BREAST [N62] 02/21/2005 Fibromyalgia [M79.7] Encounter Status:Closed by SHEKHAR FOOD DEMONSTRATORLINDA on 11/04/20 Normal [facility] CRP SerPl-mCncon 11-04-2020 CRP [Mass/Vol] mg/L Normal <0.9 [facility] Comment on above: Order Comment: Speci men Type: BLOOD SPECIMEN Performed By: #### 2 4322-8, 1987-11, 3015-09 #### [facility] CLIA [id number] [address] [place] [address] Comprehensive metabolic 2000 panelon 11-04-2020 Albumin [Mass/Vol] 4.5 g/dL Normal 3.9-4.9 [facility] Comment on above: Order Comment: Speci men Type: BLOOD SPECIMEN Performed By: #### 2 4323-02, 1987-11, 3015-09 #### [facility] CLIA [id number] [address] [place] [address] ALP [Catalytic activity/Vol] 55 U/L Normal 34-123 [facility] Comment on above: Order Comment: Speci men Type: BLOOD SPECIMEN Performed By: #### 2 4322-8, 1987-11, 3015-09 #### [facility] CLIA [id number] [address] [place] [address] ALT With P-5'-P [Catalytic activity/Vol] 18 U/L Normal 7-38 [facility] Comment on above: Order Comment: Speci men Type: BLOOD SPECIMEN Performed By: #### 2 4322-8, 1987-11, 3015-09 #### [facility] CLIA [id number] [address] [place] [address] Anion gap [Moles/Vol] 8 mmol/L Low 9-18 [facility] Comment on above: Order Comment: Speci men Type: BLOOD SPECIMEN Performed By: #### 2 4323-02, 1987-11, 3015-09 #### [facility] CLIA [id number] [address] [place] [address] AST With P-5'-P [Catalytic activity/Vol] 21 U/L Normal 13-35 [facility] Comment on above: Order Comment: Speci men Type: BLOOD SPECIMEN Performed By: #### 2 4323-02, 1987-11, 3015-09 #### [facility] CLIA [id number] [address] [place] [address] Bilirubin [Mass/Vol] 0.7 mg/dL Normal 0.2-1.3 [facility] Comment on above: Order Comment: Speci men Type: BLOOD SPECIMEN Performed By: #### 2 4323-02, 1987-11, 3015-09 #### [facility] CLIA [id number] [address] [place] [address] Calcium [Mass/Vol] 9.2 mg/dL Normal 8.5-10.2 [facility] Comment on above: Order Comment: Speci men Type: BLOOD SPECIMEN Performed By: #### 2 4323-02, 1987-11, 3015-09 #### [facility] CLIA [id number] [address] [place] [address] Chloride [Moles/Vol] 104 mmol/L Normal 97-105 [facility] Comment on above: Order Comment: Speci men Type: BLOOD SPECIMEN Performed By: #### 2 4323-02, 1987-11, 3015-09 #### [facility] CLIA [id number] [address] [place] [address] CO2 [Moles/Vol] 28 mmol/L Normal 22-30 [facility] Comment on above: Order Comment: Speci men Type: BLOOD SPECIMEN Performed By: #### 2 4323-02, 1987-11, 3015-09 #### [facility] CLIA [id number] [address] [place] [address] Creatinine [Mass/Vol] 0.78 mg/dL Normal 0.58-0.96 [facility] Comment on above: Order Comment: Speci men Type: BLOOD SPECIMEN Performed By: #### 2 4323-8, 1987-11, 3015-09 #### [facility] CLIA [id number] [address] [place] [address] GFR/1.73 sq M.predicted MDRD (S/P/Bld) [Vol rate/Area] mL/min/{1.73_m2} Normal [facility] Comment on above: Order Comment: Speci men Type: BLOOD SPECIMEN Result Comment: >60 eGFR (Estimated GFR) Units of measure: mL/min/1.73 meters squared eGFR is derived from the reexpressed MDRD Study equation using the following parameters: serum creatinine, age, gender and race. The creatinine assay has been calibrated to be traceable to IDMS. An eGFR <60 mL/min/1.73m2 for >3 months is consistent with chronic kidney disease. Refer to KDOQI guidelines for clinical interpretation. In patients with unstable renal function, e.g. those with acute kidney injury, the eGFR may not accurately reflect actual GFR. Performed By: #### 2 4323-8, 1987-11, 3015-09 #### [facility] CLIA [id number] [address] [place] [address] Glucose [Mass/Vol] 88 mg/dL Normal 74-99 [facility] Comment on above: Order Comment: Speci men Type: BLOOD SPECIMEN Result Comment: The [place] Diabetes [employer] (ADA) provides guidance for cutoff values for fasting glucose and random glucose. The ADA defines fasting as no caloric intake for at least 8 hours. Fasting plasma glucose results between 100 to 125 mg/dL indicate increased risk for diabetes (prediabetes). Fasting plasma glucose results greater than or equal to 126 mg/dL meet the criteria for diagnosis of diabetes. In the absence of unequivocal hyperglycemia, results should be confirmed by repeat testing. In a patient with classic symptoms of hyperglycemia or hyperglycemic crisis, random plasma glucose results greater than or equal to 200 mg/dL meet the criteria for diagnosis of diabetes. Reference: Standards of Medical Care in Diabetes 2016, [place] [employer]. Diabetes Care. 2016.39(Suppl 1). Performed By: #### 2 4328, 1987-11, 3015-09 #### [facility] CLIA [id number] [address] [place] [address] Potassium [Moles/Vol] 3.9 mmol/L Normal 3.7-5.1 [facility] Comment on above: Order Comment: Speci men Type: BLOOD SPECIMEN Performed By: #### 2 8, 1987-11, 3015-09 #### [facility] CLIA [id number] [address] [place] [address] Protein [Mass/Vol] 7.1 g/dL Normal 6.3-8.0 [facility] Comment on above: Order Comment: Speci men Type: BLOOD SPECIMEN Performed By: #### 2 4323-02, 1987-11, 3015-09 #### [facility] CLIA [id number] [address] [place] [address] Sodium [Moles/Vol] 140 mmol/L Normal 136-144 [facility] Comment on above: Order Comment: Speci men Type: BLOOD SPECIMEN Performed By: #### 2 4323-02, 1987-11, 3015-09 #### [facility] CLIA [id number] [address] [place] [address] Urea nitrogen [Mass/Vol] 17 mg/dL Normal 7-21 [facility] Comment on above: Order Comment: Speci men Type: BLOOD SPECIMEN Performed By: #### 2 8, 1987-11, 3015-09 #### [facility] CLIA [id number] [address] [place] [address] ESR Westergren method (Bld) [Velocity]on 11-04-2020 ESR (Bld) [Velocity] 12 mm/h Normal 0-20 [facility] Comment on above: Order Comment: Speci men Type: BLOOD SPECIMEN Performed By: #### 4 537-7 #### [facility] CLIA [id number] [address] [place] [address] HLA-B27 PCRon 11-04-2020 HLA-B27 DNA RESULT Negative Normal [facility] Comment on above: Order Comment: Speci men Type: BLOOD SPECIMEN Result Comment: HLA- B27 is strongly associated with ankylosing spondylitis (). HLA-B27 is also associated with other seronegative arthropathies such as Alyson syndrome and psoriatic arthritis as well as extra-articular diseases such as anterior uveitis and inflammatory bowel disease. Greater than 90% of patients with are HLA-B27 positive. The frequency of HLA-B27 varies by ethnic group but generally <10 % in most [place] populations. HLA-B27 associated susceptibility to varies by population and HLA-B27 alleles detected. Some alleles such as B27:05 are associated with high susceptibility while others such B27:06 and B27:09 are associated with low susceptibility. HLA-B27 allele typing is recommended in HLA-B27 positive cases. HLA typing performed by PCR-RSSOP and/or SBT. This test was developed and its performance characteristics determined by [facility]. The test has not been cleared or approved by the [place] FDA. However, FDA approval was not necessary since this lab is certified under CLIA for high complexity testing. Test performed by: [facility], [address] [address] CLIA [id number] Performed By: #### B 27PCR #### [facility] CLIA [id number] [address] [place] [address] [facility]2020 TSH Qn 2.510 m[IU]/L Normal 0.270-4.200 [facility] Comment on above: Order Comment: Speci men Type: BLOOD SPECIMEN Result Comment: If t he patient is , TSH reference range varies by gestational period: First Trimester (weeks 9-12): 0.180-2.990 mcIU/mL Second Trimester: 0.110-3.980 mcIU/mL Third Trimester: 0.480-4.710 mcIU/mL Ángel Melgar et al. A Practical Approach for the Verifications and Determination of Site- and Trimester-Specific Reference Intervals for Thyroid Function tests in . Thyroid, 2019:29:3:412-420. Jacob Riddle, et al. 2017 Guidelines of the [place] [employer] for the Diagnosis and Management of Thyroid Disease during and the . Thyroid, 2017:27:3:315-389. Performed By: #### 2 4323-8, 1988-5, 3016-3 #### [facility] CLIA [id number] [address] [place] [address] XR CERVICAL 2V AP/LATon 10-14 XR CERVICAL 2V AP/LAT * * *Final Report* * * DATE OF EXAM: Nov 04 2020 10:51AM ANX 5308 - XR CERVICAL 2V AP/LAT / PROCEDURE REASON: multiple diagnoses * * * * Physician Interpretation * * * * EXAM TITLE: XR CERVICAL 2V AP/LAT DATE: 11/04/2020 COMPARISON: None. CLINICAL INDICATION/HISTORY: Chronic neck pain TECHNIQUE: AP, lateral and odontoid views of the cervical spine are presented. RESULT: No fractures or subluxations are noted, straightening of the normal cervical lordosis. The disc spaces are well preserved. There is no significant osteophyte formation. The prevertebral soft tissues are normal. IMPRESSION: Nonspecific straightening of the normal cervical lordosis. Otherwise, negative cervical spine. No significant spondylosis. Drawing Box Tender: PSCB Transcribe Date/Time: Nov 04 2020 12:38P Dictated by : KAREN BERMUDEZ MD This examination was interpreted and the report reviewed and electronically signed by: KAREN BERMUDEZ MD on Nov 04 2020 12:41PM EST [id number] Normal [facility] XR LUMBAR 2V AP/LATon 2020 XR LUMBAR 2V AP/LAT * * *Final Report* * * DATE OF EXAM: Nov 04 2020 10:51AM ANX 5229 - XR LUMBAR 2V AP/LAT / PROCEDURE REASON: multiple diagnoses * * * * Physician Interpretation * * * * EXAM TITLE: XR LUMBAR 2V AP/LAT, XR SI JTS 2V AP PELV/HINOJOSA DATE: 11/04/2020 COMPARISON: None. CLINICAL INDICATION/HISTORY: The patient presents with chronic low back pain. TECHNIQUE: AP, lateral and cone down lateral views of the lumbar spine are presented. AP and Hinojosa views of the sacroiliac joints. RESULT: There are five wdy-fuy-leqbqcn lumbar vertebra. No fracture or subluxations are noted. The disc spaces are well preserved. There is no significant osteophyte formation. Sacroiliac joints are symmetric. No ankylosis, sclerosis, or erosive changes. The osseous sacrum is intact. Hip joint spaces are well preserved. Right upper quadrant surgical clips. IMPRESSION: Negative lumbar spine. Negative sacroiliac joints. Drawing Box Tender: CARLOS Transcribe Date/Time: Nov 04 2020 12:41P Dictated by : KAREN BERMUDEZ MD This examination was interpreted and the report reviewed and electronically signed by: KAREN BERMUDEZ MD on Nov 04 2020 12:45PM EST [id number] Normal [facility] XR SI JTS 2V AP PELV/FERGUSO Non 11-04-2020 XR SI JTS 2V AP PELV/HINOJOSA * * *Final Report* * * DATE OF EXAM: Nov 04 2020 10:51AM ANX 5245 - XR SI JTS 2V AP PELV/HINOJOSA / PROCEDURE REASON: multiple diagnoses * * * * Physician Interpretation * * * * EXAM TITLE: XR LUMBAR 2V AP/LAT, XR SI JTS 2V AP PELV/HINOJOSA DATE: 11/04/2020 COMPARISON: None. CLINICAL INDICATION/HISTORY: The patient presents with chronic low back pain. TECHNIQUE: AP, lateral and cone down lateral views of the lumbar spine are presented. AP and Hinojosa views of the sacroiliac joints. RESULT: There are five ayk-xka-ipuzrhq lumbar vertebra. No fracture or subluxations are noted. The disc spaces are well preserved. There is no significant osteophyte formation. Sacroiliac joints are symmetric. No ankylosis, sclerosis, or erosive changes. The osseous sacrum is intact. Hip joint spaces are well preserved. Right upper quadrant surgical clips. IMPRESSION: Negative lumbar spine. Negative sacroiliac joints. Drawing Box Tender: [facility] Transcribe Date/Time: Nov 04 2020 12:41P Dictated by : KAREN BERMUDEZ MD This examination was interpreted and the report reviewed and electronically signed by: KAREN BERMUDEZ MD on Nov 04 2020 12:45PM EST [id number] Normal [facility] HLA-B27 TYPINGon 05-17-2020 HLA-B27 TYPING Negative Normal [facility] Comment on above: Result Comment: This test was developed without FDA review. The test performance characteristics were defined and validated by the [facility] Department of Pathology, under the accreditation guidelines of [facility]. Performed By: #### H LB27 #### [facility] [address] [place] [address] C-REACTIVE PROTEINon 020 CRP [Mass/Vol] 0.16 mg/dL Normal [facility] Comment on above: Result Comment: REF VALUE < 1.00 Performed By: #### C RP #### [address] [address] SEDIMENTATION RATE, ERYTHROC YTEon 05-14-2020 SEDIMENTATION RATE, ERYTHROCYTE 12 mm/h Normal 0 - 20 [facility] Comment on above: Performed By: #### E SRWS #### [address] [address] Provider Note - ED v2on 09-12 Provider Note - ED v2 Provider Note - ED v2: Chart Review: ED NOTES ED NOTES: ====HPI==== Patient states that she has a history of fibromyalgia as well as a torn right MCL. She states yesterday she noticed she was having pain and swelling to her right leg with no injury. She states that she's been resting the area and icing and taking aspirin with no symptom improvement. She reports that she called her sister who advised her that with the unilateral swelling she should come in for evaluation. The patient denies any chest pain or shortness of breath. She denies any recent surgery travel or history of DVT/PE Character: Severity: Mild to moderate Exacerbated by: Nothing Improved by: Nothing Recently seen by: Denies ====Review of Systems==== 10 point system review is negative except for those specifically mentioned in history of present illness ====Physical Exam==== Constitutional/General: Alert and conversant, well appearing, nontoxic, and in NAD. Head: Normocephalic and atraumatic. Eyes: SANJUANA, conjunctive normal, sclera nonicteric, subconjunctival layer is pink. Mouth: handling secretions, no trismus, moist mucous membranes Neck: Supple, full ROM, no stridor, no crepitus, no meningeal signs. Trachea at midline. Respiratory: not in respiratory distress. Lungs are clear to auscultation Chest: normal chest movement GI: nondistended Musculoskeletal: Moves all extremities, warm and well perfused. Right lower extremity is neurovascularly intact. Capillary refill less than 3 seconds. The right lower leg is asymmetrically swollen compared to the left with swelling extending from just above the ankle to mid thigh. There is no redness or warmth no bony deformity or joint effusion and the edema is nonpitting. Patient does have pain with palpation of the right posterior calf. Integument: Skin warm and dry, no rashes. Neurologic: GCS 15, no focal deficits Psychiatric: Nervous/anxious affect. ====ED Course and Medical Decision Making==== Patient arrived in no acute distress with stable room air pulse ox and no chest pain or shortness of breath. She had no risk factors for DVT/PE both the asymmetrically swollen right leg there is concern for this. I cannot perform and venous duplex at this time of night and therefore should be given Lovenox to protect her in case she does have a DVT an outpatient ultrasound to be done at 7:30 on Saturday morning. However at this time as she does not have chest pain or shortness of breath or any signs or respiratory distress she can be discharged home Portions of this note were dictated by speech recognition. An attempt at proof reading was made to minimize errors. Minor errors in manager of case management may be present. Please call if questions.. HISTORY OF PRESENTING ILLNESS ENMA is a 44 year old Female and was seen by me at 25-Sep-2019 00:00 for a chief complaint of lower leg pain/injury (Patient c/o right thigh pain and warmth since yesterday and my lower leg has been burning and tingling. Palpable dorsalis pedal pulse on right foot, foot pink but cool. Patient tore MCL in 2008.)(1). Triage Information: Most recent Vital Sign Value Date Heart Rate (beats/min): 102 09-24-2019 22:27 Respirations (breaths/min): 18 09-24-2019 22:27 SpO2 (%): 100 09-24-2019 22:27 BP Systolic (mm Hg): 100 09-24-2019 22:27 BP Diastolic (mm Hg): 62 09-24-2019 22:27 PAST MEDICAL HISTORY ATTESTATION: I have reviewed and confirmed nurse's/medic's notes for patient's medications, allergies, medical history, and surgical history ALLERGIES/INTOLERANCES: Allergy Allergen: No Known Allergies Type: Reaction: Intolerance Allergen: codeine Type: Drug Reaction: GI Upset Nausea/Vomiting HEALTH HISTORY: No documented data. OUTPATIENT MEDICATIONS: Home Medications Review Status for Reconciliation: N/A Med Status: N/A No documented data. SIGNIFICANT EVENTS: Past Medical History Description:Torn MCL Description:Fibromyalgia Description:Endometrosis Description:Kidney Stones Past Surgical History Description:Cholecystect cari FISHING HAND: Is : no(1) Is : no(1) CLINICAL IMPRESSION Diagnosis/Annotation: ED Dx Name:Edema of right lower extremity Code:R60.0 Dispostion: discharged Type: home ATTESTATION CRITICAL CARE TIME Is this a critically ill patient: no Electronic Signatures: Ankur Eaton () (Signed 25-Sep-2019 00:40) Authored: Provider Note - ED v2 Last Updated: 25-Sep-2019 00:40 by Ankur Eaton () References: 1. Data Referenced From Triage - ED 24-Sep-2019 22:27 Normal [facility] Risk Screen - Adult Emergenc yon 09-25-2019 Risk Screen - Adult Emergency Preferred Language: Preferred Language: Preferred Language for Discussing Health Care (patient/designee)Luis Alberto isabel Advanced Directives: Advance Directive/DNRno Advance Directive Information Givenpatient/family declined Family Violence Adult: Abuse Screen: Are you or have you been threatened or abused physically, emotionally, or sexually by anyoneno Learning Assessment (Patient): Learning Assessment (Patient): Patient is Able to be Assessed for Learningyes Factors Influencing Readiness to Learnanxiety Factors that Impact Ability to Learnnone Devices/Methods Used to Communicatenone Learning Preferencesindividual instruction; skill demonstration; verbal instruction Cultural Considerationsnone Developmental Considerationsnone Confucianist Considerationsnone Learning Assessment (Other Learner): Learning Assessment (Other Learner): Other learner availableyes... Learnerfamily Factors Influencing Readiness to Learninterest in learning Factors that Impact Ability to Learnnone Devices/Methods Used to Communicatenone Learning Preferencesindividual instruction, skill demonstration, verbal instruction Cultural Considerationsnone Developmental Considerationsnone Confucianist Considerationsnone Pressure Injury/TB/Substance: Pressure Injury: Pressure Injury Present on Admissionno Do you have a coughno Substance Use Current or Former Historynever: Cigarette/Tobacco, e-Cigarette/Vaping, Alcohol, Street Drugs Admission Risk Screen: Significant IndicatorsComplete CAGE: CAGE: Is this an injured patient at a Trauma Center ([facility]/[place] /[employer]/[place]): no Electronic Signatures: Felicia Richard (RN) (Signed 24-Sep-2019 22:35) Authored: Preferred Language, Advanced Directives, Family Violence Adult, Learning Assessment (Patient), Learning Assessment (Other Learner), Pressure Injury/TB/Substance, CAGE Last Updated: 24-Sep-2019 22:35 by Felicia Richard (RN) [facility] Triage - EDon 09-25-2019 Triage - ED Quick Triage: Are You no Are You Currently Breastfeedingno Chart Review: CHIEF COMPLAINT ENMA HAWLEY is a Female patient with a chief complaint of lower leg pain/injury (Patient c/o right thigh pain and warmth since yesterday and my lower leg has been burning and tingling. Palpable dorsalis pedal pulse on right foot, foot pink but cool. Patient tore [facility] in 2008.). Triage Date/Time: 24-Sep-2019 22:27 Pain Rating (0-10): 6 = Moderate Pain location: right thigh Vital Signs: Blood Pressure: 100/62 Mean: Heart Rate: 102 Respiratory Rate: 18 Pulse Oximetry: 100% on room air, no respiratory support. Weight: 178.5 pounds. Calculated 81.0 kg. (stated) Diane Coma Scale: Best Eye Response: (E4) spontaneous Best Motor Response: (M6) obeys commands Best Verbal Response: (V5) oriented [place] Score: 15 Patient has homicidal thoughts: no RACHEL: 3 Symptom Notes: . Symptoms Are POSITIVE For: difficulty walking, pain (describe) and decreased ROM. Symptoms Are Negative For: abrasion, bleeding, bruising, deformity, difficulty bending, numbness and tingling. Risk Screens Suicide Risk Screen In the Past Month: Have you wished you were or wished you could go to sleep and not wake up no In the Past Month: Have you had any actual thoughts of killing yourself no In Your Lifetime: Have you ever done anything, started to do anything, or prepared to do anything to end your life no Mckay Fall Scale Screening Has the patient fallen before (or is the patient in the ED as a result of a fall) has not had a fall Does the patient have an impaired gait does not have impaired gait Is the patient cognitively impaired not cognitively impaired Interventions: Mckay Fall Interventions: *LOW INTERVENTIONS PLUS: * falls risk band/sticker applied to patient, *yellow non-skid footwear, *instruct to call for assistance before getting out of bed, *bed/chair/bedside commode/toilet alarms, *sensory devices/ambulatory aides available and in reach, *medications reviewed for potential side effects and care planning. PAIN Pain Scale Used: TEJ Pain Rating (0-10): 6 = Moderate Past Medical History: Past Medical History Reviewedyes Cholecystectomy: Past Surgical History, Active Kidney Stones: Past Medical History, Active Endometrosis: Past Medical History, Active Fibromyalgia: Past Medical History, Active Torn MCL: Past Medical History, Active, 2008 Electronic Signatures: Felicia Richard (YONNY) (Signed 24-Sep-2019 22:36) Authored: Triage, Past Medical History Last Updated: 24-Sep-2019 22:36 by Felicia Richard (RN) Normal [facility] Venous Duplex Ultra sound DVTon 09-25-2019 [facility] [place]ous [place] [address] [phone], Vascular Lab Report Lower Venous Duplex Ultrasound Patient Name: ENMA Ruiz DEVAUGHN Reading Physician: [id number] Austin Musa MD Study Date: 09/25/2019 Referring Physician: Ankur Eaton DO MRN/PID: [id number] PCP: Accession/Order#: [id number] CC Report to: Date of : 1975 Technologist: Corrine Delgadillo RVT Gender: F Technologist 2: Admission Status: Outpatient Location Performed: [facility] Diagnosis/ICD: M79.604-Pain in right leg Procedure/CPT: 39925 Peripheral venous duplex scan for DVT Limited-[id number] Pertinent History: Leg pain. CONCLUSIONS: Right Lower Venous: No evidence of acute deep vein thrombus visualized in the right lower extremity. Left Lower Venous: Left common femoral vein is negative for deep vein thrombus. Imaging & Doppler Findings: Right Compress Thrombus Prox Thigh GSV Yes None SSV Prox Yes None Right Compressible Thrombus Flow CFV Yes None AUG PFV Yes None FV Proximal Yes None AUG FV Mid Yes None FV Distal Yes None Popliteal Yes None AUG Peroneal Yes None PTV Yes None Gastroc Yes Left Compress Thrombus Flow CFV Yes None FEB [address] Austin Musa MD Final Normal [facility] LEONIDES by IFA with Reflex (Rheu m)on 08-26-2019 LEONIDES by IFA with Reflex (Rheum) SEE BELOW Normal [facility] Comment on above: Result Comment: LEONIDES Negative NEGAT Normal range : negative at <1:80 serum dilution. Approximately 6% of patients with connective tissue diseases with low positive EIA values are negative by IFA. Recommend follow-up with specific antinuclear antibodies if clinically indicated. LEONIDES Titer Negative NEGAT Normal range : negative at <1:80 serum dilution. LEONIDES Pattern SEE BELOW Not applicable for negative result. Performing Laboratory: [facility] [place] [address] Performed By: #### E SR #### [place] [address] Anti-Streptolysin Oon 2019 Anti-Streptolysin O 74 IU/mL Normal <201 [facility] Comment on above: Result Comment: Perf orming Laboratory: [facility] [address] [place] [address] Performed By: #### E SR #### [place] [id number] CCP Antibody, IgGon 08-26-19 20 CCP Antibody, IgG <15 Normal <20 [facility] Comment on above: Result Comment: < 20 units: Negative 20-39 units: Weak Positive 40-59 units: Moderate Positive > 60 units: Strong Positive The following results were obtained with the [employer] QUANTA Lite CCP3 IgG JAROCHO. Anti-CCP values obtained with different manufacturers' assay methods may not be used interchangeably. The magnitude of the reported IgG levels cannot be correlated to an endpoint titer. Performing Laboratory: [facility] [place] [address] Performed By: #### E SR #### [facility] [address] [place] [address] Hep B Core Ab,Totalon 2019 Hep B Core Ab,Total Negative Normal NEGAT [facility] Comment on above: Result Comment: Perf orming Laboratory: [facility] [address] [place] [address] Performed By: #### E SR #### [facility] [address] [place] [address] Hep. B Surface Abon 08-25-19 20 Hep. B Surface Ab 3.7 mIU/mL Normal [facility] Comment on above: Result Comment: Hep B. Antibody < 10.0 mIU/mL is negative. Hep B. Antibody > or = 10.0 mIU/mL is positive. Performed By: #### E SR #### [place] [address] Hep. B Surface Agon 08-25-19 20 Hep.B Surface Ag Negative Normal Negative [facility] Comment on above: Performed By: #### H BSAG #### [place] [address] Hepatitis C Antibodyon 08-25 Hepatitis C Ab Negative Normal Negative [facility] Comment on above: Performed By: #### E SR #### [place] [address] CPKon 08-24-2019 CK [Catalytic activity/Vol] 77 U/L Normal 26-192 [facility] Comment on above: Performed By: #### C K #### [place] [address] CRPon 08-24-2019 CRP [Mass/Vol] mg/L Normal 0.00-0.30 [facility] Comment on above: Performed By: #### C RP3 #### [place] [address] Comprehensive Panelon 2019 ALP [Catalytic activity/Vol] 54 U/L Normal 45-117 [facility] Comment on above: Performed By: #### P 14 #### [place] [address] Bilirubin [Mass/Vol] 0.7 mg/dL Normal 0.2-1.0 [facility] Comment on above: Performed By: #### P 14 #### [facility] [address] [place], [place] [address] Creatinine [Mass/Vol] 0.62 mg/dL Normal 0.51-0.95 [facility] Comment on above: Result Comment: Use of this assay is not recommended for patients undergoing treatment with phenindione, due to the potential for falsely depressed results. Performed By: #### P 14 #### [facility] [address] [place], [place] [address] Protein [Mass/Vol] 7.3 g/dL Normal 6.4-8.2 [facility] Comment on above: Performed By: #### P 14 #### [facility] [address] [place] [address] ALT [Catalytic activity/Vol] 25 U/L Normal 12-78 [facility] Comment on above: Performed By: #### P 14 #### [facility] [address] [place] [address] AST [Catalytic activity/Vol] 17 U/L Normal 15-37 [facility] Comment on above: Performed By: #### P 14 #### [facility] [address] [place], [place] [address] Albumin [Mass/Vol] 3.9 g/dL Normal 3.4-5.0 [facility] Comment on above: Performed By: #### P 14 #### [facility] [address] [place], [place] [address] Anion gap [Moles/Vol] 8 mmol/L Normal 8-16 [facility] Comment on above: Performed By: #### P 14 #### [facility] [address] [place], [place] [address] Calcium [Mass/Vol] 8.8 mg/dL Normal 8.5-10.1 [facility] Comment on above: Performed By: #### P 14 #### [facility] [address] [place] [address] CO2 [Moles/Vol] 26 mmol/L Normal 21-32 [facility] Comment on above: Performed By: #### P 14 #### [facility] [address] [place] [address] Glucose [Mass/Vol] 97 mg/dL Normal 70-99 [facility] Comment on above: Performed By: #### P 14 #### [facility] [address] [place] [address] Urea nitrogen [Mass/Vol] 13 mg/dL Normal 7-18 [facility] Comment on above: Performed By: #### P 14 #### [facility] [address] [place] [address] Chloride [Moles/Vol] 109 mmol/L High 98-107 [facility] Comment on above: Performed By: #### P 14 #### [facility] [address] [place] [address] Potassium [Moles/Vol] 3.9 mmol/L Normal 3.5-5.1 [facility] Comment on above: Performed By: #### P 14 #### [facility] [address] [place] [address] Sodium [Moles/Vol] 139 mmol/L Normal 136-145 [facility] Comment on above: Performed By: #### P 14 #### [facility] [address] [place] [address] Hemogram/Diffon 08-24-2019 Abs Immature Grans 0.01 thou/cmm Normal 0.00-0.05 [facility] Comment on above: Performed By: #### C BCD1 #### [facility] [address] [place] [address] Abs Neut (ANC) 3.21 thou/cmm Normal 1.56-6.13 [facility] Comment on above: Performed By: #### C BCD1 #### [facility] [address] [place] [address] Abs. Baso 0.03 thou/cmm Normal 0.01-0.08 [facility] Comment on above: Performed By: #### C BCD1 #### [place] [address] Abs. [place] 0.26 thou/cmm Low 0.27-0.70 [facility] Comment on above: Performed By: #### C BCD1 #### [facility] [address] [place], [place] [address] Basophils/100 WBC (Bld) 0.6 % Normal [facility] Comment on above: Performed By: #### C BCD1 #### [facility] [address] [place], [place] [address] Eosinophils (Bld) [#/Vol] 0.15 thou/cmm Normal 0.00-0.31 [facility] Comment on above: Performed By: #### C BCD1 #### [facility] [address] [place], [place] [address] Eosinophils/100 WBC (Bld) 2.9 % Normal [facility] Comment on above: Performed By: #### C BCD1 #### [place] [address] Erythrocyte distribution width (RBC) [Ratio] 12.3 % Normal 11.7-14.4 [facility] Comment on above: Performed By: #### C BCD1 #### [address] [address] Hematocrit (Bld) [Volume fraction] 40.0 % Normal 34.1-44.9 [facility] Comment on above: Performed By: #### C BCD1 #### [address] [address] Hemoglobin (Bld) [Mass/Vol] 13.4 g/dL Normal 11.2-15.7 [facility] Comment on above: Performed By: #### C BCD1 #### [facility] [address] [place], [place] [address] Immature Grans 0.20 % Normal [facility] Comment on above: Performed By: #### C BCD1 #### [facility] [address] [place], [place] [address] Lymphocytes (Bld) [#/Vol] 1.48 thou/cmm Normal 1.18-3.74 [facility] Comment on above: Performed By: #### C BCD1 #### [facility] [address] [place], [place] [address] Lymphocytes/100 WBC (Bld) 28.8 % Normal [facility] Comment on above: Performed By: #### C BCD1 #### [facility] [address] [place], [place] [address] MCH (RBC) [Entitic mass] 31.2 pg Normal 25.6-32.2 [facility] Comment on above: Performed By: #### C BCD1 #### [facility] [address] [place], [place] [address] MCHC (RBC) [Mass/Vol] 33.5 % Normal 31.6-34.8 [facility] Comment on above: Performed By: #### C BCD1 #### [facility] [address] [place] [address] MCV (RBC) [Entitic vol] 93.2 fL Normal 79.4-94.8 [facility] Comment on above: Performed By: #### C BCD1 #### [facility] [address] [place] [address] Monocytes/100 WBC (Bld) 5.1 % Normal [facility] Comment on above: Performed By: #### C BCD1 #### [facility] [address] [place] [address] Platelet mean volume (Bld) [Entitic vol] 10.7 fL Normal 9.4-12.3 [facility] Comment on above: Performed By: #### C BCD1 #### [facility] [address] [place] [address] Platelets (Bld) [#/Vol] 283 thou/cmm Normal 182-369 [facility] Comment on above: Performed By: #### C BCD1 #### [facility] [address] [place], [place] [address] RBC (Bld) [#/Vol] 4.29 mil/cmm Normal 3.93-5.22 [facility] Comment on above: Performed By: #### C BCD1 #### [facility] [address] [place] [address] RDW SD 42.2 fl Normal 36.4-46.3 [facility] Comment on above: Performed By: #### C BCD1 #### [facility] [address] [place], [place] [address] Seg Neutrophil 62.4 % Normal [facility] Comment on above: Performed By: #### C BCD1 #### [place] [address] WBC (Bld) [#/Vol] 5.14 thou/cmm Normal 3.98-10.04 [facility] Comment on above: Performed By: #### C BCD1 #### [place] [address] MDRD GFRon 08-24-2019 GFR/1.73 sq M predicted among non-blacks MDRD (S/P/Bld) [Vol rate/Area] mL/min/{1.73_m2} Normal >60mL/min/1.73 m2 [facility] Comment on above: Result Comment: If t he patient is , multiply the result by 1.210. Performed By: #### G FR #### [place] [address] Rheumatoid Factoron 08-24-19 20 Rheumatoid Factor < 10.0 Normal 0.0-15.0 [facility] Comment on above: Performed By: #### R F1 #### [place] [address] Sed Rateon 08-24-2019 Sed Rate 9 mm/hr Normal 0-20 [facility] Comment on above: Performed By: #### E SR #### [place] [address] TSH Reflexon 08-24-2019 TSH Qn 1.480 uIU/mL Normal 0.358-3.740 [facility] Comment on above: Result Comment: Free T4 reflexed if TSH is less than or greater than the reference range. Performed By: #### T SHR #### [place] [address] Uric Acid Bloodon 08-24-2019 Uric Acid Blood 4.3 mg/dL Normal 2.6-6.0 [facility] Comment on above: Performed By: #### U HEAVENLY #### [facility] [address] [place] [address] MA Mamm Diag w/CAD if perf a nd 3D Bilon 03-19-2018 Bilirubin.direct [Mass/Vol] Exam Date/Time: 03/19/2018 13:56 EDT Reason for Exam: LEFT BREAST LUMP 3D/MARYCHUY;Lump Report STUDY: MA Mamm Diag w/CAD if perf and 3D Alden; 03/19/2018 1:56 pm ACCESSION NUMBER(S): [id number] ORDERING CLINICIAN: Mega Rivas INDICATION: Lump left breast. History bilateral breast reduction. COMPARISON: 08/10/2016 and 02/23/2015 FINDINGS: MAMMOGRAPHY: 2D and tomosynthesis images were reviewed at 1 mm slice thickness. The breast tissue is almost entirely fatty. No suspicious masses or calcifications are identified. No architectural distortion is seen on 3D tomosynthesis images. A triangular marker has been placed at the inferior portion of the left breast at the 6 o'clock position where the patient complains of a mass. No underlying abnormality is seen. No clustered microcalcifications are present. No axillary lymphadenopathy is seen. The skin thickness is normal. ULTRASOUND: The area of palpable thickening that the patient complains of in the left breast inferiorly was examined by ultrasound. There is no mass lesion seen. No architectural distortion is present. No dilated ducts are seen. IMPRESSION: No mammographic evidence of malignancy. No mass lesion seen at the 6 o'clock position of the left breast. BI-RADS CATEGORY: Category: 2 - Benign Finding. Recommendation: Normal Interval Follow-up, Over Age 40. Recall Interval: 12 Months. Breast Density: Fatty. Exam Date/Time: 03/19/2018 13:56 EDT Report For any future breast imaging appointments, please call [phone] ([phone]). FINAL REPORT Dictated: 03/19/2018 3:45 pm Reinaldo Perera MD Signed (Electronic Signature): 03/19/2018 3:45 pm Signed by: Reinaldo Perera MD Technologist: BHARGAV Assessment: BI-RADS Category 2-Benign finding Recommendation: Normal interval follow-up Normal [facility] US Breast Unilateral Lt Limi tedromana 03-19-2018 Breast Unilateral Lt Limited Exam Date/Time: 03/19/2018 14:15 EDT Reason for Exam: left breast lump;Breast lump Report STUDY: KELSEA Mamm Diag w/CAD if perf and 3D Alden; 03/19/2018 1:56 pm ACCESSION NUMBER(S): [id number] ORDERING CLINICIAN: Mega Rivas INDICATION: Lump left breast. History bilateral breast reduction. COMPARISON: 08/10/2016 and 02/23/2015 FINDINGS: MAMMOGRAPHY: 2D and tomosynthesis images were reviewed at 1 mm slice thickness. The breast tissue is almost entirely fatty. No suspicious masses or calcifications are identified. No architectural distortion is seen on 3D tomosynthesis images. A triangular marker has been placed at the inferior portion of the left breast at the 6 o'clock position where the patient complains of a mass. No underlying abnormality is seen. No clustered microcalcifications are present. No axillary lymphadenopathy is seen. The skin thickness is normal. ULTRASOUND: The area of palpable thickening that the patient complains of in the left breast inferiorly was examined by ultrasound. There is no mass lesion seen. No architectural distortion is present. No dilated ducts are seen. IMPRESSION: No mammographic evidence of malignancy. No mass lesion seen at the 6 o'clock position of the left breast. BI-RADS CATEGORY: Category: 2 - Benign Finding. Recommendation: Normal Interval Follow-up, Over Age 40. Recall Interval: 12 Months. Breast Density: Fatty. Exam Date/Time: 03/19/2018 14:15 EDT Report For any future breast imaging appointments, please call [phone] ([phone]). FINAL REPORT Dictated: 03/19/2018 3:45 pm Reinaldo Perera MD Signed (Electronic Signature): 03/19/2018 3:45 pm Signed by: Reinaldo Perera MD Technologist: JOSEPH Assessment: BI-RADS Category 2-Benign finding Recommendation: Normal interval follow-up Normal [facility] Vital Signs Date Time Vital Sign Value Performing Clinician Facility 11-15-2023 11:08-0400 Body mass index (BMI) [Ratio] 34.75 kg/m2 Mega Rivas MD Work Phone: [facility] 11-15-2023 11:08-0400 Body weight 82.06 kg Mega Rivas MD Work Phone: [facility] 11-15-2023 11:08-0400 Diastolic blood pressure 82 mm[Hg] Mega Rivas MD Work Phone: [facility] 11-15-2023 11:08-0400 Heart rate 77 /min Mega Rivas MD Work Phone: [facility] 11-15-2023 11:08-0400 SaO2% (BldA) [Mass fraction] 96 % Mega Rivas MD Work Phone: [facility] 11-15-2023 11:08-0400 Systolic blood pressure 118 mm[Hg] Mega Rivas MD Work Phone: [facility] 09-16-2023 14:28-0500 Body mass index (BMI) [Ratio] 33.81 kg/m2 Mega Rivas MD Work Phone: [facility] 09-16-2023 14:28-0500 Body temperature 100.2 [degF] Mega Rivas MD Work Phone: [facility] 09-16-2023 14:28-0500 Body weight 79.83 kg Mega Rivas MD Work Phone: [facility] 09-16-2023 14:28-0500 Diastolic blood pressure 72 mm[Hg] eMga Rivas MD Work Phone: [facility] 09-16-2023 14:28-0500 Heart rate 78 /min Mega Rivas MD Work Phone: [facility] 09-16-2023 14:28-0500 SaO2% (BldA) [Mass fraction] 96 % Mega Rivas MD Work Phone: [facility] 09-16-2023 14:28-0500 Systolic blood pressure 112 mm[Hg] Mega Rivas MD Work Phone: [facility] 08-19-2023 14:26-0500 Body mass index (BMI) [Ratio] 33.61 kg/m2 Mega Rivas MD Work Phone: [facility] 08-19-2023 14:26-0500 Body weight 79.38 kg Mega Rivas MD Work Phone: [facility] 08-19-2023 14:26-0500 Diastolic blood pressure 72 mm[Hg] Mega Rivas MD Work Phone: [facility] 08-19-2023 14:26-0500 Heart rate 85 /min Mega Rivas MD Work Phone: [facility] 08-19-2023 14:26-0500 SaO2% (BldA) [Mass fraction] 95 % Mega Rivas MD Work Phone: [facility] 08-19-2023 14:26-0500 Systolic blood pressure 116 mm[Hg] Mega Rivas MD Work Phone: [facility] 07-18-2023 13:27-0500 Body height 153.7 cm Mega Rivas MD Work Phone: [facility] 07-18-2023 13:27-0500 Body mass index (BMI) [Ratio] 33.81 kg/m2 Mega Rivas MD Work Phone: [facility] 07-18-2023 13:27-0500 Body weight 79.83 kg Mega Rivas MD Work Phone: [facility] 07-18-2023 13:27-0500 Diastolic blood pressure 80 mm[Hg] Mega Rivas MD Work Phone: [facility] 07-18-2023 13:27-0500 Heart rate 86 /min Mega Rivas MD Work Phone: [facility] 07-18-2023 13:27-0500 SaO2% (BldA) [Mass fraction] 97 % eMga Rivas MD Work Phone: [facility] 07-18-2023 13:27-0500 Systolic blood pressure 116 mm[Hg] Mega Rivas MD Work Phone: [facility] 05-27-2023 11:29-0500 Body mass index (BMI) [Ratio] 35.44 kg/m2 Mega Rivas MD Work Phone: [facility] 05-27-2023 11:29-0500 Body weight 83.01 kg Mega Rivas MD Work Phone: [facility] 05-27-2023 11:29-0500 Diastolic blood pressure 78 mm[Hg] Mega Rivas MD Work Phone: [facility] 05-27-2023 11:29-0500 Heart rate 71 /min Mega Rivas MD Work Phone: [facility] 05-27-2023 11:29-0500 SaO2% (BldA) [Mass fraction] 97 % Mega Rivas MD Work Phone: [facility] 05-27-2023 11:29-0500 Systolic blood pressure 122 mm[Hg] Mega Rivas MD Work Phone: [facility] 11-16-2022 10:26-0400 Body height 153 cm Mega Rivas MD Work Phone: [facility] 11-16-2022 10:26-0400 Body mass index (BMI) [Ratio] 36.02 kg/m2 Mega Rivas MD Work Phone: [facility] 11-16-2022 10:26-0400 Body weight 84.37 kg Mega Rivas MD Work Phone: [facility] 11-16-2022 10:26-0400 Diastolic blood pressure 72 mm[Hg] Mega Rivas MD Work Phone: [facility] 11-16-2022 10:26-0400 Heart rate 80 /min Mega Rivas MD Work Phone: [facility] 11-16-2022 10:26-0400 SaO2% (BldA) [Mass fraction] 96 % Mega Rivas MD Work Phone: [facility] 11-16-2022 10:26-0400 Systolic blood pressure 112 mm[Hg] Mega Rivas MD Work Phone: [facility] 05-11-2022 10:33-0400 Body height 152.4 cm Mega Rivas Work Phone: [facility] Work Phone: 05-11-2022 10:33-0400 Body mass index (BMI) [Ratio] 35.54 kg/m2 Mega Valeer Work Phone: [facility] Work Phone: 05-11-2022 10:33-0400 Body surface area Derived from formula 1.79 m2 Mega Sade Valeer Work Phone: [facility] Work Phone: 05-11-2022 10:33-0400 Body weight 82.56 kg Mega Valeer Work Phone: [facility] Work Phone: 05-11-2022 10:33-0400 Diastolic blood pressure 64 mm[Hg] Mega Sade CisnerosRivas Work Phone: [facility] Work Phone: 05-11-2022 10:33-0400 Heart rate 68 /min Mega Sade Valeer Work Phone: [facility] Work Phone: 05-11-2022 10:33-0400 Systolic blood pressure 118 mm[Hg] Mega O Rivas Work Phone: [facility] Work Phone: 04-26-2022 11:10-0400 Body height 147.3 cm Jos Luke MD Work Phone: [facility] 04-26-2022 11:10-0400 Body temperature 98.29 [degF] Jos Luke MD Work Phone: [facility] 04-26-2022 11:10-0400 Body weight 83.19 kg Jos Luke MD Work Phone: [facility] 04-26-2022 11:10-0400 Diastolic blood pressure 68 mm[Hg] Jos Luke MD Work Phone: [facility] 04-26-2022 11:10-0400 Heart rate 80 /min Jos Luke MD Work Phone: [facility] 04-26-2022 11:10-0400 Systolic blood pressure 119 mm[Hg] Jos Luke MD Work Phone: [facility] 02-02-2022 09:30-0400 Body height 152.4 cm Mega Sade Valeer Work Phone: [facility] Work Phone: 02-02-2022 09:30-0400 Body mass index (BMI) [Ratio] 35.35 kg/m2 Mega Sade Valeer Work Phone: [facility] Work Phone: 02-02-2022 09:30-0400 Body surface area Derived from formula 1.79 m2 Mega Sade Valeer Work Phone: [facility] Work Phone: 02-02-2022 09:30-0400 Body weight 82.1 kg Mega Sade Valeer Work Phone: [facility] Work Phone: 02-02-2022 09:30-0400 Diastolic blood pressure 76 mm[Hg] Mega Sade Valeer Work Phone: [facility] Work Phone: 02-02-2022 09:30-0400 Heart rate 80 /min Mega O Rivas Work Phone: [facility] Work Phone: 02-02-2022 09:30-0400 Systolic blood pressure 120 mm[Hg] Mega O Rivas Work Phone: [facility] Work Phone: 10-20-2021 11:09-0400 Body height 152.4 cm Mega O Rivas Work Phone: [facility] Work Phone: 10-20-2021 11:09-0400 Body mass index (BMI) [Ratio] 36.91 kg/m2 Mega O Rivas Work Phone: [facility] Work Phone: 10-20-2021 11:09-0400 Body surface area Derived from formula 1.82 m2 Mega O Rivas Work Phone: [facility] Work Phone: 10-20-2021 11:09-0400 Body weight 85.73 kg Mega O Rivas Work Phone: [facility] Work Phone: 10-20-2021 11:09-0400 Diastolic blood pressure 72 mm[Hg] Mega O Rivas Work Phone: [facility] Work Phone: 10-20-2021 11:09-0400 Heart rate 80 /min Mega O Rivas Work Phone: [facility] Work Phone: 10-20-2021 11:09-0400 Systolic blood pressure 114 mm[Hg] Mega O Rivas Work Phone: [facility] Work Phone: 06-15-2021 11:32-0500 Body height 152.4 cm Mega Sade CisnerosRivas Work Phone: [facility] Work Phone: 06-15-2021 11:32-0500 Body mass index (BMI) [Ratio] 36.52 kg/m2 Mega O Rivas Work Phone: [facility] Work Phone: 06-15-2021 11:32-0500 Body surface area Derived from formula 1.81 m2 Mega Sade Valeer Work Phone: [facility] Work Phone: 06-15-2021 11:32-0500 Body weight 84.82 kg Mega Sade Valeer Work Phone: [facility] Work Phone: 06-15-2021 11:32-0500 Diastolic blood pressure 78 mm[Hg] Mega Sade Rivas Work Phone: [facility] Work Phone: 06-15-2021 11:32-0500 Heart rate 68 /min Mega Valeer Work Phone: [facility] Work Phone: 06-15-2021 11:32-0500 Systolic blood pressure 120 mm[Hg] Mega Sade CisnerosRivas Work Phone: [facility] Work Phone: Encounters Encounter Date Encounter Type Care Provider Facility Start: 02-28-2024 End: 02-28-2024 ambulatory [facility] Start: 01-30-2024 End: 01-30-2024 ambulatory [facility] Start: 11-15-2023 End: 11-15-2023 Office outpatient visit 25 minutes Mega Rivas MD Work Phone: [facility] Comment on above: Gastroesophageal ref lux disease without esophagitis (Primary Dx); PTSD (post-traumatic stress disorder); Abdominal bloating; Chronic fatigue syndrome; Class 1 obesity due to excess calories with serious comorbidity and body mass index (BMI) of 34.0 to 34.9 in adult; Endometriosis; Fibromyalgia; Chronic migraine without aura without status migrainosus, not intractable; Moderate major depression (Multi); Polyarthralgia; Vitamin D deficiency; URSULA (stress urinary incontinence, female); Recurrent cold sores; Ischemic heart disease screen Start: 11-15-2023 End: 11-15-2023 ambulatory [facility] Start: 09-16-2023 End: 09-16-2023 Office outpatient visit 15 minutes Mega Rivas MD Work Phone: [facility] Comment on above: Class 1 obesity due to excess calories with serious comorbidity and body mass index (BMI) of 33.0 to 33.9 in adult (Primary Dx); Recurrent cold sores; Acute bronchitis, unspecified organism; Medication management Start: 09-16-2023 End: 09-16-2023 [facility] Ambulatory Start: 08-19-2023 End: 08-19-2023 Office outpatient visit 10 minutes Mega Rivas MD Work Phone: [facility] Comment on above: Class 1 obesity due to excess calories with serious comorbidity and body mass index (BMI) of 33.0 to 33.9 in adult (Primary Dx); Medication management Start: 08-19-2023 End: 08-19-2023 [facility] Start: 07-18-2023 End: 07-18-2023 Office outpatient visit 15 minutes Mega Rivas MD Work Phone: [facility] Comment on above: Class 2 severe obesi ty due to excess calories with serious comorbidity and body mass index (BMI) of 35.0 to 35.9 in adult ([facility]/HCC) (Primary Dx); Medication management; Class 1 obesity due to excess calories with serious comorbidity and body mass index (BMI) of 33.0 to 33.9 in adult Start: 07-18-2023 End: 07-18-2023 ambulatory [facility] Start: 05-27-2023 End: 05-28-2023 ambulatory [facility] Start: 05-27-2023 End: 05-27-2023 ambulatory [facility] Start: 05-27-2023 End: 05-27-2023 Office outpatient visit 25 minutes Mega Rivas MD Work Phone: [facility] Comment on above: Moderate major depre ssion (CMS/HCC) (Primary Dx); PTSD (post-traumatic stress disorder); Chronic fatigue syndrome; Fibromyalgia; Polyarthralgia; Gastroesophageal reflux disease without esophagitis; Class 2 severe obesity due to excess calories with serious comorbidity and body mass index (BMI) of 35.0 to 35.9 in adult (CMS/HCC); Chronic migraine without aura without status migrainosus, not intractable; Recurrent cold sores; URSULA (stress urinary incontinence, female); Vitamin D deficiency; Acute pain of right shoulder; Strain of right rotator cuff capsule, initial encounter; Costochondritis, acute Start: 05-27-2023 End: 05-27-2023 ambulatory [facility] Start: 01-11-2023 End: 01-12-2023 ambulatory MEGA RIVAS Facility:[facility] Start: 11-16-2022 End: 11-16-2022 Office outpatient visit 25 minutes Mega Rivas MD Work Phone: [facility] Comment on above: Fibromyalgia (Primar y Dx); Moderate major depression (CMS/HCC); PTSD (post-traumatic stress disorder); Chronic fatigue syndrome; Gastroesophageal reflux disease without esophagitis; Vitamin D deficiency; Polyarthralgia; Chronic migraine without aura without status migrainosus, not intractable; Recurrent cold sores; Endometriosis Start: 11-15-2022 End: 11-16-2022 ambulatory KIRILL FAJARDO Facility:[facility] Start: 11-15-2022 End: 11-15-2022 Patient encounter procedure Kirill Fajardo Work Phone: Podiatry Comment on above: Onychomycosis (Prima ry Dx); Severe obesity (HCC) Start: 05-25-2022 Chart Update Mega Rivas Work Phone: [facility] Work Phone: Start: 05-11-2022 ambulatory MEGA RIVAS Facil [id number] Start: 04-26-2022 End: 04-26-2022 Patient encounter procedure Jos Luke MD Work Phone: [facility] Comment on above: Hypermobility of melanie nt (Primary Dx); Fibromyalgia; Malaise and fatigue; Polyarthralgia; Vitamin D deficiency; Lateral epicondylitis of both elbows Start: 02-02-2022 Office outpatient vi sit 25 minutes Mega Rivas Work Phone: [facility] Work Phone: Start: 02-02-2022 ambulatory MEGA RIVAS Facil [id number] Start: 11-14-2021 Chart Update Mega Rivas Work Phone: [facility] Work Phone: Start: 11-07-2021 AUDIT Mega Rivas Work Phone: [facility] Work Phone: Start: 11-06-2021 Chart Update Mega Rivas Work Phone: [facility] Work Phone: Start: 10-20-2021 Office outpatient vi sit 25 minutes Mega Rivas Work Phone: [facility] Work Phone: Start: 10-20-2021 ambulatory MEGA RIVAS Facil [id number] Start: 06-30-2021 AUDIT Mega Rivas Work Phone: [facility] Work Phone: Start: 06-15-2021 Office outpatient vi sit 25 minutes Mega Valeer Work Phone: [facility] Work Phone: Start: 10-16-2019 Patient encounter procedure Mega mckay [facility] Work Phone: Start: 06-19-2019 Patient encounter procedure Mega mckay [facility] Work Phone: Start: 04-20-2019 Patient encounter procedure Mega mckay [facility] Work Phone: Procedures Date Procedure Procedure Detail Performing Clinician Start: 11-15-2023 FOLLOW UP IN [facility] MEGA RIVAS Start: 07-18-2023 DRUG SCREEN,URINE MEGA RIVAS Start: 05-27-2023 CBC panel - Blood by Automated count MEGA RIVAS Start: 05-27-2023 Comprehensive metabo lic 2000 panel - Serum or Plasma MEGA RIVAS Start: 05-27-2023 Cyanocobalamin vitam in b-12 MEGA RIVAS Start: 05-27-2023 Magnesium [Mass/volu me] in Serum or Plasma MEGA RIVAS Start: 05-27-2023 TSH WITH REFLEX TO F REE T4 IF ABNORMAL MEGA RIVAS Start: 05-27-2023 VITAMIN D 1,25 DIHYDROXY MEGA RIVAS Start: 05-27-2023 XR SHOULDER RIGHT 2+ VIEWS MARILIA YA Start: 05-27-2023 FOLLOW UP IN [facility] MEGA RIVAS Start: 04-19-2020 Cystoscopy Mega Cisneros nely Work Phone: Start: 04-19-2020 Excision of cyst of ovary Mega Rivas Work Phone: Comment on above: bilateral; Start: 04-19-2020 Hysterectomy vaginal Ro minh Rivas Work Phone: Start: 04-19-2020 Vaginal hysterectomy Ro minh Sade Rivas Work Phone: Start: 04-01-2020 Microscopic observat ion [Identifier] in Cervix by Cyto stain Mega Rivas MD Work Phone: Start: 03-29-2020 Mammography Mega estrada MD Work Phone: section Mega anderson Cholecystectomy Mega Rivas History of cholecystectomy Status post cholecystectomy Mega Rivas Work Phone: Penis excision Mega Rivas Reduction mammoplasty Mega Rivas Plan of Treatment Date Care Activity Detail Author Start: 05-25-2025 DIABETES SCREEN DIABETES SCREEN [facility] Start: 05-17-2024 End: 11-14-2024 25-hydroxyvitamin D3 [Mass/volume] in Serum or Plasma Vitamin D 25-Hydroxy,Total (for eval of Vitamin D levels) Lab Routine Vitamin D deficiency Expected: 05/17/2024 (Approximate), Expires: 11/14/2024 [facility] Work Phone: Comment on above: Expected: 05/17/2024 (Approximate), Expires: 11/14/2024 Start: 05-17-2024 End: 11-14-2024 CBC panel - Blood by Automated count CBC Lab Routine Chronic fatigue syndrome Expected: 05/17/2024 (Approximate), Expires: 11/14/2024 [facility] [[email or web address]] Service Area Work Phone: Comment on above: Expected: 05/17/2024 (Approximate), Expires: 11/14/2024 Start: 05-17-2024 End: 11-14-2024 Comprehensive metabolic 2000 panel - Serum or Plasma Comprehensive Metabolic Panel Lab Routine Chronic fatigue syndrome Expected: 05/17/2024 (Approximate), Expires: 11/14/2024 [facility] Work Phone: Comment on above: Expected: 05/17/2024 (Approximate), Expires: 11/14/2024 Start: 05-17-2024 End: 11-14-2024 Lipid 1996 panel - Serum or Plasma Lipid Panel Lab Routine Ischemic heart disease screen Expected: 05/17/2024 (Approximate), Expires: 11/14/2024 [facility] Work Phone: Comment on above: Expected: 05/17/2024 (Approximate), Expires: 11/14/2024 Start: 05-17-2024 End: 11-14-2024 Magnesium [Mass/volume] in Serum or Plasma Magnesium Lab Routine Abdominal bloating Expected: 05/17/2024 (Approximate), Expires: 11/14/2024 [facility] Work Phone: Comment on above: Expected: 05/17/2024 (Approximate), Expires: 11/14/2024 Start: 03-15-2024 Influenza vaccination Influenz a Vaccine (Season Ended) [facility] Start: 01-12-2024 Influenza vaccination Influenza Vacc ine (#1) [facility] Comment on above: Postponed from 03/15 (Patient Refused) Start: 11-15-2023 End: 11-15-2023 Patient encounter procedure 11/15/2023 11:30 AM EDT Office Visit [facility] [address] [place] [id number] Mega Rivas MD [address] [facility], [address] [place] [address] [facility] Start: 11-05-2023 DIABETES SCREEN DIABETES SCREEN [facility] Start: 10-17-2023 End: 10-17-2023 Patient encounter procedure 10/17/2023 1:00 PM EDT Office Visit [facility] [address] [place] [phone] Mega Rivas MD [address] [facility], [address] [place] [address] [facility] Start: 09-16-2023 End: 09-16-2023 Patient encounter procedure 09/16/2023 2:30 PM EST Office Visit [facility] [address] [place] [phone] Mega Rivas MD [address] [facility], [address] [place] [address] [facility] Start: 05-27-2023 End: 05-27-2024 XR Shoulder - right 2 Views XR shoulder right 2+ views Imaging Routine Acute pain of right shoulder Expected: 05/27/2023, Expires: 05/27/2024 [facility] [[email or web address]] Service Area Work Phone: Comment on above: Expected: 05/27/2023 , Expires: 05/27/2024 Start: 05-19-2023 End: 11-17-2023 Calcitriol [Mass/volume] in Serum or Plasma Vitamin D 1,25 Dihydroxy Lab Routine Vitamin D deficiency Expected: 05/19/2023 (Approximate), Expires: 11/17/2023 [facility] Work Phone: Comment on above: Expected: 05/19/2023 (Approximate), Expires: 11/17/2023 Start: 05-19-2023 End: 11-17-2023 CBC panel - Blood by Automated count CBC Lab Routine Fibromyalgia Chronic fatigue syndrome Expected: 05/19/2023 (Approximate), Expires: 11/17/2023 [facility] [[email or web address]] Service Area Work Phone: Comment on above: Expected: 05/19/2023 (Approximate), Expires: 11/17/2023 Start: 05-19-2023 End: 11-17-2023 Cobalamin (Vitamin B12) [Mass/volume] in Serum or Plasma Vitamin B12 Lab Routine Chronic fatigue syndrome Expected: 05/19/2023 (Approximate), Expires: 11/17/2023 [facility] Work Phone: Comment on above: Expected: 05/19/2023 (Approximate), Expires: 11/17/2023 Start: 05-19-2023 End: 11-17-2023 Comprehensive metabolic 2000 panel - Serum or Plasma Comprehensive Metabolic Panel Lab Routine Chronic fatigue syndrome Expected: 05/19/2023 (Approximate), Expires: 11/17/2023 [facility] Work Phone: Comment on above: Expected: 05/19/2023 (Approximate), Expires: 11/17/2023 Start: 05-19-2023 End: 11-17-2023 Magnesium [Mass/volume] in Serum or Plasma Magnesium Lab Routine Fibromyalgia Expected: 05/19/2023 (Approximate), Expires: 11/17/2023 [facility] Work Phone: Comment on above: Expected: 05/19/2023 (Approximate), Expires: 11/17/2023 Start: 05-19-2023 End: 11-17-2023 TSH with reflex to Free T4 if abnormal TSH with reflex to Free T4 if abnormal Lab Routine Moderate major depression (CMS/HCC) Chronic fatigue syndrome Polyarthralgia Expected: 05/19/2023 (Approximate), Expires: 11/17/2023 [facility] Work Phone: Comment on above: Expected: 05/19/2023 (Approximate), Expires: 11/17/2023 Start: 2023 Zoster Vaccines (1 o f 2) Zoster Vaccines (1 of 2) [facility] Start: 04-01-2023 Screening for malign ant neoplasm of cervix [facility] Start: 03-15-2023 COVID-19 Vaccine () COVID-19 Vaccine () [facility] Start: 03-15-2023 Influenza vaccination [facility] Start: 11-16-2022 EPV, Provider: Mega Rivas, Status: Chau, Time: 10:30 AM EPV, Provider: Mega Rivas, Status: Pen, Time: 10:30 AM [facility] Work Phone: Start: 11-15-2022 End: 01-15-2023 Hepatic function 2000 panel - Serum or Plasma HEPATIC FUNCTION PNL Lab Routine Onychomycosis Expected: 11/15/2022, Expires: 01/15/2023 [facility] Work Phone: Comment on above: Expected: 11/15/2022 , Expires: 01/15/2023 Start: 07-15-2022 DEPRESSION ASSESSMENT DEPRESSION [facility] Start: 05-11-2022 FUV, Provider: Mega Rivas, Status: Pen, Time: 10:30 AM FUV, Provider: Mega Rivas, Status: Pen, Time: 10:30 AM [facility] Work Phone: Start: 04-26-2022 End: 06-26-2022 25-hydroxyvitamin D3 [Mass/volume] in Serum or Plasma VITAMIN D 25 HYDROXY Lab Routine Fibromyalgia Hypermobility of joint Malaise and fatigue Polyarthralgia Vitamin D deficiency Expected: 04/26/2022, Expires: 06/26/2022 [facility] Work Phone: Comment on above: Expected: 04/26/2022 , Expires: 06/26/2022 Start: 04-26-2022 End: 06-26-2022 CBC panel - Blood by Automated count CBC Lab Routine Fibromyalgia Hypermobility of joint Malaise and fatigue Polyarthralgia Vitamin D deficiency Expected: 04/26/2022, Expires: 06/26/2022 [facility] Work Phone: Comment on above: Expected: 04/26/2022 , Expires: 06/26/2022 Start: 04-26-2022 End: 06-26-2022 Cobalamin (Vitamin B12) [Mass/volume] in Serum or Plasma VITAMIN B12 BLOOD Lab Routine Fibromyalgia Hypermobility of joint Malaise and fatigue Polyarthralgia Vitamin D deficiency Expected: 04/26/2022, Expires: 06/26/2022 [facility] Work Phone: Comment on above: Expected: 04/26/2022 , Expires: 06/26/2022 Start: 04-26-2022 End: 06-26-2022 CREATININE BLD CREATININE BLD Lab Routine Fibromyalgia Hypermobility of joint Malaise and fatigue Polyarthralgia Vitamin D deficiency Expected: 04/26/2022, Expires: 06/26/2022 [facility] Work Phone: Comment on above: Expected: 04/26/2022 , Expires: 06/26/2022 Start: 04-26-2022 End: 06-26-2022 Ferritin [Mass/volume] in Serum or Plasma FERRITIN BLD Lab Routine Fibromyalgia Hypermobility of joint Malaise and fatigue Polyarthralgia Vitamin D deficiency Expected: 04/26/2022, Expires: 06/26/2022 [facility] Work Phone: Comment on above: Expected: 04/26/2022 , Expires: 06/26/2022 Start: 04-26-2022 End: 06-26-2022 Iron and Iron binding capacity panel - Serum or Plasma IRON + TIBC Lab Routine Fibromyalgia Hypermobility of joint Malaise and fatigue Polyarthralgia Vitamin D deficiency Expected: 04/26/2022, Expires: 06/26/2022 [facility] Work Phone: Comment on above: Expected: 04/26/2022 , Expires: 06/26/2022 Start: 04-26-2022 End: 06-26-2022 Thyrotropin [Units/volume] in Serum or Plasma TSH BLD Lab Routine Fibromyalgia Hypermobility of joint Malaise and fatigue Polyarthralgia Vitamin D deficiency Expected: 04/26/2022, Expires: 06/26/2022 [facility] Work Phone: Comment on above: Expected: 04/26/2022 , Expires: 06/26/2022 Start: 03-15-2022 Influenza vaccination INFLUENZA (#1) [facility] Start: 02-02-2022 FUV, Provider: Mega Rivas, Status: Pen, Time: 9:30 AM FUV, Provider: Mega Rivas, Status: Pen, Time: 9:30 AM [facility] Work Phone: Start: 10-20-2021 EPV, Provider: Mega Rivas, Status: Pen, Time: 11:00 AM EPV, Provider: Mega Rivas, Status: Pen, Time: 11:00 AM [facility] Work Phone: Start: 07-15-2021 DEPRESSION ASSESSMENT DEPRESSION ASS ESSMENT [facility] Start: 06-23-2021 COVID-19 VACCINE (3 - Booster for Pfizer series) COVID-19 VACCINE (3 - Booster for Pfizer series) [facility] Start: 06-23-2021 COVID-19 Vaccine (3 - Pfizer series) COVID-19 Vaccine (3 - Pfizer series) [facility] Start: 03-29-2021 Screening for malign ant neoplasm of breast Mammogram [facility] Start: 2018 COLOGUARD (FIT-DNA) COLOGUARD (FIT-D NA) [facility] Start: 2018 Colonoscopy COLONOSCOPY [facility] Start: 2018 COLORECTAL CANCER SCREENING COLORECTAL CANCER SCREENING [facility] Start: [address] COLONOGRAPHY [facility] Start: 2018 FECAL OCCULT BLOOD FECAL OCCULT BLOO D [facility] Start: 2018 LIPID SCREEN LIPID SCREEN [facility] Start: 2018 SIGMOIDOSCOPY SIGMOIDOSCOPY [facility] Start: 2013 Mammography MAMMOGRAM [facility] Start: 2013 Screening for malign ant neoplasm of breast Mammogram [facility] Start: 2003 HPV TESTING HPV TESTING [facility] Start: 1995 DTaP/Tdap/Td Vaccine s (1 - Tdap) DTaP/Tdap/Td Vaccines (1 - Tdap) [facility] Start: 1994 PAP TESTING PAP TESTING [facility] Start: 1994 Screening for malign ant neoplasm of cervix [facility] Start: 1992 Hepatitis B Vaccines (1 of 3 - 19+ 3-dose series) Hepatitis B Vaccines (1 of 3 - 19+ 3-dose series) [facility] Start: 1992 Urine microalbumin profile DTAP,TDAP,TD (1 - Tdap) [facility] Start: 1991 Diabetes mellitus screening Diabetes Screening [facility] Start: 1991 Hepatitis C screening Hepatitis C [facility] Start: 1991 HIV SCREENING HIV SCREENING [facility] Start: 1974 MMR Vaccines (1 of 1 - Standard series) MMR Vaccines (1 of 1 - Standard series) [facility] Start: 1973 HEPATITIS B (1 of 3 - 3-dose series) HEPATITIS B (1 of 3 - 3-dose series) [facility] Start: 1973 Hepatitis B Vaccines (1 of 3 - 3-dose series) Hepatitis B Vaccines (1 of 3 - 3-dose series) [facility] Start: 1973 HIV screening HIV Screening [facility] Start: 1973 Lipid panel Lipid Panel [facility] Start: 1973 Screening for malign ant neoplasm of colon [facility] Start: 1973 Yearly Adult Physical Yearly Adult P hysical [facility] DRUG SCREEN,URINE DRUG SCREEN,UR INE Lab Routine Medication management 07/18/2023 1:16 PM EST [facility] [[email or web address] Service Area Work Phone: Immunizations Immunization Date Immunization Notes Care Provider Fa cilielizabeth 04-28-2021 Pfizer-BioNTech COVID-19 Vacc 30 MCG/0.3ML Intramuscular Suspension Mega Rivas Work Phone: [facility] Work Phone: 04-07-2021 Pfizer-BioNTech COVID-19 Vacc 30 MCG/0.3ML Intramuscular Suspension Mega Rivas Work Phone: [facility] Work Phone: 04-12-2016 influenza, seasonal, injectable, preservative free Mega Rivas Work Phone: [facility] Work Phone: 04-12-2016 influenza virus vaccine, unspecified formulation Mega Rivas MD Work Phone: [facility] Work Phone: Payers Date Payer Category Payer Unknown 2019 Unknown [id number] 2019 Medicare [id number] 2019 Medicare [id number] 1973 Unknown [id number] 2.16. [id number] 1973 Unknown [id number] 2.16. [id number] 1973 Unknown [id number] 2.16. [id number] 1973 Unknown [id number] 2.16.8 [id number] 1973 Unknown [id number] 2.16.8 [id number] 1973 Unknown [id number] 2.16.8 [id number] 1973 Unknown [id number] 2.16.8 [id number] 1973 Unknown [id number] 2.16.8 [id number] 1973 Unknown [id number] 2.16.8 [id number] 1973 Unknown [id number] 2.16.8 [id number] 1973 Unknown [id number] 2.16.8 [id number] 1973 Unknown [id number] Social History Date Type Detail Facility Start: 11-16-2022 End: 05-27-2023 Never a smoker Never a smoker [facility] Work Phone: Start: 08-24-2019 End: 11-16-2022 Tobacco smoking status NHIS Never smoked tobacco [facility] Start: 08-24-2019 End: 11-16-2022 Tobacco use and exposure Smokeless tobacco non-user [facility] Start: 04-26-2022 End: 11-15-2022 Alcohol intake Current non-drinker of alcohol (finding) [facility] Start: 1975 Sex Assigned At Female C [facility] Start: 04-16-2022 End: 11-15-2023 Exposure to SARS-CoV-2 (event) Not sure [facility] Start: 11-16-2022 End: 07-18-2023 Alcohol intake Current drinker of alcohol (finding) [facility] Work Phone: Start: 11-16-2022 End: 05-27-2023 Tobacco use panel [facility] Work Phone: Start: 11-16-2022 Alcohol Comment once a year [facility] Work Phone: Start: 1975 Sex Assigned At Not on file [facility] Work Phone: Start: 11-15-2023 Alcoholic beverage intake Ex-drinker (finding) [facility] Work Phone: NEGATED: Highlighted row - - [facility] Work Phone: Functional Status Date Assessment Result Facility NEGATED: Highlighted row Functional performance Functional status health issues are not documented Disease [facility] Work Phone: Mental Status Date Assessment Result Facility NEGATED: Highlighted row Cognitive function [Interpretation] Cognitive status health issues are not documented Disease [facility] Work Phone: Clinical Notes 06-15-2019 to 11-15-2023 Mega Rivas MD - 11/15/2023 11:30 AM EDVivian Rivas MD - 09/16/2023 2:30 PM Bradford Rivas MD - 08/19/2023 2:30 PM Bradford Rivas MD - 07/18/2023 1:30 PM ESTPatient Instructions Note Date & Type Note Facility 11-15-2023 History of Present illness Narrative Subjective Patient ID: Enma Hawley is a 48 y.o. female who presents for 6 mth ov. HPI PTSD and Depression and chronic fatigue - She is still using some nutraceuticals. More for the fibro and stomach. Wellbutrin made her anxiety and panic attacks worse and she stopped it. Cymbalta made her sick. Dr Teague put her on Prozac 40. That is not too bad but still has anxiety. Now on Venlafaxine. Now that she has insurance still needs to get back with [facility]. Considering a counselor in [place] at recommendation of Dr Teague. Still anxious about leaving the house but pushes to do that. Went on vacation in 2021 and had to come back home after 2 days. now on days so that helps but 7 days per week. Son moved out a couple years ago and another son in November 2020 and that was hard on her. Weeping a lot missing her boys. Son visits a lot. Did get another dog Lacy for companionship but she at at less than 2 years. So got another dog, Shelby. Also lost and old dog. So she rescued another dog. In conversations she will get forgetful. Will repeat questions she had answered. Some speech difficulty pronouncing words. Comes and goes. Has been to neurology for the memory. She is on Topamax and magnesium.. good level last May. Helping the fibromyalgia. Eye on right still twitches. . Has been to eye doctor. Noting tremor of hands now. PHQ-2 score 2. Not suicidal. Fibromyalgia and Polyarthralgia - . She has started on Nutraceuticals for this and seems to help. Trying to get more water but has the bladder spasms. She saw Dr Luke for RA which was negative and fibromyalgia and follow up as needed. Has had more falls. Had one a few days ago and feels roughed up. Feels like legs give out. Legs feel like Jello. Hands hard to hold tooth brush. Has had PT in past and not helped. Had normal MRI on June 20, 2021. Aggravated pains in hands and shakes when putting on hairspray. Still gets lightheaded. Tired all the time and and getting worse making depression worse. Dr Luke is doing labs. Still pain in the shoulders and back. Still pain and weakness with trying to put things in her cupboards. When brushing teeth toothbrush will fall out of hand. When driving her arms get weak and hurt. Very little energy but some days has the energy. But then is she does anything she is exhausted for a week. Had a disability evaluation with the conclusions that are not a lot different than my assessment. She is now on SSI. Can sit 15 minutes at a time for up to 6.5 hours per day. Up a down a lot. Stand 15 minutes at a time for up to 2.5 hours per day, walk 5 minutes at a time for up to 1 hour per day. Occasional lifting of 10 pounds and frequent lifting of 2-3 pounds, Occasional reaching at waist level and none about shoulders. Occasional stairs and no ladders. Occasional kneeling bending, stooping, crouching and use of feet to pedal control. Infrequent use of hands for fine and gross manipulation. She is trying Yoga for fibromyalgia, notes some improvement, but has not the past few months. Also wall Pilate's. Occasional stool incontinence spells are better with the gut microbiome compound. Also having chills and hot flashes. States she did fall in April and landed on right side, states she was not seen after this fall. States she tripped over carpet as they are remodeling and fell down about 3-4 steps. States she believes her legs gave out as well as tripped. Had another fall yesterday due to leg giving out. Does c/o right shoulder pain with ROM. Did PT that did not help. Denies hitting head, or passing out. Has also been taking Tylenol arthritis medication for symptoms with little relief. Voltaren does help some. Noting some Heberdens nodes developing on fingers GERD and post cholecystectomy - She is feeling bloated and full less with microbiome nutraceutical. Also abdomen pain better. So has been referred to gastroenterology was to do a colonoscopy and EGD on September 21, 2021 when he was sick. Nausea and loss of appetite but not losing weight. No Melena, dysphagia, but occasional blood and heartburn since she stopped the medication for awhile. Has had a scope in 2016 with hemorrhoids. Off Questran. States she has been trying to lose weight and has not been able to, states she has not been hungry or thirst and at times have forgotten to eat at times for whole day. States she is suppose to see recreational assistant in [place] as she is due for colonoscopy and be seen for this issues. Does note some nausea and vomiting in the morning at times due to sinuses drainage. Low vitamin D level - she is on Vitamin D weekly and high in May. Now Migraine headache - no change and has photophobia. Starts with pain in neck. Imitrex is no longer working. So she is on Topamax which does help. The neurologist in [place] added magnesium and that helps. Only one a day due to fatigue. States her migraines have been less frequent. Obesity - She got one month of Mounjaro and did lose 10. Now has Ozempic but was sick so held off and just started. So weight is up 5 this time. BMI 34. Was on phentermine [id number], then in 2013 her father n law committed suicide and states that put her back, then was diagnosed with fibromyalgia and due to medication she gained a lot of weight. States she is not eating well. URSULA (stress urinary incontinence, female) - Better since hysterectomy a year ago. Still some issues and wearing a pad. Still has pain from endometriosis even after SHANTI. Worse with cycles with one ovary. Hopefully will stop soon with menopause. Follows with urology and is suppose to start Physical therapy for this. Telogen hair loss still an issue. States she started on collagen and states this seems to be helping. Was seen by urologist, on left flank area, sharp pains, off and on daily. States she has this before, it resolved on own and then began again in March. Had US of kidney and bladder 2 weeks ago and was told no kidney stones. Denies issues with urinating. No blood in stool. Has had kidney stone in 2016. States pain is worse with bending over or twisting. Denies radiation of pain. Denies constipation or diarrhea/constipation or abdominal pain. Does have history of hemorrhoids, and some blood when wipe. Cold sores have been doing pretty well lately, none lately. Acyclovir as needed. Mammogram and PAP 04/29/23 Review of Systems Objective BP 118/82 (BP Location: Right arm, Patient Position: Sitting) Pulse 77 Wt 82.1 kg (180 lb 14.4 oz) SpO2 96% BMI 34.75 kg/m Physical Exam Vitals reviewed. Constitutional: General: She is not in acute distress. Appearance: Normal appearance. She is normal weight. HENT: Head: Normocephalic. Right Ear: Tympanic membrane, ear canal and external ear normal. Left Ear: Tympanic membrane, ear canal and external ear normal. Nose: Nose normal. Mouth/Throat: Pharynx: Oropharynx is clear. Eyes: Extraocular Movements: Extraocular movements intact. Conjunctiva/sclera: Conjunctivae normal. Pupils: Pupils are equal, round, and reactive to light. Neck: Vascular: No carotid bruit. Cardiovascular: Rate and Rhythm: Normal rate and regular rhythm. Pulses: Normal pulses. Heart sounds: Normal heart sounds. No murmur heard. Pulmonary: Effort: Pulmonary effort is normal. No respiratory distress. Breath sounds: Normal breath sounds. Abdominal: General: Abdomen is flat. Bowel sounds are normal. There is no distension. Palpations: Abdomen is soft. There is no mass. Tenderness: There is no abdominal tenderness. Musculoskeletal: Cervical back: Normal range of motion and neck supple. No tenderness. Lymphadenopathy: Cervical: No cervical adenopathy. Skin: General: Skin is warm and dry. Findings: No rash. Neurological: General: No focal deficit present. Mental Status: She is alert and oriented to person, place, and time. Psychiatric: Mood and Affect: Mood normal. Thought Content: Thought content normal. Judgment: Judgment normal. Assessment/Plan Diagnoses and all orders for this visit: Gastroesophageal reflux disease without esophagitis - Referral to Gastroenterology; Future PTSD (post-traumatic stress disorder) - Follow Up In Primary Care - Established Abdominal bloating - Referral to Gastroenterology; Future - Magnesium; Future Chronic fatigue syndrome - CBC; Future - Comprehensive Metabolic Panel; Future Class 1 obesity due to excess calories with serious comorbidity and body mass index (BMI) of 34.0 to 34.9 in adult Endometriosis Fibromyalgia Chronic migraine without aura without status migrainosus, not intractable Moderate major depression (Multi) Polyarthralgia Vitamin D deficiency - Vitamin D 25-Hydroxy,Total (for eval of Vitamin D levels); Future URSULA (stress urinary incontinence, female) Recurrent cold sores Ischemic heart disease screen - Lipid Panel; Future Other orders - Follow Up In Primary Care - Established; Future documented in this encounter [facility] Work Phone: 09-16-2023 History of Present illness Narrative Subjective Patient ID: Enma Hawley is a 48 y.o. female who presents for Follow-up (1 month weight, also has cough, sneezing, headaches, dizziness, st x1 week). HPI Phentermine was lost down kitchen sink. So she actually gained a pound. But she is down 5% from peak weight. So can continue on the medication. Has not worked out as she was sick. She has been sick for about 8 days. Congestion in the chest with yellow. Has not been able to work out. 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 Cough. ST No side effects of medication Not able to work out with being ill but will get back to that. She may be able to get Ozempic next month, 07/18/23 CSA 07/18/23 UDS as expected for medication profile Review of Systems Objective BP 112/72 (BP Location: Left arm, Patient Position: Sitting) Pulse 78 Temp 37.9 C (100.2 F) (Oral) Wt 79.8 kg (176 lb) SpO2 96% BMI 33.81 kg/m Physical Exam Constitutional: Appearance: Normal appearance. HENT: Head: Normocephalic. Right Ear: Tympanic membrane, ear canal and external ear normal. Left Ear: Tympanic membrane, ear canal and external ear normal. Nose: Nose normal. Mouth/Throat: Mouth: Mucous membranes are moist. Pharynx: Oropharynx is clear. Eyes: Extraocular Movements: Extraocular movements intact. Conjunctiva/sclera: Conjunctivae normal. Pupils: Pupils are equal, round, and reactive to light. Cardiovascular: Rate and Rhythm: Normal rate and regular rhythm. Pulmonary: Effort: Pulmonary effort is normal. Breath sounds: Rhonchi (upper lobes with cough) present. Musculoskeletal: Cervical back: Normal range of motion and neck supple. Neurological: General: No focal deficit present. Mental Status: She is alert and oriented to person, place, and time. Psychiatric: Mood and Affect: Mood normal. Behavior: Behavior normal. Thought Content: Thought content normal. Judgment: Judgment normal. Assessment/Plan Diagnoses and all orders for this visit: Class 1 obesity due to excess calories with serious comorbidity and body mass index (BMI) of 33.0 to 33.9 in adult - phentermine 37.5 mg capsule; Take 1 capsule (37.5 mg) by mouth once daily in the morning. Take before meals. Recurrent cold sores Acute bronchitis, unspecified organism - azithromycin (Zithromax) 250 mg tablet; Take 2 tablets (500 mg) by mouth once daily for 1 day, THEN 1 tablet (250 mg) once daily for 4 days. Take 2 tabs (500 mg) by mouth today, than 1 daily for 4 days.. Medication management - phentermine 37.5 mg capsule; Take 1 capsule (37.5 mg) by mouth once daily in the morning. Take before meals. documented in this encounter [facility] Work Phone: 08-19-2023 History of Present illness Narrative Subjective Patient ID: Enma Hawley is a 48 y.o. female who presents for Follow-up (1 month follow up weight). HPI 07/18/23 Would like to take something to help with weight loss. She is limited on exercise due to pain and weakness. She does go to gym. She eats grilled foods and limiting portions. But does admit to loving pasta. She does try healthy menu items.. She was on Monjouro and did lose 10 pounds. Her GI issues were actually better on that. She was able to get it for a month. It was approved and then denied. CMP WNL. Has been on this in past. She lost 46 pounds in the past. Current BMI 33. Before her children 105. Tends to run 185 now. She is drinking a lot more water. No Chest pain, Dyspnea, palpitations, numbness, weakness, claudications, or double vision/ loss of vision. I have personally reviewed the patients OARRS report. I have considered the risks of abuse, addiction and diversion. I believe it is clinically appropriate to continue to prescribe this medication. UDS 07/18/23 CSA 07/18/23 08/19/23 She has only lost 1 pound in the last month but says her pant size is going down. Feels she is gaining muscle. Doing Yoga land Pilate's at home. She had lost 7 [id number] on Mounjaro. She can tell a difference in appetite. Small portions. Feels it is working. So will try another month. No Chest pain, Dyspnea, palpitations, numbness, weakness, claudications, or double vision/ loss of vision. No nausea or vomiting Review of Systems Objective BP 116/72 (BP Location: Left arm, Patient Position: Sitting) Pulse 85 Wt 79.4 kg (175 lb) SpO2 95% BMI 33.61 kg/m Physical Exam Constitutional: Appearance: Normal appearance. She is obese. Cardiovascular: Rate and Rhythm: Normal rate and regular rhythm. Heart sounds: No murmur heard. Pulmonary: Effort: Pulmonary effort is normal. No respiratory distress. Breath sounds: Normal breath sounds. No wheezing. Skin: General: Skin is warm and dry. Neurological: General: No focal deficit present. Mental Status: She is alert and oriented to person, place, and time. Psychiatric: Mood and Affect: Mood normal. Behavior: Behavior normal. Thought Content: Thought content normal. Judgment: Judgment normal. Assessment/Plan Diagnoses and all orders for this visit: Class 1 obesity due to excess calories with serious comorbidity and body mass index (BMI) of 33.0 to 33.9 in adult - phentermine 37.5 mg capsule; Take 1 capsule (37.5 mg) by mouth once daily in the morning. Take before meals for 28 days. Medication management - phentermine 37.5 mg capsule; Take 1 capsule (37.5 mg) by mouth once daily in the morning. Take before meals for 28 days. documented in this encounter [facility] Work Phone: 07-18-2023 History of Present illness Narrative Subjective Patient ID: Enma Hawley is a 48 y.o. female who presents for Follow-up (Discuss weight loss medication). HPI Would like to take something to help with weight loss. She is limited on exercise due to pain and weakness. She does go to gym. She eats grilled foods and limiting portions. But does admit to loving pasta. She does try healthy menu items.. She was on Monjouro and did lose 10 pounds. Her GI issues were actually better on that. She was able to get it for a month. It was approved and then denied. CMP WNL. Has been on this in past. She lost 46 pounds in the past. Current BMI 33. Before her children 105. Tends to run 185 now. She is drinking a lot more water. No Chest pain, Dyspnea, palpitations, numbness, weakness, claudications, or double vision/ loss of vision. Review of Systems Objective BP 116/80 (BP Location: Left arm, Patient Position: Sitting) Pulse 86 Ht 1.537 m (5' 0.5 ) Wt 79.8 kg (176 lb) SpO2 97% BMI 33.81 kg/m Physical Exam Vitals reviewed. Constitutional: Appearance: Normal appearance. She is obese. HENT: Head: Normocephalic. Eyes: Extraocular Movements: Extraocular movements intact. Conjunctiva/sclera: Conjunctivae normal. Pupils: Pupils are equal, round, and reactive to light. Neck: Vascular: No carotid bruit. Cardiovascular: Rate and Rhythm: Normal rate and regular rhythm. Heart sounds: No murmur heard. Pulmonary: Effort: Pulmonary effort is normal. Breath sounds: Normal breath sounds. Abdominal: General: Abdomen is flat. Bowel sounds are normal. Palpations: Abdomen is soft. Musculoskeletal: Cervical back: Normal range of motion and neck supple. No tenderness. Lymphadenopathy: Cervical: No cervical adenopathy. Skin: General: Skin is warm and dry. Neurological: Mental Status: She is alert and oriented to person, place, and time. Psychiatric: Mood and Affect: Mood normal. Behavior: Behavior normal. Thought Content: Thought content normal. Judgment: Judgment normal. Assessment/Plan Diagnoses and all orders for this visit: Medication management - DRUG SCREEN,URINE Class 2 severe obesity due to excess calories with serious comorbidity and body mass index (BMI) of 35.0 to 35.9 in adult ([facility]) documented in this encounter [facility] Work Phone: 05-27-2023 History of Present illness Narrative Subjective Patient ID: Enma Hawley is a 48 y.o. female who presents for Med Management. HPI PTSD and Depression and chronic fatigue - She is now using a lot of nutraceuticals. More for the fibro and stomach. Wellbutrin made her anxiety and panic attacks worse and she stopped it. Cymbalta made her sick. Dr Teague put her on Prozac 40. That is not too bad but still has anxiety. Now that she has insurance still needs to get back with [facility]. Still anxious about leaving the house but pushes to do that. Went on vacation and had to come back home after 2 days. now on days so that helps but 7 days per week. Son moved out a couple years ago and another son in November 2020 and that was hard on her. Weeping a lot missing her boys. Son visits a lot. Close friend neighbor recently. Did get another dog Lacy for companionship. Again emphasizing need for counseling. In conversations she will get forgetful. Will repeat questions she had answered. Some speech difficulty pronouncing words. Comes and goes. Has been to neurology for the memory. She is on Topamax and magnesium. Forgets often. Level pending. Helping the fibromyalgia. Eye on right still twitches. Has been to eye doctor. PHQ-2 score 2. Not suicidal. Update 05/27/23 of above: She states her Dr. Zahida HERR just started on effexor recently. She notes her dog Lacy got sick and on May 05 . States she is having trouble remembering things so she will lay out her medication to remember to take. States since COVID she gets nervous being around people, and does not want to be out, therefore has not been back to [facility] and states even grocery shopping she wants to go home right away. Very tearful. Not suicidal. Fibromyalgia and Polyarthralgia - . She has started on Nutraceuticals for this and seems to help. Trying to get more water but has the bladder spasms. She saw Dr Luke for RA which was negative and fibromyalgia and follow up as needed. Has had more falls. Had one a few days ago and feels roughed up. Feels like legs give out. Legs feel like Jello. Hands hard to hold tooth brush. Has had PT in past and not helped. Had normal MRI on June 20, 2021. Aggravated pains in hands and shakes when putting on hairspray. Still gets lightheaded. Tired all the time and and getting worse making depression worse. Dr Luke is doing labs. Still pain in the shoulders and back. Still pain and weakness with trying to put things in her cupboards. When brushing teeth toothbrush will fall out of hand. When driving her arms get weak and hurt. Very little energy but some days has the energy. But then is she does anything she is exhausted for a week. Had a disability evaluation with the conclusions that are not a lot different than my assessment. She is now on SSI. Can sit 15 minutes at a time for up to 6.5 hours per day. Up a down a lot. Stand 15 minutes at a time for up to 2.5 hours per day, walk 5 minutes at a time for up to 1 hour per day. Occasional lifting of 10 pounds and frequent lifting of 2-3 pounds, Occasional reaching at waist level and none about shoulders. Occasional stairs and no ladders. Occasional kneeling bending, stooping, crouching and use of feet to pedal control. Infrequent use of hands for fine and gross manipulation. She is trying Yoga for fibromyalgia, notes some improvement, but has not the past few months. Occasional stool incontinence spells are better with the gut microbiome compound. Also having chills and hot flashes. States she did fall in April and landed on right side, states she was not seen after this fall. States she tripped over carpet as they are remodeling and fell down about 3-4 steps. States she believes her legs gave out as well as tripped. Does c/o right shoulder pain with ROM. Denies hitting head, or passing out. Has tried ice and heat for shoulder with little relief. Has also been taking Tylenol arthritis medication for symptoms with little relief. GERD and post cholecystectomy - She is feeling bloated and full less with microbiome nutraceutical. Also abdomen pain better. . So has been referred to gastroenterology was to do a colonoscopy on September 21 last year when he was sick. So rescheduled but needs to follow up. . Nausea and loss of appetite but not losing weight. No Melena, dysphagia, but occasional blood and heartburn since she stopped the medication for awhile. Has had a scope in 2016 with hemorrhoids. Off Questran. States she has been trying to lose weight and has not been able to, states she has not been hungry or thirst and at times have forgotten to eat at times for whole day. States she is suppose to see recreational assistant in [place] as she is due for colonoscopy and be seen for this issues. Does note some nausea and vomiting in the morning at times due to sinuses drainage. Low vitamin D level - she is on Vitamin D weekly and still a little low in May 2022, labs pending Migraine headache - no change and has photophobia. Starts with pain in neck. Imitrex is no longer working. So she is on Topamax which does help. The neurologist in [place] added magnesium and that helps. Only one a day due to fatigue. States her migraines have been less frequent. Obesity - Down 8 pounds last time and stable this time. Forgets the Nutraceuticals she is on. BMI 35. States she has been trying hard Was on phentermine [id number], then in 2013 her father n law committed suicide and states that put her back, then was diagnosed with fibromyalgia and due to medication she gained a lot of weight. States she is not eating well, (please see above). States she is wanting to discuss monjuaro as her sisters are on this and noticed benefit. URSULA (stress urinary incontinence, female) - Better since hysterectomy a year ago. Still some issues and wearing a pad. Still has pain from endometriosis even after SHANTI. Worse with cycles with one ovary. Hopefully will stop soon with menopause. Follows with urology and is suppose to start Physical therapy for this. Telogen hair loss still an issue. States she started on collagen and states this seems to be helping. Was seen by urologist, on left flank area, sharp pains, off and on daily. States she has this before, it resolved on own and then began again in March. Had US of kidney and bladder 2 weeks ago and was told no kidney stones. Denies issues with urinating. No blood in stool. Has had kidney stone in 2016. States pain is worse with bending over or twisting. Denies radiation of pain. Denies constipation or diarrhea/constipation or abdominal pain. Does have history of hemorrhoids, and some blood when wipe. Cold sores have been doing pretty well lately, none lately. Acyclovir as needed. Mammogram and PAP 04/29/23 Review of Systems Objective BP 122/78 (BP Location: Right arm, Patient Position: Sitting) Pulse 71 Wt 83 kg (183 lb) SpO2 97% BMI 35.44 kg/m Physical Exam HENT: Right Ear: Tympanic membrane, ear canal and external ear normal. Left Ear: Tympanic membrane, ear canal and external ear normal. Mouth/Throat: Mouth: Mucous membranes are moist. Pharynx: Oropharynx is clear. Eyes: Extraocular Movements: Extraocular movements intact. Conjunctiva/sclera: Conjunctivae normal. Pupils: Pupils are equal, round, and reactive to light. Comments: Eye glassses Cardiovascular: Rate and Rhythm: Normal rate and regular rhythm. Pulses: Normal pulses. Heart sounds: Normal heart sounds. Pulmonary: Effort: Pulmonary effort is normal. Breath sounds: Normal breath sounds. Abdominal: General: Bowel sounds are normal. There is no distension. Palpations: Abdomen is soft. Tenderness: There is no abdominal tenderness. Musculoskeletal: General: Tenderness (posterior joint capsule right. Left rib margin) present. Cervical back: Normal range of motion. Comments: Right shoulder pain with ROM and thus limited ROM. Duenas positive. Spurling's negative. Skin: General: Skin is warm and dry. Neurological: Mental Status: She is alert and oriented to person, place, and time. Motor: No weakness (no weakness with ER and AB of right shoulder but has pain). Psychiatric: Mood and Affect: Affect is flat. Thought Content: Thought content does not include suicidal ideation. Assessment/Plan Problem List Items Addressed This Visit ICD-10-CM Chronic fatigue syndrome G93.32 Class 2 severe obesity due to excess calories with serious comorbidity and body mass index (BMI) of 35.0 to 35.9 in adult ([facility]) E66.01, Z68.35 Fibromyalgia M79.7 GERD (gastroesophageal reflux disease) K21.9 Migraine headache G43.909 Moderate major depression ([facility]) - Primary F32.1 Polyarthralgia M25.50 PTSD (post-traumatic stress disorder) F43.10 Relevant Orders Follow Up In Primary Care - Established Recurrent cold sores B00.1 URSULA (stress urinary incontinence, female) N39.3 Vitamin D deficiency E55.9 Other Visit Diagnoses Codes Acute pain of right shoulder M25.511 Relevant Orders XR shoulder right 2+ views Strain of right rotator cuff capsule, initial encounter S46.011A Costochondritis, acute M94.0 For the shoulder will Xray and have her use Voltaren. Reassurance regarding ribs but can persist for awhile. She is to get labs today and then consider Mounjaro for the weight. We can see if covered just for obesity Patient initially seen by Teagan Arce ADMISSIONS RECRUITER student. I reviewed history and examined patient independently and updated as needed. documented in this encounter [facility] Work Phone: 05-27-2023 Instructions Mega Rivas MD - 05/27/2023 11:30 AM EST Voltaren Gel to shoulder 2-4 times per day documented in this encounter [facility] Work Phone: 11-16-2022 History of Present illness Narrative Subjective Patient ID: Enma Hawley is a 47 y.o. female who presents for Med Management. HPI PTSD and Depression and chronic fatigue - She is now using a lot of nutraceuticals. More for the fibro and stomach. Wellbutrin made her anxiety and panic attacks worse and she stopped it. Cymbalta made her sick. Dr Teague put her on Prozac 40. That is not too bad but still has anxiety. Now that she has insurance still needs to get back with [facility]. Still anxious about leaving the house but pushes to do that. Went on vacation and had to come back home after 2 days. now on days so that helps but 7 days per week. Son moved out a couple years ago and another son in November 2020 and that was hard on her. Weeping a lot missing her boys. Son visits a lot. Close friend neighbor recently. Did get another dog Lacy for companionship. Again emphasizing need for counseling. In conversations she will get forgetful. Will repeat questions she had answered. Some speech difficulty pronouncing words. Comes and goes. Has been to neurology for the memory. She is on Topamax and magnesium. Forgets often. Level pending. Helping the fibromyalgia. Eye on right still twitches. Has been to eye doctor. PHQ-2 score 2. Not suicidal. Fibromyalgia and Polyarthralgia - . She has started on Nutraceuticals for this and seems to help. Trying to get more water but has the bladder spasms. She saw Dr Luke for RA which was negative and fibromyalgia and follow up as needed. Has had more falls. Had one a few days ago and feels roughed up. Feels like legs give out. Legs feel like Jello. Hands hard to hold tooth brush. Has had PT in past and not helped. Had normal MRI on June 20, 2021. Aggravated pains in hands and shakes when putting on hairspray. Still gets lightheaded. Tired all the time and and getting worse making depression worse. Dr Luke is doing labs. Still pain in the shoulders and back. Still pain and weakness with trying to put things in her cupboards. When brushing teeth toothbrush will fall out of hand. When driving her arms get weak and hurt. Very little energy but some days has the energy. But then is she does anything she is exhausted for a week. Had a disability evaluation with the conclusions that are not a lot different than my assessment. She is now on SSI. Can sit 15 minutes at a time for up to 6.5 hours per day. Up a down a lot. Stand 15 minutes at a time for up to 2.5 hours per day, walk 5 minutes at a time for up to 1 hour per day. Occasional lifting of 10 pounds and frequent lifting of 2-3 pounds, Occasional reaching at waist level and none about shoulders. Occasional stairs and no ladders. Occasional kneeling bending, stooping, crouching and use of feet to pedal control. Infrequent use of hands for fine and gross manipulation. She is trying Yoga for fibromyalgia. Occasional stool incontinence spells are better with the gut microbiome compound. Also having chills and hot flashes GERD and post cholecystectomy - She is feeling bloated and full less with microbiome nutraceutical. Also abdomen pain better. . So has been referred to gastroenterology was to do a colonoscopy on September 21 last year when he was sick. So rescheduled but needs to follow up. . Nausea and loss of appetite but not losing weight. No Melena, dysphagia, but occasional blood and heartburn since she stopped the medication for awhile. Has had a scope in 2017 with hemorrhoids. Off Questran Low vitamin D level - she is on Vitamin D weekly and still a little low in May. Migraine headache - no change and has photophobia. Starts with pain in neck. Imitrex is no longer working. So she is on Topamax which does help. The neurologist added magnesium and that helps. Only one a day due to fatigue Obesity - Down 8 pounds last time and stable this time. Forgets the Nutraceuticals she is on. BMI 36. URSULA (stress urinary incontinence, female) - Better since hysterectomy a year ago. Still some issues and wearing a pad. Still has pain from endometriosis even after SHANTI. Worse with cycles with one ovary. Hopefully will stop soon with menopause Telogen hair loss still an issue. Cold sores have been doing pretty well lately. Rare acyclovir with one a week ago. Mammogram to be in February and PAP Review of Systems Objective BP 112/72 (BP Location: Left arm, Patient Position: Sitting) Pulse 80 Ht 1.53 m (5' 0.25 ) Wt 84.4 kg (186 lb) SpO2 96% BMI 36.02 kg/m Physical Exam Vitals reviewed. Constitutional: General: She is not in acute distress. Appearance: Normal appearance. HENT: Head: Normocephalic. Right Ear: Tympanic membrane normal. Left Ear: Tympanic membrane normal. Nose: Nose normal. Mouth/Throat: Pharynx: Oropharynx is clear. Eyes: Extraocular Movements: Extraocular movements intact. Conjunctiva/sclera: Conjunctivae normal. Pupils: Pupils are equal, round, and reactive to light. Neck: Vascular: No carotid bruit. Cardiovascular: Rate and Rhythm: Normal rate and regular rhythm. Pulses: Normal pulses. Heart sounds: Normal heart sounds. No murmur heard. Pulmonary: Effort: Pulmonary effort is normal. No respiratory distress. Breath sounds: Normal breath sounds. Abdominal: General: Abdomen is flat. Bowel sounds are normal. There is no distension. Palpations: Abdomen is soft. There is no mass. Tenderness: There is no abdominal tenderness. Musculoskeletal: General: Tenderness (multiple triggers) present. No swelling. Normal range of motion. Cervical back: Normal range of motion and neck supple. No tenderness. Lymphadenopathy: Cervical: No cervical adenopathy. Skin: General: Skin is warm and dry. Findings: No rash. Neurological: General: No focal deficit present. Mental Status: She is alert and oriented to person, place, and time. Motor: Weakness (diffusely 4/5 moreso on right) present. Psychiatric: Mood and Affect: Mood normal. Thought Content: Thought content normal. Judgment: Judgment normal. Assessment/Plan Problem List Items Addressed This Visit Chronic fatigue syndrome Relevant Orders CBC Comprehensive Metabolic Panel TSH with reflex to Free T4 if abnormal Vitamin B12 Endometriosis Fibromyalgia - Primary Relevant Orders CBC Magnesium GERD (gastroesophageal reflux disease) Migraine headache Moderate major depression (CMS/HCC) Relevant Orders TSH with reflex to Free T4 if abnormal Polyarthralgia Relevant Orders TSH with reflex to Free T4 if abnormal PTSD (post-traumatic stress disorder) Relevant Orders Follow Up In Primary Care Recurrent cold sores Vitamin D deficiency Relevant Orders Vitamin D 1,25 Dihydroxy Patient was identified as a fall risk. Risk prevention instructions provided. See notes above with Fibromyalgia. documented in this encounter [facility] Work Phone: 11-16-2022 Instructions Mega Rivas MD - 11/16/2022 10:30 AM EDT Ways to Help Prevent Falls at Home Quick Tips ? Ask for help if you need it. Most people want to help! ? Get up slowly after sitting or laying down ? Wear a medical alert device or keep cell phone in your pocket ? Use night lights, especially areas near a bathroom ? Keep the items you use often within reach on a small stool or end table ? Use an assistive device such as walker or cane, as directed by provider/physical therapy ? Use a non-slip mat and grab bars in your bathroom. Look for home health sections for best options Other Areas to Focus On ? Exercise and nutrition: Regular exercise or taking a falls prevention class are great ways improve strength and balance. Don t forget to stay hydrated and bring a snack! ? Medicine side effects: Some medicines can make you sleepy or dizzy, which could cause a fall. Ask your healthcare provider about the side effects your medicines could cause. Be sure to let them know if you take any vitamins or supplements as well. ? Tripping hazards: Remove items you could trip on, such as loose mats, rugs, cords, and clutter. Wear closed toe shoes with rubber soles. ? Health and wellness: Get regular checkups with your healthcare provider, plus routine vision and hearing screenings. Talk with your healthcare provider about: o Your medicines and the possible side effects - bring them in a bag if that is easier! o Problems with balance or feeling dizzy o Ways to promote bone health, such as Vitamin D and calcium supplements o Questions or concerns about falling *Ask your healthcare team if you have questions [facility] 2021 documented in this encounter [facility] Work Phone: 11-15-2022 Note HNO ID: [id number] Author: Kirill Fajardo Service: ? Author Type: Physician Type: Progress Notes Filed: 11/16/2022 10:25 PM Note Text: Initial Podiatric Office Visit: Chief Complaint: This 47 year old female who presents with chief complaint:toenail fungus HPI Patient presents to clinic for evaluation of b/l feet. She complains of thick, discolored toenails of both feet. She has tried topical medication without success. She does complain of pain with any degree of pressure. Patient is here to discuss options for the toenails. PAIN EVALUATION No data found in the last 1 encounters. No results found for: HBA1C PCP: Mega Rivas MD, MD PAST MEDICAL HISTORY Diagnosis Date Anxiety Depression Fibromyalgia Insomnia Current Outpatient Medications Medication Sig pantoprazole (PROTONIX) 40 mg injection Inject intravenously DAILY (6 AM). aspirin/acetaminophen/caffeine (EXCEDRIN MIGRAINE ORAL) Take by mouth. MULTIVITAMIN ORAL Take by mouth. COLLAGEN MISC ascorbic acid (VITAMIN C ORAL) Take by mouth. BIOTIN ORAL Take by mouth. prochlorperazine (COMPAZINE) 10 mg tablet Take 1 tablet by mouth twice daily as needed. FLUoxetine HCl (PROZAC) 40 mg capsule Take 40 mg by mouth once daily. topiramate (TOPAMAX) 100 mg tablet Take 1 tablet by mouth daily at bedtime. magnesium oxide (MAG-OX) 400 mg (241.3 mg magnesium) tablet Take 1 tablet by mouth twice daily. riboflavin, vitamin B2, (VITAMIN B-2) 100 mg tab Take 1 tablet by mouth once daily. No current facility-administered medications for this visit. ALLERGIES Allergen Reactions Codeine GI Upset PAST SURGICAL HISTORY Procedure Laterality Date BREAST REDUCTION SECTION HX CHOLECYSTECTOMY FAMILY HISTORY Problem Relation Age of Onset Colon Cancer Mother Heart Attack Brother Social History Tobacco Use Smoking status: Never Smokeless tobacco: Never Substance Use Topics Alcohol use: No Drug use: No REVIEW OF SYSTEMS GENERAL: Negative for Malaise, significant weight loss, fever RESPIRATORY: Negative for cough, wheezing and shortness of breath CARDIOVASCULAR: Negative for chest pain, leg swelling and palpitations GI: Negative for abdominal discomfort, blood in stools or black stools and change in bowel habits : Negative for dysuria, frequency and incontinence MUSCULOSKELETAL: Negative for joint pain or swelling, back pain, and muscle pain. SKIN: Negative for lesions, rash, and itching. HEMATOLOGY/LYMPHOLOGY Negative for prolonged bleeding, bruising easily, and swollen nodes. ENDOCRINE: Negative for cold or heat intolerance, polyuria, polydipsia and goiter. NEURO: negative Physical Exam: Constitutional: Pt is a well developed 47 year old female who is alert, oriented and cooperative Eyes: Following during examination. No redness or drainage. Respiratory: RR normal and nonlabored. Even breathing. No evidence of distress or shortness of breath. Psychology: Patient is engaged during conversation. Normal affect and mood. Does not appear depressed or anxious during encounter. Vascular: Dorsalis pedis and posterior tibial pulses palpable as b/l Capillary Fill time < 5 seconds to digits 1-5 b/l Skin temperature warm to cool proximal to distal b/l Hair growth present to digits Neurological: intact light touch/epicritic sensation b/l intact protective sensation no significant neurological deficits Dermatological: Nails 1-5 b/l appear discolored yellow and dystrophic. Webspaces clean and dry 1-4 b/l. Skin appears well hydrated and supple. good color, texture, turgor. No open lesions present. No callosities present. Musculoskeletal/Orthopaedic: Foot type is neutral structurally AJ ROM is full with knee extended and flexed 1st MPJ is full when loaded and no pain or crepitus are noted with ROM. MTJ, STJ are full and free of pain and crepitus. +5/5 muscle strength dorsiflexion, plantarflexion, inversion, eversion b/l Radiographs: n/a ASSESSMENT: (B35.1) Onychomycosis (primary encounter diagnosis) PLAN: 1. History and physical examination performed. 2. Discussed discolored toenails of b/l feet. Discussed various etiolgies not limited to fungus, mold, yeast, trauma, aging of nails. In the event these are fungal, discussed various treatment options not limited to topical care which has low success, oral medication but need to check liver enzymes, laser vs removal. Patient may be intereseted in lamisil. Will check hepatic function panel. 3. Will call patient with results. Kirill Fajardo DPM Podiatry [address] [facility] [address] Dept: [phone] Dept [facility] 11-15-2022 Note HNO ID: [id number] Author: Inge Mendoza LPN Service: ? Author Type: LICENSED NURSE Type: Progress Notes Filed: 11/16/2022 10:25 PM Note Text: AMB ROOMING INTAKE FLOWSHEET DATA Patient presents with: Left Foot - New, Nail Fungus Right Foot - New, Nail Fungus Inge Mendoza LPN [facility] 11-15-2022 History of Present illness Narrative Initial Podiatric Office Visit: Chief Complaint: This 47 year old female who presents with chief complaint:toenail fungus HPI Patient presents to clinic for evaluation of b/l feet. She complains of thick, discolored toenails of both feet. She has tried topical medication without success. She does complain of pain with any degree of pressure. Patient is here to discuss options for the toenails. PAIN EVALUATION No data found in the last 1 encounters. No results found for: HBA1C PCP: Mega Rivas MD, MD PAST MEDICAL HISTORY Diagnosis Date Anxiety Depression Fibromyalgia Insomnia Current Outpatient Medications Medication Sig pantoprazole (PROTONIX) 40 mg injection Inject intravenously DAILY (6 AM). aspirin/acetaminophen/caffeine (EXCEDRIN MIGRAINE ORAL) Take by mouth. MULTIVITAMIN ORAL Take by mouth. COLLAGEN MISC ascorbic acid (VITAMIN C ORAL) Take by mouth. BIOTIN ORAL Take by mouth. prochlorperazine (COMPAZINE) 10 mg tablet Take 1 tablet by mouth twice daily as needed. FLUoxetine HCl (PROZAC) 40 mg capsule Take 40 mg by mouth once daily. topiramate (TOPAMAX) 100 mg tablet Take 1 tablet by mouth daily at bedtime. magnesium oxide (MAG-OX) 400 mg (241.3 mg magnesium) tablet Take 1 tablet by mouth twice daily. riboflavin, vitamin B2, (VITAMIN B-2) 100 mg tab Take 1 tablet by mouth once daily. No current facility-administered medications for this visit. ALLERGIES Allergen Reactions Codeine GI Upset PAST SURGICAL HISTORY Procedure Laterality Date BREAST REDUCTION SECTION HX CHOLECYSTECTOMY FAMILY HISTORY Problem Relation Age of Onset Colon Cancer Mother Heart Attack Brother Social History Tobacco Use Smoking status: Never Smokeless tobacco: Never Substance Use Topics Alcohol use: No Drug use: No REVIEW OF SYSTEMS GENERAL: Negative for Malaise, significant weight loss, fever RESPIRATORY: Negative for cough, wheezing and shortness of breath CARDIOVASCULAR: Negative for chest pain, leg swelling and palpitations GI: Negative for abdominal discomfort, blood in stools or black stools and change in bowel habits : Negative for dysuria, frequency and incontinence MUSCULOSKELETAL: Negative for joint pain or swelling, back pain, and muscle pain. SKIN: Negative for lesions, rash, and itching. HEMATOLOGY/LYMPHOLOGY Negative for prolonged bleeding, bruising easily, and swollen nodes. ENDOCRINE: Negative for cold or heat intolerance, polyuria, polydipsia and goiter. NEURO: negative Physical Exam: Constitutional: Pt is a well developed 47 year old female who is alert, oriented and cooperative Eyes: Following during examination. No redness or drainage. Respiratory: RR normal and nonlabored. Even breathing. No evidence of distress or shortness of breath. Psychology: Patient is engaged during conversation. Normal affect and mood. Does not appear depressed or anxious during encounter. Vascular: Dorsalis pedis and posterior tibial pulses palpable as b/l Capillary Fill time < 5 seconds to digits 1-5 b/l Skin temperature warm to cool proximal to distal b/l Hair growth present to digits Neurological: intact light touch/epicritic sensation b/l intact protective sensation no significant neurological deficits Dermatological: Nails 1-5 b/l appear discolored yellow and dystrophic. Webspaces clean and dry 1-4 b/l. Skin appears well hydrated and supple. good color, texture, turgor. No open lesions present. No callosities present. Musculoskeletal/Orthopaedic: Foot type is neutral structurally AJ ROM is full with knee extended and flexed 1st MPJ is full when loaded and no pain or crepitus are noted with ROM. MTJ, STJ are full and free of pain and crepitus. +5/5 muscle strength dorsiflexion, plantarflexion, inversion, eversion b/l Radiographs: n/a ASSESSMENT: (B35.1) Onychomycosis (primary encounter diagnosis) PLAN: 1. History and physical examination performed. 2. Discussed discolored toenails of b/l feet. Discussed various etiolgies not limited to fungus, mold, yeast, trauma, aging of nails. In the event these are fungal, discussed various treatment options not limited to topical care which has low success, oral medication but need to check liver enzymes, laser vs removal. Patient may be intereseted in lamisil. Will check hepatic function panel. 3. Will call patient with results. Kirill Fajardo DPM Podiatry [address] [facility] [facility] [address] Dept: [phone] Dept AMB ROOMING INTAKE FLOWSHEET DATA Patient presents with: Left Foot - New, Nail Fungus Right Foot - New, Nail Fungus Inge Mendoza LPN documented in this encounter [facility] 04-26-2022 History of Present illness Narrative Subjective HPI: 47-year-old pleasant lady with generalized chronic pain, hypermobility is here for follow-up. She has a history of fibromyalgia and has failed multiple medications. Last visit was in April 2021 and she was asked to follow-up as needed. Recently she has noticed increased generalized pain. She is had increased pain in her elbows, shoulders, hips and feet. She took a fall recently with bruising and pain in the hips. She has had difficulty lifting even a gallon of milk. Overall pain is 5/10. She has no swelling. She is on PPI. She did physical therapy in 2018 without much response. She continues to have fatigue. She has been recommended sleep study but has not been able to go. She had a hysterectomy in April 2020. She has failed multiple NSAIDs. She has failed gabapentin, Cymbalta, Lyrica, ibuprofen. She has insomnia. New patient visit August 24, 2019 Enma Hawley is a 44 year old female who presents with generalized chronic pain is here for evaluation. She's been diagnosed with fibromyalgia by her PCP but has failed multiple medications. Her pain is 6/10 all over especially shoulders, back, hips and knees. She has no swelling. Stiffness can be worse in the morning and sometimes last 4-5 hours area she's had the symptoms at least since 2008. She has tried physical therapy and water therapy in 2018? But didn't see much improvement. She's tried various NSAIDs without much improvement. She takes ibuprofen without any relief. NSAIDs also upset her stomach. She has tried gabapentin, Cymbalta, Lyrica but has had trouble tolerating all these medications. She hasn't had any blood work recently. She describes dry mouth but no dry eyes. She denies any raynauds. She's noticed a itchy rash underneath her left breast for which she uses cortisone but has not seen a trench pipe layer for it. She denies any other rashes. She denies any family history of autoimmune disease. PAST MEDICAL HISTORY Diagnosis Date Anxiety Depression Fibromyalgia Insomnia PAST SURGICAL HISTORY Procedure Laterality Date BREAST REDUCTION SECTION HX CHOLECYSTECTOMY Health Maintenance Procedures HEPATITIS B(1 of 3 - 3-dose series) Never done HIV SCREENING Never done DTAP,TDAP,TD(1 - Tdap) Never done PAP TESTING Never done HPV TESTING Never done MAMMOGRAM Never done LIPID SCREEN Never done COLORECTAL CANCER SCREENING Never done COVID-19 VACCINE(3 - Booster for Pfizer series) due on 06/23/2021 DEPRESSION ASSESSMENT Never done INFLUENZA(1) due on 03/15/2022 Discussed health maintenance, including regular aerobic exercise, low fat diet, and periodic exams. Health Maintenance Immunizations Given Immunizations: Immunization History Administered Date(s) Administered COVID-19 original vaccine, age 12+ yr, monovalent ([employer] - PURPLE TOP) 04/07/2021 04/28/2021 Current Outpatient Medications Medication Sig topiramate (TOPAMAX) 100 mg tablet Take 1 tablet by mouth daily at bedtime. pantoprazole (PROTONIX) 40 mg injection Inject intravenously DAILY (6 AM). aspirin/acetaminophen/caffeine (EXCEDRIN MIGRAINE ORAL) Take by mouth. MULTIVITAMIN ORAL Take by mouth. COLLAGEN MISC ascorbic acid (VITAMIN C ORAL) Take by mouth. BIOTIN ORAL Take by mouth. prochlorperazine (COMPAZINE) 10 mg tablet Take 1 tablet by mouth twice daily as needed. magnesium oxide (MAG-OX) 400 mg (241.3 mg magnesium) tablet Take 1 tablet by mouth twice daily. riboflavin, vitamin B2, (VITAMIN B-2) 100 mg tab Take 1 tablet by mouth once daily. FLUoxetine HCl (PROZAC) 40 mg capsule Take 40 mg by mouth once daily. No current facility-administered medications for this visit. ALLERGIES Allergen Reactions Codeine GI Upset FAMILY HISTORY Problem Relation Age of Onset Colon Cancer Mother Heart Attack Brother Social History Tobacco Use Smoking status: Never Smokeless tobacco: Never Substance Use Topics Alcohol use: No Drug use: No History Review: I have reviewed and modified as needed, the following during this visit: Allergies, Past Medical History, Past Surgical History, Past Family History, Past Social History. Review of Systems CONSTITUTIONAL: Recent Weight Gain: no Recent Weight Loss: No Fatigue: Yes Weakness: no Fever: No EYES: Pain: no Redness: No Loss of vision: No Double or blurred vision: No Dryness: No Feels like something in eye: no Itching eyes: no FURY-KHET-DHHRF-THROAT: Ringing in ears:no Loss of hearing: No Nosebleeds: No Loss of smell: No Dryness in nose: no Runny Nose: No Sore tongue: No Bleeding gums: No Sores in mouth: No Loss of taste: No Dryness of mouth: Yes Frequent sore throats: no Hoarseness: no Difficulty in swallowing: No CARDIOVASCULAR: Pain in chest: No Irregular heart beat: Yes Sudden changes in heart beat: No High blood pressure: No Heart murmurs: No RESPIRATORY: Shortness of breath:no Difficulty in breathing at night: No Swollen legs or feet: No Cough: No Cough of blood: No Wheezing (asthma): No GASTROINTESTINAL: Nausea: Yes Vomiting of blood or coffee ground material: No Stomach pain relieved by food or milk: No Jaundice: No Increasing constipation: No Persistent diarrhea: No Blood in stools: No Black stools: No Heartburn: Yes GENITOURINARY: Difficult urination: No Pain or burning on urination: No Blood in urine: No Cloudy, smoky urine: No Pus in urine: No Discharge from penis/vagina: No Getting up at night to pass urine: No Vaginal dryness: No Rash/ulcers: No Sexual difficulties: No Prostate trouble: No MUSCULOSKELETAL: Negative for joint swelling, back pain, Morning Stiffness: Yes, Joint Pain: Yes, Muscle Weakness: Yes, Muscle Tenderness: Yes and Joint Swelling: no INTEGUMENTARY: Easy Bruising:no Redness: No Rash: no Hives: No Sun sensitive: No Tightness: No Nodules/bumps: No Hair loss:no Color changes of hands or feet in the cold: No NEUROLOGICAL SYSTEM: Headaches: Yes Dizziness: no Fainting: No Muscle spasm: No Loss of consciousness: No Sensitivity or pain of hands and/or feet: No Memory loss: Yes Night sweats: No PSYCHIATRIC: Excessive worries: Yes Anxiety: Yes Easily losing temper: Yes Depression: Yes Agitation: Yes Difficulty falling asleep: Yes Difficulty staying asleep: Yes ENDOCRINE: Excessive thirst: No HEMATOLOGIC/LYMPHATIC: Swollen glands: No Tender glands: No Anemia: No Bleeding tendency: No Transfusion/ when: No ALLERGIC/IMMUNOLOGIC; Frequent sneezing: No Increased susceptibility to infection: No BP 119/68 Pulse 80 Temp 36.8 C (98.3 F) (Temporal) Ht 147.3 cm (4' 10 ) Wt 83.2 kg (183 lb 6.4 oz) BMI 38.33 kg/m Physical Exam GENERAL: Well appearing, alert, comfortable, in no acute distress, well-hydrated, well nourished. HEENT: Negative for external ears normal. Canals are clear. Both TMs visualized and are normal. Eye Exam normal. External nose normal, no nasal ulcer or throat ulcer. NECK: NECK Supple, no adenopathy; thyroid symmetric, normal size, no bruits CARDIAC: regular rate and rhythm, No murmur asculated. and Equal peripheral pulses RESPIRATORY: Lungs clear to auscultation. No wheezing, rhonchi, rales VASCULAR: RRR without murmur, gallop, or rubs. No ectopy. ABDOMEN: Soft, non tender. BS active. No masses or organomegaly. LYMPHATIC: Negative for adenopathy in the neck, axillae, groin, supraclavicular and auricular. NEURO: Motor and sensory exam normal MOTOR: Normal; including tone, gait, stressed gait, power and coordination. SKIN: Negative for alopecia, skin rash, malar rash, skin lesion, skin ulcer, pits, thickening, color changes, telangiectasias, nail changes, nail ridging, nail pitting, onycholysis MUSCULOSKELETAL: Diffusely tender over all fibromyalgia tender points No fullness involving any joint Hypermobility multiple joints noted New patient visit August 2019 Tender both wrists, elbows, medial and lateral epicondyles Tenderness bilateral trochanteric bursa Tenderness both knees, and seen bursa Tenderness diffusely over the spine Mild hypermobility of the knees and ankles Lab Results: July 2021 B12 normal 1153 Folate greater than 01 November 2020 Creatinine 0.78 Liver enzyme normal ESR 12 CRP normal CBC normal TSH 2.51 HLA-B27 negative August 2019 CMP normal CRP normal Rheumatoid factor negative, anti-CCP negative, hepatitis panel negative, LEONIDES negative CBC normal ESR 9 TSH 1.4 recent Serology: Rheumatoid factor negative, anti-CCP negative, hepatitis panel negative, LEONIDES negative Radiology: Ultrasound right lower extremity September 2019-negative for DVT Assessment (M24.9) Hypermobility of joint (primary encounter diagnosis) (M79.7) Fibromyalgia (R53.81, R53.83) Malaise and fatigue (M25.50) Polyarthralgia (E55.9) Vitamin D deficiency (M77.11, M77.12) Lateral epicondylitis of both elbows 47-year-old pleasant lady with #1 Fibromyalgia-has generalized chronic pain-has diffuse tenderness. No inflammatory arthritis on exam. May also have some mild hypermobility arthralgias. All serologies negative, inflammatory markers normal. No evidence for autoimmune disease. Continues to have generalized pain #2 Migraine-has seen neurologist and on treatment #3 adverse effects from multiple medications including gabapentin, Cymbalta, Lyrica, various NSAIDs #4 fatigue-continues to be symptomatic #5 hypermobility elbows and knees-may be causing some arthralgias, instability and chronic pain #6 Nausea, abdominal pain-symptomatic in spite of PPI #7 bilateral lateral epicondylitis-symptomatic Plan Patient last seen April 2021 and released at that time. Extensive work-up in the past for him in process negative She had increase generalized pain today but on exam again no evidence of any inflammatory arthritis Suspect symptoms to be from hypermobility and possibly fibromyalgia She has tried and failed multiple medications in the past including Lyrica, gabapentin, Cymbalta and various NSAIDs Recommend using ooca-vdh-vevnocd anti-inflammatory or Tylenol as needed on an intermittent basis Recommend regular exercises-she is failed physical therapy before Recommend forearm band for lateral epicondylitis of the elbow Consider sleep study if fatigue continues Check iron stores, B12, vitamin D, folate level Obtain updated blood work Recommend low impact exercises Continue vitamin D supplementation Follow-up as needed Office Visit on 04/26/22 TSH BLD FERRITIN BLD IRON + TIBC VITAMIN B12 BLOOD VITAMIN D 25 HYDROXY CBC CREATININE BLD Return if symptoms worsen or fail to improve. Jos Luke MD documented in this encounter [facility] 08-03-2021 Note HNO ID: [id number] Author: Jose Alfredo Carlos MD Service: ? Author Type: Physician Type: Progress Notes Filed: 08/03/2021 11:34 AM Note Text: HPI: Enma Hawley is a 46 year old female who presents for Consult (Bloating and IBS ). Pt is here for the above. Pt has hx of FMG. Had an EGD and colonoscopy early . Pt is on pantoprazole 40 mg daily. Gets postprandial bloating. Eats less but no wt loss. Has lower abd pain before a BM then relief. BM's can be hard but much of the time has postprandial urgency and loose stools. Another colonoscopy was done 2016 and was neg. At AG? Not in Epic. Sees blood w some straining 2-3x's per mo. Has a BM 1-3x's per day. Has some reflux but may be more related to compliance w PPI. Has some nausea, occas emesis w sinus issues? No dysphagia. M had CRC. Current Outpatient Medications Medication Sig - topiramate (TOPAMAX) 100 mg tablet Take 1 tablet by mouth daily at bedtime. - pantoprazole (PROTONIX) 40 mg injection Inject intravenously DAILY (6 AM). - aspirin/acetaminophen/caffeine (EXCEDRIN MIGRAINE ORAL) Take by mouth. - MULTIVITAMIN ORAL Take by mouth. - COLLAGEN MISC - ascorbic acid (VITAMIN C ORAL) Take by mouth. - BIOTIN ORAL Take by mouth. - prochlorperazine (COMPAZINE) 10 mg tablet Take 1 tablet by mouth twice daily as needed. - FLUoxetine HCl (PROZAC) 40 mg capsule Take 40 mg by mouth once daily. - magnesium oxide (MAG-OX) 400 mg (241.3 mg magnesium) tablet Take 1 tablet by mouth twice daily. - riboflavin, vitamin B2, (VITAMIN B-2) 100 mg tab Take 1 tablet by mouth once daily. No current facility-administered medications for this visit. PAST MEDICAL HISTORY Diagnosis Date - Anxiety - Depression - Fibromyalgia - Insomnia PAST SURGICAL HISTORY Procedure Laterality Date - BREAST REDUCTION - SECTION HX - CHOLECYSTECTOMY FAMILY HISTORY Problem Relation Age of Onset - Colon Cancer Mother - Heart Attack Brother Social History Tobacco Use - Smoking status: Never Smoker - Smokeless tobacco: Never Used Substance Use Topics - Alcohol use: No - Drug use: No ALLERGIES Allergen Reactions - Codeine GI Upset REVIEW OF SYSTEMS GENERAL: No weight loss, malaise or fevers. HEENT: Negative for frequent or significant headaches, No changes in hearing or vision, no nose bleeds or other nasal problems. NECK: Negative for lumps, goiter, pain and significant neck swelling. RESPIRATORY: Negative for cough, hemoptysis, wheezing or shortness of breath CARDIOVASCULAR: Negative for chest pain, leg swelling or palpitations GI: See HPI : No history of dysuria, frequency or incontinence MUSCULOSKELETAL: Negative for joint pain or swelling, back pain or muscle pain. SKIN: Negative for lesions, rash, and itching PSYCH: Negative for sleep disturbance, mood disorder and recent psychosocial stressors NEURO: No history of headaches, syncope, paralysis, seizures or tremors PHYSICAL EXAMINATION: BP 120/85 Pulse 90 Ht 4' 10 (1.47m) Wt 190 lb 12.8 oz (86.5kg) BMI 39.89 kg/(m2). GENERAL APPEARANCE: Well appearing, alert, in no acute distress, well-hydrated, well nourished.. SKIN: Skin color, texture, turgor normal, no suspicious rashes or lesions. EYES: Anicteric sclera. Pupils are equally round and reactive to light. Extraocular movements are intact. . NECK: Supple, no adenopathy; thyroid symmetric, normal size, no bruits. LUNGS: Lungs clear to auscultation. No wheezing, rhonchi, rales. HEART: RRR without murmur, gallop, or rubs. No ectopy. ABDOMEN: Normal, soft, non-tender, no masses or organomegaly. EXTREMITIES: No deformities, edema, skin discoloration, clubbing or cyanosis. NEUROLOGIC: Gait normal. Sensation and strength grossly intact.. ASSESSMENT AND PLAN: ASSESSMENT/PLAN: 1. Family hx of colon cancer - ICD9: V16.0, ICD10: Z80.0 (primary diagnosis) - COLONOSCOPY DIAGNOSTIC 2. Rectal bleeding - ICD9: 569.3, ICD10: K62.5 - COLONOSCOPY DIAGNOSTIC 3. Lower abdominal pain - ICD9: 789.09, ICD10: R10.30 - COLONOSCOPY DIAGNOSTIC 4. Early satiety - ICD9: 780.94, ICD10: R68.81 - EGD DIAGNOSTIC 5. Gastroesophageal reflux disease, unspecified whether esophagitis present - ICD9: 530.81, ICD10: K21.9 - Discussed lifestyle modifications including losing weight, limiting caffeine, no meals three hours before sleep and head of bed elevation - EGD DIAGNOSTIC 6. Functional diarrhea - ICD9: 564.5, ICD10: K59.1 - COLONOSCOPY DIAGNOSTIC - EGD DIAGNOSTIC Jose Alfredo Carlos MD [facility] 05-11-2021 Note HNO ID: [id number] Author: Jos Luke MD Service: ? Author Type: Physician Type: Progress Notes Filed: 05/11/2021 1:12 PM Note Text: Subjective HPI: 46-year-old pleasant lady with generalized chronic pain, hypermobility is here for follow-up. She has a history of fibromyalgia and has failed multiple medications. Since last visit she has seen a neurologist and diagnosed with migraine and given medication. She is also scheduled for some additional evaluation. Recently she has noted some increased nausea, abdominal pain. She is on PPI through her PCP already. Her pain today is 6/10 in her neck, upper back, elbows, hands, knees and hips. She is noted some swelling in the morning in the hands and feet but no swelling right now. Stiffness in the morning can last many hours. She is elected to hold off on repeat physical therapy. She did physical therapy in 2018 without much response. She continues to have fatigue. She has been recommended sleep study but has not been able to go. She had a hysterectomy in April 2020. She has failed multiple NSAIDs. She has failed gabapentin, Cymbalta, Lyrica, ibuprofen. She continues to describe fatigue. She has insomnia. New patient visit August 24, 2019 Enma Hawley is a 44 year old female who presents with generalized chronic pain is here for evaluation. She's been diagnosed with fibromyalgia by her PCP but has failed multiple medications. Her pain is 6/10 all over especially shoulders, back, hips and knees. She has no swelling. Stiffness can be worse in the morning and sometimes last 4-5 hours area she's had the symptoms at least since 2007. She has tried physical therapy and water therapy in 2018? But didn't see much improvement. She's tried various NSAIDs without much improvement. She takes ibuprofen without any relief. NSAIDs also upset her stomach. She has tried gabapentin, Cymbalta, Lyrica but has had trouble tolerating all these medications. She hasn't had any blood work recently. She describes dry mouth but no dry eyes. She denies any raynauds. She's noticed a itchy rash underneath her left breast for which she uses cortisone but has not seen a trench pipe layer for it. She denies any other rashes. She denies any family history of autoimmune disease. PAST MEDICAL HISTORY Diagnosis Date - Anxiety - Depression - Fibromyalgia - Insomnia PAST SURGICAL HISTORY Procedure Laterality Date - BREAST REDUCTION - SECTION HX - CHOLECYSTECTOMY Health Maintenance Procedures DEPRESSION SCREENING Never done HIV SCREENING Never done DTAP,TDAP,TD(1 - Tdap) Never done PAP TESTING Never done HPV TESTING Never done MAMMOGRAM Never done LIPID SCREEN Never done COLORECTAL CANCER SCREENING Never done INFLUENZA(1) due on 03/15/2021 Discussed health maintenance, including regular aerobic exercise, low fat diet, and periodic exams. Health Maintenance Immunizations Given Immunizations: Immunization History Administered Date(s) Administered COVID-19 vaccine ([employer]) 04/07/2021 04/28/2021 Current Outpatient Medications Medication Sig - topiramate (TOPAMAX) 100 mg tablet Take 1 tablet by mouth daily at bedtime. - pantoprazole (PROTONIX) 40 mg injection Inject intravenously DAILY (6 AM). - aspirin/acetaminophen/caffeine (EXCEDRIN MIGRAINE ORAL) Take by mouth. - MULTIVITAMIN ORAL Take by mouth. - COLLAGEN MISC - ascorbic acid (VITAMIN C ORAL) Take by mouth. - BIOTIN ORAL Take by mouth. - prochlorperazine (COMPAZINE) 10 mg tablet Take 1 tablet by mouth twice daily as needed. - magnesium oxide (MAG-OX) 400 mg (241.3 mg magnesium) tablet Take 1 tablet by mouth twice daily. - riboflavin, vitamin B2, (VITAMIN B-2) 100 mg tab Take 1 tablet by mouth once daily. - FLUoxetine HCl (PROZAC) 40 mg capsule Take 40 mg by mouth once daily. No current facility-administered medications for this visit. ALLERGIES Allergen Reactions - Codeine GI Upset FAMILY HISTORY Problem Relation Age of Onset - Colon Cancer Mother - Heart Attack Brother Social History Tobacco Use - Smoking status: Never Smoker - Smokeless tobacco: Never Used Substance Use Topics - Alcohol use: No - Drug use: No History Review: I have reviewed and modified as needed, the following during this visit: Allergies, Past Medical History, Past Surgical History, Past Family History, Past Social History. Review of Systems CONSTITUTIONAL: Recent Weight Gain: no Recent Weight Loss: No Fatigue: Yes Weakness: no Fever: No EYES: Pain: no Redness: No Loss of vision: No Double or blurred vision: No Dryness: No Feels like something in eye: no Itching eyes: no [id number]: Ringing in ears:no Loss of hearing: No Nosebleeds: No Loss of smell: No Dryness in nose: Yes Runny Nose: No Sore tongue: No Bleeding gums: No Sores in mouth: No Loss of taste: No Dryness of mouth: Yes Frequent so (more content not included)... [facility] 12-30-2020 Note HNO ID: [id number] Author: Leonila Mirza MD Service: ? Author Type: Physician Type: Progress Notes Filed: 01/28/2021 9:51 PM Note Text: NEW PATIENT EVALUATION Subjective HPI Enma Hawley is a 45 year old right-handed female who presents for evaluation of memory difficulty. Dr. Luke is the referring physician. Dr. Mega Rivas MD is the PCP. She explains that she has had migraines as long as she can remember. Diagnosed with fibromyalgia in 2017. Headache description: - Aura: n/a - Onset: Any time - Location: Starts in the back and then holocranial - Pain: Throbbing / pounding - Duration: All day to a few days - Frequency: Daily for a few months, before that was 2-3 times a month - A/w: (++)photophobia / (++)phonophobia / (+)nausea / (+)osmophobia / (-)autonomic sx - Positional?: Little better laying - Improves with: Laying down in a dark quiet room - Triggers: n/a - Family Hx: 2 sisters, niece, mom Current preventive: n/a Current abortive: Excedrin (somewhat helpful, maybe every other) Previous preventives: For FM she has tried gabapentin, duloxetine, pregabalin but had side effects to each mostly GI Previous abortives: Some medication from her PCP didn't help but she doesn't recall what it was She has had memory difficulty. Will forget to do things, has forgotten to pay bills, forgotten to add detergent to laundry, will go into a room and forget why. Will be driving and then pass where she is going and forget where she is going. Knees and ankles will give out on her. Loses her balance sometimes. Her body is in constant pain. She has tried many medicines but always gets sick to her stomach. Can barely eat but then is still gaining weight. When she looks up she gets dizziness. She has always had balance problems even as a kid. Sleep is terrible. Wakes up often. Can't get comfortable, just bought a new mattress. Pain certainly contributes. Has never been able to sleep well even when she was little. She has depression and anxiety. She is on fluoxetine, maybe helping a little bit. Had seen a psychiatrist in the past, then lost insurance, then pandemic, but would be open to going back. Currently getting fluoxetine from her negative notcher. She had an emergency hysterectomy 04/2020. Having problems with her bowels and bladder. Medications: Current Outpatient Medications Medication Sig Dispense Refill - FLUoxetine HCl (PROZAC) 40 mg capsule Take 40 mg by mouth once daily. No current facility-administered medications for this visit. ROS ROS: Her ROS was positive for that mentioned in the HPI. Otherwise a 10-point ROS was completed and was negative. ALLERGIES Allergen Reactions - Codeine GI Upset Past Medical History: PAST MEDICAL HISTORY Diagnosis Date - Anxiety - Depression - Fibromyalgia - Insomnia Family History: FAMILY HISTORY Problem Relation Age of Onset - Colon Cancer Mother - Heart Attack Brother Mom had some kind of neurologic condition but never formally diagnosed Multiple family members with migraine see HPI Social History: Social History Tobacco Use - Smoking status: Never Smoker - Smokeless tobacco: Never Used Substance Use Topics - Alcohol use: No - Drug use: No HS + 1/2 year of college Lives with her No tob, etoh, or drugs 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 Head: Normocephalic, no masses, lesions, tenderness or abnormalities Neck: Supple Heart: RRR Peripheral Pulses: Normal Neurologic Examination Mental Status: She is alert. She is fully oriented. Attention is intact. Recent and remote memory is intact. Language shows normal comprehension and fluency. Affect is flat. MOCA - Education: 12.5 + 1. Visuospatial / executive: 11/16. Namin/3. Attention: 11/17. Language: 07/17. Abstraction: 08/16. Delayed recall: 11/16. Orientation: 12/18. Total: 28/30 Cranial Nerves: Pupils are equal and reactive to light. Extraocular movements show full and smooth pursuits. No nystagmus. Funduscopic exam shows sharp optic discs and normal vasculature. Visual brantley are full to confrontation. Facial sensation is intact. Facial activation is symmetric. Hearing is intact to conversation. There is no hypomimia. There is no hypophonia. There is no dysarthria. Tongue is midline. Palate elevates symmetrically. Shoulder shrug is normal. Motor: Muscle bulk is normal. Rapid alternating movements are normal. Muscle power is full. Sensory: Intact to fine touch, temp, and vibration. Reflex: 2+ and symmetric. Coordination: (more content not included)... [facility] 11-04-2020 Note HNO ID: [id number] Author: Jos Luke Service: ? Author Type: Physician Type: Progress Notes Filed: 11/04/2020 10:30 AM Note Text: Subjective HPI: 45-year-old pleasant lady with generalized chronic pain, hypermobility is here for follow-up. She has a history of fibromyalgia and has failed multiple medications. Her pain today is 6/10 all over especially neck, shoulders, hands, top of left foot. She has no swelling. Stiffness is all day but worse for 4 to 5 hours in the morning. She was recommended physical therapy but has not been able to go-she did physical therapy in 2018 without much response. She describes headaches, memory loss, some problems with speech intermittently. She has excessive fatigue. She has trouble sleeping at night. She has been recommended sleep study but has not been able to go. She had a hysterectomy in April 2020. She has failed multiple NSAIDs. She has failed gabapentin, Cymbalta, Lyrica, ibuprofen. She continues to describe fatigue. She has insomnia. New patient visit August 24, 2019 Enma Hawley is a 44 year old female who presents with generalized chronic pain is here for evaluation. She's been diagnosed with fibromyalgia by her PCP but has failed multiple medications. Her pain is 6/10 all over especially shoulders, back, hips and knees. She has no swelling. Stiffness can be worse in the morning and sometimes last 4-5 hours area she's had the symptoms at least since 2007. She has tried physical therapy and water therapy in 2018? But didn't see much improvement. She's tried various NSAIDs without much improvement. She takes ibuprofen without any relief. NSAIDs also upset her stomach. She has tried gabapentin, Cymbalta, Lyrica but has had trouble tolerating all these medications. She hasn't had any blood work recently. She describes dry mouth but no dry eyes. She denies any raynauds. She's noticed a itchy rash underneath her left breast for which she uses cortisone but has not seen a trench pipe layer for it. She denies any other rashes. She denies any family history of autoimmune disease. PAST MEDICAL HISTORY Diagnosis Date - Fibromyalgia diag by pcp PAST SURGICAL HISTORY Procedure Laterality Date - BREAST REDUCTION - SECTION HX - CHOLECYSTECTOMY Health Maintenance Procedures DEPRESSION SCREENING Completed HIV SCREENING Completed DTAP,TDAP,TD(1 - Tdap) Completed PAP TESTING Completed HPV TESTING Completed MAMMOGRAM Completed LIPID SCREEN Completed Discussed health maintenance, including regular aerobic exercise, low fat diet, and periodic exams. Health Maintenance Immunizations Given Immunizations: There is no immunization history on file for this patient. Current Outpatient Medications Medication Sig - FLUoxetine HCl (PROZAC) 40 mg capsule Take 40 mg by mouth once daily. No current facility-administered medications for this visit. ALLERGIES Allergen Reactions - Codeine GI Upset FAMILY HISTORY Problem Relation Age of Onset - Colon Cancer Mother - Heart Attack Brother Social History Tobacco Use - Smoking status: Never Smoker - Smokeless tobacco: Never Used Substance Use Topics - Alcohol use: No - Drug use: No History Review: I have reviewed and modified as needed, the following during this visit: Allergies, Past Medical History, Past Surgical History, Past Family History, Past Social History. Review of Systems CONSTITUTIONAL: Recent Weight Gain: no Recent Weight Loss: No Fatigue: Yes Weakness: no Fever: No EYES: Pain: no Redness: No Loss of vision: No Double or blurred vision: No Dryness: No Feels like something in eye: no Itching eyes: no [id number]: Ringing in ears:no Loss of hearing: No Nosebleeds: No Loss of smell: No Dryness in nose: Yes Runny Nose: No Sore tongue: No Bleeding gums: No Sores in mouth: No Loss of taste: No Dryness of mouth: Yes Frequent sore throats: no Hoarseness: Yes Difficulty in swallowing: No CARDIOVASCULAR: Pain in chest: No Irregular heart beat: Yes Sudden changes in heart beat: No High blood pressure: No Heart murmurs: No RESPIRATORY: Shortness of breath:no Difficulty in breathing at night: No Swollen legs or feet: No Cough: No Cough of blood: No Wheezing (asthma): No GASTROINTESTINAL: Nausea: Yes Vomiting of blood or coffee ground material: No Stomach pain relieved by food or milk: No Jaundice: No Increasing constipation: No Persistent diarrhea: No Blood in stools: No Black stools: No Heartburn: Yes GENITOURINARY: Difficult urination: No Pain or burning on urination: No Blood in urine: No Cloudy, smoky urine: No Pus in urine: No Discharge from penis/vagina: No Getting up at night to pass urine: No Vaginal dryness: No Rash/ulcers: No Sexual difficulties: No Prostate trouble: No MUSCULOSKELETAL: Negative for joint swelling, back pain, Morning Sti (more content not included)... [facility] 10-22-2019 History of Present illness Narrative PTSD and Depression - Wellbutrin made her anxiety and panic attacks worse and she stopped it. Dr Teague put her on Prozac 40. That is not too bad but still has anxiety. Now that she has insurance still needs to get back with [facility]. Still anxious about leaving the house but pushes to to that. now on days so that helps but 7 days per week. Son moved out a couple years ago and another son in November 2020 and that was hard on her. Weeping a lot missing her boys. Son visits a lot. Did get another dog for companionship. Again emphasizing need for counseling. In conversations she will get forgetful. Will repeat questions she had answered. Flor made her sick. Has been to neurology for the memory. She is on Topamax and magnesium. Helping the fibromyalgia. Eye on right still twitches.Fibromyalgia - . She saw Dr Luke for RA which was negative and fibromyalgia and follow up as needed. Sent to neurology as above for memory. Had normal MRI on June 20, 2021. Has had more falls including in August and bruised left hand. Aggravated this. Still gets lightheaded. Tired all the time and and getting worse making depression worse. Also getting pain in hands. Still pain in the shoulders and back. Still pain and weakness with trying to put things in her cupboards. When driving her arms get weak and hurt. Very little energy but some days has the energy. Had a disability evaluation with the conclusions that are not a lot different than my assessment. She is now on SSI. Can sit 15 minutes at a time for up to 6.5 hours per day. Up a down a lot. Stand 15 minutes at a time for up to 2.5 hours per day, walk 5 minutes at a time for up to 1 hour per day. Occasional lifting of 10 pounds and frequent lifting of 2-3 pounds, Occasional reaching at waist level and none about shoulders. Occasional stairs and no ladders. Occasional kneeling bending, stooping, crouching and use of feet to pedal control. Infrequent use of hands for fine and gross manipulation. She says she is having more falls as her legs give out on her. And she is having more tremors with the weakness. She is trying Yoga for fibromyalgia. Occasional stool incontinence spells.. Also having chills and hot flashes.PHQ-9 score 20. Not suicidalGERD and post cholecystectomy - She is feeling bloated and full all the time. Abdomen pain. So has been referred to gastroenterology was to do a colonoscopy on September 21 when he was sick. So rescheduled. Nausea and loss of appetite but not losing weight. No HB, Melena, dysphagia, but occasional blood. Has had a scope in 2016 with hemorrhoids. Was sick a month ago with diarrhea and vomiting. Lost weight. ST. Cough. Doing betterImpaired fasting glucose - FBS on labs in August 2020 was below 100. No polyphagia, polydipsia, polyuria, or non healing sores.Low vitamin D level - she is on MVI only.Migraine headache - no change with photophobia. Imitrex is no longer working. So she is on Topamax which does help. The neurologist added magnesium. Has been off for a few weeksObesity - frustrated with this as she cannot work out due to pain. Feels she does not eat much at all and she still not able to lose. Up a couple this timePostcholecystectomy syndrome -no change in the post prandial stools. No blood but has a lot of food particles. Some incontinence. She is bloated all the time. To see gastroenterology. Off [facility].PTSD (post-traumatic stress disorder) - has been to Dr Jos Luke of [facility] for the comprehensive pain management which will cover this. She is now to return as needed. She is seeing neurologySUI (stress urinary incontinence, female) - Better since hysterectomy a year ago. Still some issues. Still has pain from endometriosis. Worse with cycles with one ovary.Telogen hair loss still an issue.Cold sores have been doing pretty well lately. Rare acyclovir [facility] Work Phone: 06-15-2019 History of Present illness Narrative PTSD and Depression - Wellbutrin made her anxiety and panic attacks worse and she stopped it. Dr Teague put her on Prozac 40. That is not too bad but still has anxiety. Now that she has insurance still needs to get back with [facility]. Anxious about leaving the house. now on days so that helps. Son moved out a couple years ago and another son in November and that was hard on her. Weeping a lot missing her boys. Again emphasizing need for counseling. In conversations she will get forgetful. Will repeat questions she had answered. Cymbalta made her sick. Has been to neurology for the memory. She is on Topamax and magnesium. Helping the fibromyalgia. Still forgetful. Eye on right still twitches. She is about to lose long friend dog.Fibromyalgia - . She saw Dr Luke for RA which was negative and fibromyalgia and follow up as needed. Sent to neurology as above for memory. To have MRI on June 20. . Has had more falls and aggravated this. Still gets lightheaded. Tired all the time and and getting worse making depression worse. Also getting pain in hands. Still pain in the shoulders and back. Still pain and weakness with trying to put things in her cupboards. When driving her arms get weak and hurt. Very little energy but some days has the energy. Had a disability evaluation with the conclusions that are not a lot different than my assessment. She is now on SSI. Can sit 15 minutes at a time for up to 6.5 hours per day. Up a down a lot. Stand 15 minutes at a time for up to 2.5 hours per day, walk 5 minutes at a time for up to 1 hour per day. Occasional lifting of 10 pounds and frequent lifting of 2-3 pounds, Occasional reaching at waist level and none about shoulders. Occasional stairs and no ladders. Occasional kneeling bending, stooping, crouching and use of feet to pedal control. Frequent use of hands for fine and gross manipulation. Frequent usages above which I would actually put somewhere between occasional and frequent. She says she is having more falls as her legs give out on her. And she is having more tremors with the weakness. She is trying Yoga for fibromyalgia. Did have as stool incontinence spell a few weeks ago. Also having chills and hot flashesGERD - She is feeling bloated and full all the time. Abdomen pain. So has been referred to gastroenterology. Nausea and loss of appetite but not losing weight. No HB, Melena, dysphagia, but occasional blood. Has had a scope in 2017 with hemorrhoids.Impaired fasting glucose - FBS on labs in August was below 100. No polyphagia, polydipsia, polyuria, or non healing sores.Low vitamin D level - she is on supplement for this.Migraine headache - no change with photophobia. Imitrex is no longer working. So she is on Topamax which does help. The neurologist added magnesium. Forgets to take medications.Obesity - frustrated with this as she cannot work out due to pain. Feels she does not eat much at all and she still not able to lose.Postcholecystectomy syndrome -no change in the post prandial stools. No blood but has a lot of food particles. Some incontinence. She is bloated all the time. To see gastroenterology. Off [facility].PTSD (post-traumatic stress disorder) - has been to Dr Jos Luke of [facility] for the comprehensive pain management which will cover this. She is now to return as needed. She is seeing neurologySUI (stress urinary incontinence, female) - Better since hysterectomy a year ago. Still some issues. .Telogen hair loss still an issue.Cold sores have been doing pretty well lately. Rare acyclovir [facility] Work Phone: Evaluation note Diagnosis Hypermobility of joint- Primary Other joint derangement, not elsewhere classified, unspecified site Fibromyalgia Mylagia and myositis, unspecified Malaise and fatigue Other malaise and fatigue Polyarthralgia Pain in joint, multiple sites Vitamin D deficiency Unspecified vitamin D deficiency Lateral epicondylitis of both elbows Lateral epicondylitis of elbow [facility] Diagnosis Fibromyalgia- Primary Unspecified myalgia and myositis Moderate major depression (CMS/HCC) Major depressive disorder, single episode, moderate PTSD (post-traumatic stress disorder) Posttraumatic stress disorder Chronic fatigue syndrome Gastroesophageal reflux disease without esophagitis Esophageal reflux Vitamin D deficiency Polyarthralgia Pain in joint, multiple sites Chronic migraine without aura without status migrainosus, not intractable Recurrent cold sores Herpes simplex without mention of complication Endometriosis Endometriosis, site unspecified documented in this encounter [facility] Work Phone: Evaluation note* Diagnosis Onychomycosis- Primary Dermatophytosis of nail Severe obesity (HCC) Morbid obesity [facility] Diagnosis Moderate major depression (CMS/HCC)- Primary Major depressive disorder, single episode, moderate PTSD (post-traumatic stress disorder) Posttraumatic stress disorder Chronic fatigue syndrome Fibromyalgia Unspecified myalgia and myositis Polyarthralgia Pain in joint, multiple sites Gastroesophageal reflux disease without esophagitis Esophageal reflux Class 2 severe obesity due to excess calories with serious comorbidity and body mass index (BMI) of 35.0 to 35.9 in adult (CMS/HCC) Chronic migraine without aura without status migrainosus, not intractable Recurrent cold sores Herpes simplex without mention of complication URSULA (stress urinary incontinence, female) Vitamin D deficiency Acute pain of right shoulder Strain of right rotator cuff capsule, initial encounter Costochondritis, acute documented in this encounter [facility] Work Phone: Evaluation note* Diagnosis Class 1 obesity due to excess calories with serious comorbidity and body mass index (BMI) of 33.0 to 33.9 in adult- Primary Medication management documented in this encounter [facility] Work Phone: Evaluation note* Diagnosis Class 1 obesity due to excess calories with serious comorbidity and body mass index (BMI) of 33.0 to 33.9 in adult- Primary Recurrent cold sores Herpes simplex without mention of complication Acute bronchitis, unspecified organism Medication management documented in this encounter [facility] Work Phone: Evaluation note* Diagnosis Gastroesophageal reflux disease without esophagitis- Primary Esophageal reflux PTSD (post-traumatic stress disorder) Posttraumatic stress disorder Abdominal bloating Flatulence, eructation, and gas pain Chronic fatigue syndrome Class 1 obesity due to excess calories with serious comorbidity and body mass index (BMI) of 34.0 to 34.9 in adult Endometriosis Endometriosis, site unspecified Fibromyalgia Unspecified myalgia and myositis Chronic migraine without aura without status migrainosus, not intractable Moderate major depression (Multi) Major depressive disorder, single episode, moderate Polyarthralgia Pain in joint, multiple sites Vitamin D deficiency URSULA (stress urinary incontinence, female) Recurrent cold sores Herpes simplex without mention of complication Ischemic heart disease screen Screening for ischemic heart disease documented in this encounter [facility] Work Phone: Evaluation note* Diagnosis Class 2 severe obesity due to excess calories with serious comorbidity and body mass index (BMI) of 35.0 to 35.9 in adult ([facility])- Primary Medication management Class 1 obesity due to excess calories with serious comorbidity and body mass index (BMI) of 33.0 to 33.9 in adult documented in this encounter [facility] Work Phone: History of Present illness Narrative* PTSD and Depression - She is now using a lot of nutraceuticals. More for the fibro and stomach. Wellbutrin made her anxiety and panic attacks worse and she stopped it. Dr Marcanthony put her on Prozac 40. That is not too bad but still has anxiety. Now that she has insurance still needs to get back with [facility]. Still anxious about leaving the house but pushes to do that. Went on vacation and had to come back home after 2 days. now on days so that helps but 7 days per week. Son movedout a couple years ago and another son in November 2020 and that was hard on her. Weeping a lot missing her boys. Son visits a lot. Did get another dog for companionship. One of them is being trained for c ompanion dog. Again emphasizing need for counseling. In conversations she will get forgetful. Will repeat questions she had answered. Some speech slurring. Comes and goes. Cymbalta made her sick. Hasbeen to neurology for the memory. She is on Topamax and magnesium. Helping the fibromyalgia. Eye onright still twitches. * Fibromyalgia - . She has started on Nutraceuticals for this and not long enough to see if any help.She saw Dr Luke for RA which was negative and fibromyalgia and follow up as needed. Has had more falls. Had normal MRI on June 20, 2021. Aggravated pains in hands and shakes when putting on hairsp ray. Still gets lightheaded. Tired all the time and and getting worse making depression worse. Still pain in the shoulders and back. Still pain and weakness with trying to put things in her cupboards. When driving her arms get weak and hurt. Very little energy but some days has the energy. Had a dis ability evaluation with the conclusions that are not a lot different than my assessment. She is nowon SSI. Can sit 15 minutes at a time for up to 6.5 hours per day. Up a down a lot. Stand 15 minutesat a time for up to 2.5 hours per day, walk 5 minutes at a time for up to 1 hour per day. Occasional lifting of 10 pounds and frequent lifting of 2-3 pounds, Occasional reaching at waist level and none about shoulders. Occasional stairs and no ladders. Occasional kneeling bending, stooping, crouching and use of feet to pedal control. Infrequent use of hands for fine and gross manipulation. She says she is having more falls as her legs give out on her. And she is having more tremors with the weakness. She is trying Yoga for fibromyalgia. Occasional stool incontinence spells are better with thegut microbiome compound. Also having chills and hot flashes.PHQ-9 score 20 last time. . Not suicidal * GERD and post cholecystectomy - She is feeling bloated and full less with microbiome nutraceutical.Also abdomen pain better. . So has been referred to gastroenterology was to do a colonoscopy on September 21 when he was sick. So rescheduled. Nausea and loss of appetite but not losing weight. No Melena, dysphagia, but occasional blood and heartburn since she stopped the medication for awhile. Has hada scope in 2016 with hemorrhoids. * Impaired fasting glucose - FBS on labs in August 2020 was below 100. No polyphagia, polydipsia, polyuria, or non healing sores. * Low vitamin D level - she is on Vitamin D weekly * Migraine headache - no change with photophobia. Imitrex is no longer working. So she is on Topamax which does help. The neurologist added magnesium and that helps. * Obesity - Down 8 pounds with the Nutraceuticals she is on. * Postcholecystectomy syndrome - less of the stools postprandial stools and incontinence. To see gastroenterology. Off [facility]. * PTSD (post-traumatic stress disorder) - has been to Dr Jos Luke of [facility] for the comprehensive pain management which will cover this. She is now to return as needed. She has been to neurology * URSULA (stress urinary incontinence, female) - Better since hysterectomy a year ago. Still some issues. Still has pain from endometriosis. Worse with cycles with one ovary. * Telogen hair loss still an issue. * Cold sores have been doing pretty well lately. Rare acyclovir [facility] Work Phone: Reason for referral (narrative)* Consultation (Routine) - Authorized Specialty Diagnoses / Procedures Referred By Emily dean Referred To Contact Primary Care Diagnoses PTSD (post-traumatic stress disorder) Procedures Follow Up In Primary Care Mega Rivas MD [address] [facility], [facility] [address] [place] [address] Referral ID Status Reason Start Date Expiration Date V isits Requested Visits Authorized [id number] Authorized 11/16/2022 05/15/2023 1 1 [facility] Work Phone: reason for referral (narrative)* Consultation (Routine) - Authorized Specialty Diagnoses / Procedures Referred By Contac t Referred To Contact Primary Care Diagnoses PTSD (post-traumatic stress disorder) Procedures Follow Up In Primary Care - Established Mega Rivas MD [address] [facility], [address] [place] [address] Referral ID Status Reason Start Date Expiration Date V isits Requested Visits Authorized [id number] Authorized 05/27/2023 05/26/2024 1 1 * Imaging (Routine) - Authorized Specialty Diagnoses / Procedures Referred By Contac t Referred To Contact Radiology Diagnoses Acute pain of right shoulder Procedures XR shoulder right 2+ views Mega Rivas MD [address] [facility], [place] [id number] Referral ID Status Reason Start Date Expiration Date Visits Requested Visits Authorized [id number] Authorized Perform Procedure 05/26/2024 1 1 [facility] Work Phone: reason for referral (narrative)* Consultation (Routine) - Authorized Specialty Diagnoses / Procedures Referred By Contac t Referred To Contact Primary Care Procedures Follow Up In Primary Care - Established Mega Rivas MD [address] [facility], [place] [id number] Referral ID Status Reason Start Date Expiration Date V isits Requested Visits Authorized [id number] Authorized 11/15/2023 11/14/2024 1 1 * Consultation (Routine) - Authorized Specialty Diagnoses / Procedures Referred By Emily dean Referred To Contact Gastroenterology Diagnoses Gastroesophageal reflux disease without esophagitis Abdominal bloating Mega Rivas MD [address] [facility], [place] [id number] Referral ID Status Reason Start Date Expiration Date Visits Requested Visits Authorized [id number] Authorized Specialty Services Required 11/15/2023 11/14/2024 [address] Ya [facility] Work Phone: Reason for referral (narrative)* Consultation (Routine) - Authorized Specialty Diagnoses / Procedures Referred By Emily dean Referred To Contact Primary Care Diagnoses Class 2 severe obesity due to excess calories with serious comorbidity and body mass index (BMI) of 35.0 to 35.9 in adult ([facility]) Procedures Follow Up In Primary Care - Established Mega Rivas MD [address] [facility], [place] [address] Referral ID Status Reason Start Date Expiration Date V isits Requested Visits Authorized [id number] Authorized 07/18/2023 07/17/2024 1 1 [facility] Work Phone: Summary Purpose Family History No Family History Records Found Mother Name Dates Details Family history of Primary Pa rkinson's disease(332.0, G20) Status:Active Family history of POTS (post ural orthostatic tachycardia syndrome)(427.89, I49.8) Status:Active Family history of cerebrovas cular accident (CVA)(V17.1, Z82.3) Status:Active Family history of malignant neoplasm of colon(V16.0, Z80.0) Status:Active Sister Name Dates Details Family history of POTS (post ural orthostatic tachycardia syndrome)(427.89, I49.8) Status:Active Brother Name Dates Details Family history of myocardial infarction(V17.3, Z82.49) Status:Active Family history of cardiac di sorder(V17.49, Z82.49) Status:Active Unknown Family Member Name Dates Details Family history of malignant neoplasm of colon: Mother(V16.0, Z80.0) Status:Active Family history of cerebrovas cular accident (CVA): Mother(V17.1, Z82.3) Status:Active POTS (postural orthostatic t achycardia syndrome): Mother, Sister Status:Active Primary Parkinson's disease: Mother Status:Active Family history of cardiac di sorder: Brother(V17.49, Z82.49) Status:Active Family history of myocardial infarction: Brother(V17.3, Z82.49) Status:Active Family history of migraine h eadaches: Mother(V17.2, Z82.0) Status:Active Aneurysm: Aunt Status:Active Unknown Family Member Name Dates Details Family history of myocardial infarction: Brother(V17.3, Z82.49) Status:Active Family history of cardiac di sorder: Brother(V17.49, Z82.49) Status:Active Primary Parkinson's disease: Mother Status:Active POTS (postural orthostatic t achycardia syndrome): Mother, Sister Status:Active Family history of cerebrovas cular accident (CVA): Mother(V17.1, Z82.3) Status:Active Family history of malignant neoplasm of colon: Mother(V16.0, Z80.0) Status:Active Aneurysm: Aunt Status:Active Family history of migraine h eadaches: Mother(V17.2, Z82.0) Status:Active Unknown Family Member Name Dates Details Family history of myocardial infarction: Brother(V17.3, Z82.49) Status:Active Family history of cardiac di sorder: Brother(V17.49, Z82.49) Status:Active Primary Parkinson's disease: Mother Status:Active POTS (postural orthostatic t achycardia syndrome): Mother, Sister Status:Active Family history of cerebrovas cular accident (CVA): Mother(V17.1, Z82.3) Status:Active Family history of malignant neoplasm of colon: Mother(V16.0, Z80.0) Status:Active Aneurysm: Aunt Status:Active Family history of migraine h eadaches: Mother(V17.2, Z82.0) Status:Active Unknown Family Member Name Dates Details Family history of myocardial infarction: Brother(V17.3, Z82.49) Status:Active Family history of cardiac di sorder: Brother(V17.49, Z82.49) Status:Active Primary Parkinson's disease: Mother Status:Active POTS (postural orthostatic t achycardia syndrome): Mother, Sister Status:Active Family history of cerebrovas cular accident (CVA): Mother(V17.1, Z82.3) Status:Active Family history of malignant neoplasm of colon: Mother(V16.0, Z80.0) Status:Active Aneurysm: Aunt Status:Active Family history of migraine h eadaches: Mother(V17.2, Z82.0) Status:Active Unknown Family Member Name Dates Details Family history of myocardial infarction: Brother(V17.3, Z82.49) Status:Active Family history of cardiac di sorder: Brother(V17.49, Z82.49) Status:Active Primary Parkinson's disease: Mother Status:Active POTS (postural orthostatic t achycardia syndrome): Mother, Sister Status:Active Family history of cerebrovas cular accident (CVA): Mother(V17.1, Z82.3) Status:Active Family history of malignant neoplasm of colon: Mother(V16.0, Z80.0) Status:Active Aneurysm: Aunt Status:Active Family history of migraine h eadaches: Mother(V17.2, Z82.0) Status:Active Unknown Family Member Name Dates Details Family history of myocardial infarction: Brother(V17.3, Z82.49) Status:Active Family history of cardiac di sorder: Brother(V17.49, Z82.49) Status:Active Primary Parkinson's disease: Mother Status:Active POTS (postural orthostatic t achycardia syndrome): Mother, Sister Status:Active Family history of cerebrovas cular accident (CVA): Mother(V17.1, Z82.3) Status:Active Family history of malignant neoplasm of colon: Mother(V16.0, Z80.0) Status:Active Aneurysm: Aunt Status:Active Family history of migraine h eadaches: Mother(V17.2, Z82.0) Status:Active Unknown Family Member Name Dates Details Family history of myocardial infarction: Brother(V17.3, Z82.49) Status:Active Family history of cardiac di sorder: Brother(V17.49, Z82.49) Status:Active Primary Parkinson's disease: Mother Status:Active POTS (postural orthostatic t achycardia syndrome): Mother, Sister Status:Active Family history of cerebrovas cular accident (CVA): Mother(V17.1, Z82.3) Status:Active Family history of malignant neoplasm of colon: Mother(V16.0, Z80.0) Status:Active Aneurysm: Aunt Status:Active Family history of migraine h eadaches: Mother(V17.2, Z82.0) Status:Active Vitamin D deficiency: Sister , Aunt, Cousin Comments:all sisters, aunts and cousins; Status:Active Unknown Family Member Name Dates Details Family history of myocardial infarction: Brother(V17.3, Z82.49) Status:Active Family history of cardiac di sorder: Brother(V17.49, Z82.49) Status:Active Primary Parkinson's disease: Mother Status:Active POTS (postural orthostatic t achycardia syndrome): Mother, Sister Status:Active Family history of cerebrovas cular accident (CVA): Mother(V17.1, Z82.3) Status:Active Family history of malignant neoplasm of colon: Mother(V16.0, Z80.0) Status:Active Aneurysm: Aunt Status:Active Family history of migraine h eadaches: Mother(V17.2, Z82.0) Status:Active Vitamin D deficiency: Sister , Aunt, Cousin Comments:all sisters, aunts and cousins; Status:Active Family history of kidney dis ease: Other(V18.69, Z84.1) Status:Active Family history of diabetes m ellitus: Mother(V18.0, Z83.3) Status:Active Advance Directives No Advanced Directives Records FoundNo Advanced Directives Records FoundNo Advanced Directives Records FoundNo Advanced Directives Records FoundNo Advanced Directives Records FoundNo Advanced Directives Records FoundNo Advanced Directives Records FoundNo Advanced Directives Records FoundNo Advanced Directives Records FoundNo Advanced Directives Records Found Chief Complaint medckmedckmedck Additional Source Comments INFORMATION SOURCE (unrecogn ized section and content) DATE CREATED AUTHOR 03/15/2019 [facility] DATE CREATED AUTHOR AUTHOR'S ORGANIZ ATION 05/03/2020 [facility] DATE CREATED AUTHOR AUTHOR'S ORGANIZ ATION 05/18/2020 [facility] DATE CREATED AUTHOR AUTHOR'S ORGANIZ ATION 09/24/2021 [facility] DATE CREATED AUTHOR AUTHOR'S ORGANIZ ATION 05/12/2022 [facility] DATE CREATED AUTHOR AUTHOR'S ORGANIZ ATION 08/21/2022 [facility] DATE CREATED AUTHOR AUTHOR'S ORGANIZ ATION 01/12/2023 [facility] DATE CREATED AUTHOR AUTHOR'S ORGANIZ ATION 06/01/2023 [facility] DATE CREATED AUTHOR AUTHOR'S ORGANIZ ATION 02/02/2024 [facility] DATE CREATED AUTHOR AUTHOR'S ORGANIZ ATION 03/01/2024 [facility] Source Comments (unrecognize d section and content) In the event this informatio n is protected by the Federal Confidentiality of Alcohol and Drug Abuse Patient Records regulations: The Federal rules restrict any use of the information to criminally investigate or prosecute any alcohol or drug abuse patient.[facility]healthIn the event this information is protected by the Federal Confidentiality of Alcohol and Drug Abuse Patient Records regulations: The Federal rules restrict any use of the information to criminally investigate or prosecute any alcohol or drug abuse patient.[facility] Reason for Visit (unrecogniz ed section and content) Reason Comments Pain All over Reason Comments Med Management Reason Comments New Nail Fungus Reason Comments Med Management Specialty Diagnoses / Procedures Referred By Contac t Referred To Contact Primary Care Diagnoses PTSD (post-traumatic stress disorder) Procedures Follow Up In Primary Care Mega Rivas MD [address] [facility], [place] [address] Referral ID Status Reason Start Date Expiration Date Visits Re quested Visits Authorized [id number] Closed 11/16/2022 05/15/2023 1 1 Reason Comments Follow-up 1 month follow up we ight Specialty Diagnoses / Procedures Referred By Contac t Referred To Contact Primary Care Diagnoses Class 1 obesity due to excess calories with serious comorbidity and body mass index (BMI) of 33.0 to 33.9 in adult Procedures Follow Up In Primary Care - Established Mega Rivas MD [address] [facility], [place] [address] Referral ID Status Reason Start Date Expiration Date V isits Requested Visits Authorized [id number] Authorized 07/18/2023 07/17/2024 1 1 Reason Comments Follow-up 1 month weight, also has cough, sneezing, headaches, dizziness, st x1 week Reason Comments 6 mth ov Specialty Diagnoses / Procedures Referred By Contac t Referred To Contact Primary Care Diagnoses PTSD (post-traumatic stress disorder) Procedures Follow Up In Primary Care - Established Mega Rivas MD [address] [facility], [place] [address] Referral ID Status Reason Start Date Expiration Date V isits Requested Visits Authorized [id number] Authorized 05/27/2023 05/26/2024 1 1 Reason Comments Follow-up Discuss weight loss medication Care Teams (unrecognized sec tion and content) Videotape Editor Relationship Specialty Start Date End Date Mega Rivas MD PCP - General Family Medicine 05/23/17 Videotape Editor Relationship Specialty Start Date End Date Mega Rivas MD [address] [facility], [address] [place] [address] PCP - General 04/14/19 Mega Rivas MD [address] [facility], [address] [place] [address] PCP - [place] [facility] PCP 07/15/21 Videotape Editor Relationship Specialty Start Date End Date Mega Rivas MD PCP - General Family Medicine 05/23/17 Videotape Editor Relationship Specialty Start Date End Date Mega Rivas MD [address] [facility], [address] [place] [address] PCP - General 04/14/19 Mega Rivas MD [address] [facility], [address] [place] [address] PCP - [facility] PCP 07/15/21 Mega Rivas MD [address] [facility], [address] [place] [address] PCP - [facility] Attributed Provider 07/15/22 Videotape Editor Relationship Specialty Start Date End Date Mega Rivas MD [address] [facility], [address] [place] [address] PCP - General 04/14/19 Mega Rivas MD [address] [facility], [address] [place] [address] PCP - [place] [facility] PCP 07/15/21 Mega Rivas MD [address] [facility], [address] [place] [address] PCP - [facility] Attributed Provider 07/15/22 Videotape Editor Relationship Specialty Start Date End Date Mega Rivas MD [address] [facility], [address] [place] [address] PCP - General 04/14/19 Mega Rivas MD [address] [facility], [address] [place] [address] PCP - [place] [facility] PCP 07/15/21 Mega Rivas MD [address] [facility], [address] [place] [address] PCP - [facility] Attributed Provider 07/15/22 Videotape Editor Relationship Specialty Start Date End Date Mega Rivas MD [address] [facility], [address] [place] [address] PCP - General 04/14/19 Mega Rivas MD [address] [facility], [address] [place] [address] PCP - [place] [facility] PCP 07/15/21 Mega Rivas MD [address] [facility], [address] [place] [address] PCP - [facility] Attributed Provider 07/15/22 Videotape Editor Relationship Specialty Start Date End Date Mega Rivas MD [address] [facility], [address] [place] [address] PCP - General 04/14/19 Mega Rivas MD [address] [facility], [address] [place], [facility] PCP - [place] [facility] PCP 07/15/21 Mega Rivas MD [address] [facility], [address] [place] [address] PCP - [facility] Attributed Provider 07/15/22 FOR RECORDS PERTAINING TO PATIENTS WHO ARE OR HAVE BEEN ENROLLED IN A CHEMICAL DEPENDENCY/SUBSTANCEABUSE PROGRAM, SOME INFORMATION MAY BE OMITTED. This clinical summary was aggregated from multiple sources. Caution should be exercised in using it in the provision of clinical care. This summary normalizes information from multiple sources, and as a consequence, information in this document may materially change the coding, format and clinical context of patient data. In addition, data may be omitted in some cases. CLINICAL DECISIONS SHOULD BE BASED ON THE PRIMARY CLINICAL RECORDS. [facility]. provides no warranty or guarantee of the accuracy or completeness of information in this document.
[2024-05-08 13:54] LABS: Estradiol 23.9 pg/mL; Follicle Stimulating Hormone 30.2 mIU/mL
== END | disposition home or self-care (01) ==
PROVIDERS: PCP Family Medicine; Visit Provider Obstetrics & Gynecology
DX: Z12.31 Encounter for screening mammogram for malignant neoplasm of breast (principal); N95.1 Menopausal and female climacteric states
CPT/HCPCS: 36415; 77063; 77067; 82670; 83001

== ENCOUNTER → 2025-02-01 | Outpatient (CLI) | payer BC, MEDICARE, SELFPAY ==
[2025-02-01 12:52] LABS: Hematocrit 39.7 % (37-47); Hemoglobin 13.1 g/dL (12.0-15.0); Immature Granulocytes Count 0.010 X10^3/uL (0.0-0.0); Mean Corp Hgb Conc 33.0 g/dL (32-36); Mean Corpuscular Volume 92.8 fL (81-99); Mean Platelet Vol. 10.8 fl (6.2-12.0); NRBC Flagged by Analyzer 0 % (0-5); Platelet Count 289 K/mm3 (150-450); RBC Distribution Width CV 13.2 % (11.6-14.6); RBC Distribution Width SD 44.9 fl (35.1-43.9); Red Blood Count 4.28 M/mm3 (4.2-5.4); White Blood Count 4.7 K/mm3 (4.4-11.0)
[2025-02-01 13:38] LABS: AST(SGOT) 30 U/L (<=31); Alanine Aminotransfer ALT/SGPT 29 U/L (<=34); Albumin, Serum 4.3 g/dL (3.5-5.0); Alkaline Phosphatase 60 U/L (35-104); Anion Gap 11 (5-15); BUN 15 mg/dL (4-19); BUN/Creat Ratio 21.7 RATIO (10-20); Calcium,Total 9.5 mg/dL (7.6-11.0); Carbon Dioxide 25.2 mmol/L (21.0-32.0); Chloride 106 mmol/L (98-108); Globulin 2.9 g/dL (2.2-4.2); Glucose 101 mg/dL (70-99); Potassium 4.0 mmol/L (3.3-5.1)
[2025-02-01 13:39] LABS: CORTISOL AM 5.24 ug/dL (6.02-18.40); CRP < 3.00 mg/L (0.0-3.0); Ferritin 36 ng/mL (22-378); Free T3 3.2 pg/mL (2.18-3.98); Magnesium 2.3 mg/dL (1.5-2.2); Vitamin B12 441 pg/mL (180-914); Vitamin D,25 Hydroxy 24.4 ng/mL (30-100)
[2025-02-03 14:09] LABS: Anti-Chromatin <0.2 AI (0.0-0.9); Anti-Jo <0.2 AI (0.0-0.9); Anti-dsDNA Ab 1 IU/mL (0-9); SJOGREN'S Anti-SS-A test < 0.2 AI (0.0-0.9); SJOGREN'S Anti-SS-B test < 0.2 AI (0.0-0.9)
== END | disposition home or self-care (01) ==
PROVIDERS: PCP Family Medicine; Visit Provider Family Medicine
DX: R53.83 Other fatigue (principal)
CPT/HCPCS: 36415; 80053; 81374; 82306; 82533; 82607; 82728; 83036; 83735; 84439; 84443; 84445; 84481; 85025; 85652; 86140; 86225; 86235; 86376; 86431; 86800

== ENCOUNTER → 2025-03-12 | Outpatient (CLI) | payer BC, MEDICARE, SELFPAY | END | disposition home or self-care (01) | LOC: LAB 14:56 → LABSPEC 15:00 | PROVIDERS: PCP Family Medicine; Referring Provider Family Medicine; Visit Provider Family Medicine | DX: R89.1 Abnormal level of hormones in specimens from other organs, systems and tissues (principal) | CPT/HCPCS: 81050; 82530 ==